=== PATIENT | male | born 1955 | race Caucasian/White ===

== ENCOUNTER → 2020-07-29 09:27 | Outpatient (REF) | payer MEDICARE, MEDICAID, SELFPAY ==
--- NOTE | 2020-07-29 09:30 | CA_ITS ---
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 The visually estimated ejection fraction is between 60-65%. - There is mild to moderate aortic valve stenosis (more towards mild). Findings Procedure Information Contrast agent, definity, is being given per protocol without apparent complications. Left Ventricle Normal left ventricular cavity size. There is mildly increased left ventricular wall thickness. The left ventricular systolic function is normal. The visually estimated ejection fraction is between 60-65%. There is no evidence of regional wall motion abnormalities. Diastolic function is normal for age. Right Ventricle Normal right ventricular cavity size and systolic function. Atria The left atrium is normal in size. The right atrium is normal in size. Aortic Valve There is a normal trileaflet aortic valve. There is moderate calcification of the aortic valve. There is mild to moderate aortic valve stenosis. The peak aortic velocity is 2.74 m/s with a calculated peak gradient of 30 mmHg. The mean gradient is 17 mmHg. The aortic valve area is 1.30 cm2. There is no aortic valve regurgitation. Mitral Valve The mitral valve appears normal. There is trace mitral valve regurgitation. There is no mitral valve stenosis. Pulmonic Valve The pulmonic valve was not well visualized. Tricuspid Valve Normal tricuspid valve structure. There is trace tricuspid valve regurgitation. The pulmonary artery systolic pressure is normal. Great Vessels The aortic annulus, sinuses of valsalva, and asc aorta are normal in size. Venous The inferior vena cava is normal in size and collapses greater than 50% with inspiration. Pericardium/Pleural There is no evidence of pericardial effusion. Prior Study Comparison No significant change compared to prior study dated: 06/24/2019. Measurements 2D Linear Measurements RVADd: 0.31 RVIDd: 2.83 IVSd: 1.12 0.6-0.9/0.6-1.0 cm LVIDd: 5.18 3.9-5.3/4.2-5.9 cm LVIDs: 3.35 2.0-3.6 cm LVPWd: 1.13 0.7-1.1 cm Ao Root: 3.24 2.1-3.5 cm LA Diam: 3.80 2.7-3.8/3.0-4.0 cm LV Mass: 281.48 67-162/88-224 g LVOT Diam: 2.00 3.0+(-)1.3 cm Mitral Valve MV Pk E: 0.78 MV PK A: 0.75 MV Decel Time: 295.55 E/A: 1.03 E'Lateral: 0.08 E'Medial: 0.07 Decel [place]: 2.63 Aortic Valve AoV Pk Alvin: 2.74 AoV Mn Alvin: 1.99 AoV VTI: 0.54 AoV Pk Grad: 30.07 Aov Mn Grad: 16.86 JIMBO Cont.VTI: 1.30 LVOT LVOT Pk Alvin: 1.11 LVOT Mn Alvin: 0.66 LVOT VTI: 0.19 LVOT Pk Grad: 4.96 LVOT Mn Grad: 2.25 LVOT Diam: 2.00 LVOT Area: 3.15 Diastolic Function MV Pk E: 0.78 MV Pk A: 0.75 E/A: 1.03 E'Medial: 0.07 E' Laterial: 0.08 Tricuspid Valve RA Press: 8.00 Great Vessels Aorta Ao Root-2D: 3.24 2.0-3.7 cm Ao Asc: 3.60 2.1-3.4 cm Ao Arch: 2.76 Updated in Other Vendor System with Status of Final Chente Deras MD electronically signed on 07/31/2020 10:34:27 AM with status of Final
== END ==
LOC: HO.CARD 09:27
PROVIDERS: PCP Internal Medicine; Visit Provider Internal Medicine Cardiovascular Disease
DX: I25.10 Atherosclerotic heart disease of native coronary artery without angina pectoris (principal); I10 Essential (primary) hypertension; I35.0 Nonrheumatic aortic (valve) stenosis
CPT/HCPCS: 93306; Q9957

== ENCOUNTER → 2020-08-30 13:44 | Outpatient (BNVA) | payer MEDICARE, MEDICAID, SELFPAY | PROVIDERS: PCP Internal Medicine; Visit Provider Internal Medicine Cardiovascular Disease | DX: R07.9 Chest pain, unspecified (principal); I35.0 Nonrheumatic aortic (valve) stenosis; I25.10 Atherosclerotic heart disease of native coronary artery without angina pectoris; Z79.899 Other long term (current) drug therapy | CPT/HCPCS: 93005; 99212 ==

== ENCOUNTER → 2020-09-27 08:45 | Outpatient (REF) | payer MEDICARE, MEDICAID, SELFPAY ==
--- NOTE | 2020-09-27 08:30 | CA_ITS ---
Acquisition Time: 2020-09-27 08:59:52 Total Exercise Time: 00:04:56 Test Indications: Chest Pain Medications: ALBUTEROL AMLODIPINE ATORVASTATIN DEXAMETHASONE FINESTERIDE GABAPENTIN VALSARTAN Protocol: EVA Max HR: 157 BPM 101% of Pred: 155 BPM Max BP: 204/088 mmHG Max Work Load: 6.1 METS Exercise nuclear stress test using Eva protocol total of 4 min 56 sec. METS 6.1MHR of 157 which was 101% of MAPHR. Pt SOB and second stage modified, as he was becoming more SOB. Pt had CP, pressure like pain since he had COVID in July, pain did not change during exercise. EKG with occ PVC's, asymptomatic. Mild ST depressions in leads 2, and V4 and V5. Hypertensive response to exercise that normalizes in recovery. Nuclear images to follow. Test reviewed with Dr. Deras Referred By: Yaya Blanchard Overread By: Sis Lau
--- NOTE | 2020-09-27 09:17 | NM_ITS ---
Exercise Myocardial perfusion study Indication: Atherosclerotic heart disease to evaluate for myocardial ischemia Technique: The patient was brought in for an exercise perfusion study on 09/27/2020. Patient performed exercise as per Alexandro protocol and was injected 28 mCi of sestamibi was given intravenously one target HR was achieved. Images were obtained using the SPECT gamma camera interlaced with the gating device. Images were obtained in supine position. Resting perfusion study was performed on 09/29/2020. Patient was administered 28 mCi of sestamibi intravenously at rest. Images were then obtained in supine position. Images obtained with and without CT attenuation. Total DLP 78 mGy-cm. Images were processed with the software and compared side to side in short axis, horizontal long axis and vertical long axis views. Findings: The stress perfusion study showed non attenuated images show thinning of the basal and mid anterior wall of the LV myocardium reduction uptake. There is also mildly reduced uptake in the basal inferior wall of the LV myocardium. Attenuation corrected images show mildly reduced uptake in the distal anterior and apex of the LV myocardium.. The gated study shows normal LV systolic function with calculated LVEF of 72%. LV cavity is mildly dilated in size. The gated study shows systolic wall thickening and contraction of all segments. There is no transient ischemic dilation. Resting study shows attenuated corrected images show improved uptake in the distal septum and apex in the inferior wall of the LV myocardium.. Gating at rest reveals normal systolic wall motion with ejection fraction at 4%. The findings are consistent with small area of mild intensity distal septal, distal anterior and apical reversible defect suggestive of ischemia in LAD territory. NM/NM cardiolite stress test Impression: 1. Mild intensity small area of distal LAD territory 2. Gated LVEF is 72% 3. Transient ischemic dilatation not present but LV cavity is dilated Stress EKG is equivocal for ischemia
== END ==
LOC: HO.CARD 08:45
PROVIDERS: PCP Internal Medicine; Visit Provider Internal Medicine Cardiovascular Disease
DX: I25.10 Atherosclerotic heart disease of native coronary artery without angina pectoris (principal); I35.0 Nonrheumatic aortic (valve) stenosis; I10 Essential (primary) hypertension; E78.5 Hyperlipidemia, unspecified
CPT/HCPCS: 78452; 93017; 93306; A9500

== ENCOUNTER → 2020-10-27 11:10 | Outpatient (BNVA) | payer MEDICARE, MEDICAID, SELFPAY | PROVIDERS: PCP Internal Medicine; Visit Provider Urology | DX: N41.9 Inflammatory disease of prostate, unspecified (principal) | CPT/HCPCS: 81002; 99212 ==

== ENCOUNTER 2020-11-06 17:39 | Emergency (ER) | payer MEDICARE, MEDICAID, SELFPAY ==
[2020-11-06 19:49] VITALS: BP 175/109; PULSE 84; RESP 18; TEMP 36.8; O2SAT 96
[2020-11-06 21:43] VITALS: BP 153/81; PULSE 78; RESP 18; O2SAT 96
[2020-11-06 21:53] LABS: MANUAL DIFF FLAG NO
[2020-11-06 21:59] LABS: Basophils Percent Auto 0.6 % (0-2); Eosinophils Absolute Auto 0.2 X10*3/uL (0.0-0.4); Eosinophils Percent Auto 3.1 % (0-4); Hematocrit 37.3 % (42-52); Hemoglobin 12.4 g/dl (14.0-18.0); Imm Gran Abs Auto 0.01 X10*3/uL (0.00-0.03); Imm Gran Pct Auto 0.1 % (0.0-0.4); Lymphocytes Absolute Auto 2.4 X10*3/uL (1.2-4.9); Lymphocytes Percent Auto 34.1 % (20-40); Mean Corpuscular HGB Conc 33.2 g/dl (31.0-36.0); Mean Corpuscular Hemoglobin 26.7 pg (27.0-33.0); Mean Corpuscular Volume 80.2 fL (80-98); Mean Platelet Volume 9.5 fL (9.4-12.4); Monocytes Absolute Auto 0.7 X10*3/uL (0.1-1.2); Monocytes Percent Auto 9.5 % (2-11); Neutrophils Absolute Auto 3.8 X10*3/uL (2.0-8.3); Neutrophils Percent Auto 52.6 % (45-73); Platelet Count 244 X10*3/uL (160-400); Red Blood Count 4.65 X10*6/uL (4.60-5.80); Red Cell Distribution Width 14.2 % (11.0-16.0); White Blood Count 7.2 X10*3/uL (4.8-10.8)
[2020-11-06 22:16] VITALS: BP 159/82; PULSE 71; RESP 18; O2SAT 96
[2020-11-06 22:20] LABS: Anion Gap 14 (12-20); Blood Urea Nitrogen 14 mg/dL (9-16); Calcium 9.1 mg/dL (8.4-10.2); Carbon Dioxide 25 mmol/L (22-29); Chloride 107 mmol/L (96-108); Estimated Glomerular Filt Rate > 60; Glucose Random 115 mg/dL (60-115); Potassium 3.6 mmol/l (3.3-5.1); Sodium 142 mmol/L (135-145)
[2020-11-06 22:26] LABS: Glucose Urine UA NEG (NEG); Leukocyte Esterase Urine NEG (NEG); Nitrite Urine NEG (NEG); Urine Blood NEG (NEG); Urine Ketones NEG (NEG); Urine Protein NEG (NEG-TRACE)
[2020-11-06 22:29] LABS: Appearance Urine CLEAR; Color Urine YELLOW
--- NOTE | 2020-11-06 22:40 | ECG_ITS ---
Test Reason : CHEST PAIN Blood Pressure : / mmHG Vent. Rate : 070 BPM Atrial Rate : 070 BPM P-R Int : 164 ms QRS Dur : 096 ms QT Int : 422 ms P-R-T Axes : 031 003 024 degrees QTc Int : 455 ms Normal sinus rhythm Normal ECG When compared with ECG of 25-AUG-2019 21:07, No significant change was found Referred By: Elizabeth Nelson Electronically Signed By:ALBERTINA FULLER
--- NOTE | 2020-11-06 22:55 | ED_ITS ---
HPI - General Adult General Chief complaint: General Medical Stated complaint: hot sweats Time Seen by Provider: 11/06/20 22:25 Source: patient Mode of arrival: ambulatory Limitations: no limitations History of Present Illness HPI narrative: Patient comes emergency room complaining of 3 episodes of sweating. Patient states that today he had 3 episodes of sweating, unrelated to exertion. Patient states this has never happened before. Patient states that he did not have any chest pain or shortness of breath or dizziness. The sweating episode lasted for a few seconds, felt like a cold sweat, and self-resolved. Patient decided to come to emergency room to get checked. At this time, patient is asymptomatic, no sweating, no chest pain or shortness of breath and no dizziness. No fever. Related Data Home Medications Medication Instructions Recorded Confirmed albuterol sulfate 90 mcg/actuation INHALATION 08/30/20 aerosol inhaler amlodipine 5 mg tablet 5 mg PO DAILY 08/30/20 atorvastatin 20 mg tablet 20 mg PO DAILY 08/30/20 dexamethasone 2 mg tablet 6 mg PO QAM 08/30/20 dexlansoprazole 60 mg 60 mg PO DAILY 08/30/20 capsule,biphase delayed release diclofenac sodium 75 mg 75 mg PO BID 08/30/20 tablet,delayed release finasteride 5 mg tablet 5 mg PO DAILY 08/30/20 fluticasone furoate 100 INHALATION 08/30/20 mcg-vilanterol 25 mcg/dose inhalation powder fluticasone propionate 50 2 spray INTRANASAL DAILY 08/30/20 mcg/actuation nasal spray,suspension gabapentin 300 mg capsule 300 mg PO DAILY cap 08/30/20 lorazepam 0.5 mg tablet 0.5 mg PO DAILY PRN 08/30/20 valsartan 160 mg tablet 160 mg PO DAILY 08/30/20 Previous Rx's Medication Instructions Recorded ciprofloxacin HCl 500 mg tablet 500 mg PO Q12H 14 Days #28 tab 10/27/20 meloxicam 15 mg tablet 15 mg PO DAILY 30 Days #30 tab 10/27/20 prednisone 20 mg tablet 20 mg PO DAILY 5 Days #5 tab 10/27/20 Allergies Allergy/AdvReac Type Severity Reaction Status Date / Time No Known Allergies Allergy Unverified 07/07/20 15:19 [No Known Allergies*] Review of Systems Review of Systems: Constitutional : No Weight loss, No Fever, No Chills, No Night Sweats, No Fatigue, No Malaise , complaining of cold sweats ENT/Mouth : No Hearing loss, No Ear Pain, No Nasal Congestion, No Sinus Pain, No Hoarseness, No sore throat, No Rhinorrhea, No Swallowing Difficulty Eyes: No Eye Pain, No Swelling, No Redness, No Foreign Body, No Discharge, No Vision Changes Cardiovascular : No Chest Pain, No SOB, No Dyspnea on Exertion, No Orthopnea, No Edema, No Palpitations Respiratory : No Cough, No Sputum, No Wheezing, No Smoke Exposure, No Dyspnea Gastrointestinal : No Nausea, No Vomiting, No Diarrhea, No Constipation, No abdominal Pain, No Hematochezia, No Melena Genitourinary : no irregular bleeding, No Dysuria, No Urinary Frequency, No Hematuria, No Urinary Incontinence, No Urgency, No Flank Pain, No Urinary Flow Changes, No Hesitancy Musculoskeletal : No joint pain, No Myalgias, No Joint Swelling Skin : No Skin Lesions, No rash Neuro : No Weakness, No Numbness, No Paresthesias, No Loss of Consciousness, No Dizziness, No Headache Psych : No Anxiety/Panic, No Depression, No SI/HI/AH/VH, No Social Issues, Heme/Lymph: No Bruising, No Bleeding,No Lymphadenopathy Endocrine : No Polyuria, No Polydipsia, No Temperature Intolerance PMFSH Past Medical History Medical History Aortic stenosis CAD (coronary artery disease) HTN (hypertension) Hyperlipidemia Surgical History Hx of cystoscopy Hx of sigmoidoscopy Family History Family History Father Cardiac arrest Hyperlipemia Mother No problems noted. Brother Cardiac arrest Social History Social History Smoking Status: Never smoker Advance Directives: No Advance Directives Information Provided: Yes Physical Exam Vital Signs: Vital Signs: Last Vital Signs Temp 97.7 F 11/06/20 23:45 Pulse 70 11/06/20 23:45 Resp 18 11/06/20 23:45 BP 154/90 H 11/06/20 23:45 Pulse Ox 97 11/06/20 23:45 Body Mass Index 34.3 Appearance: Alert. Oriented X3. No acute distress. Eyes: Pupils equal, round and reactive to light. ENT: Pharynx normal. Neck: Normal inspection. Neck supple. No lymph nodes noted. No crepitus CVS: Normal heart rate and rhythm. Pulses normal. Normal S1 and S2 Respiratory: No respiratory distress. Breath sounds normal. No Wheezing. No rales Abdomen: Soft and nontender. No rigidity. No distention. good BS x4 Skin: Skin warm and dry. Normal skin color. Normal skin turgor. Extremities: No lower extremity edema. No lower extremity edema. No Laceration s. No Rash Neuro: Oriented X 3. No motor deficit. No sensory deficit. Moving all extermities. No slurred speech. Course Course Course Narrative: Patient has been completely asymptomatic in the emergency room, no sweating episodes, no chest pain or shortness of breath. Patient's troponin 1. Was slightly elevated at 8.0, EKG showed no ST segment depressions or elevations. Patient was supposed to get a troponin 2. At 12:50, patient states that he does not want to wait for the 2nd troponin, states he feels well, wants to be discharged home. I discussed with the patient that in order to make sure that the swelling episodes are not from cardiac origin, we should get a troponin, however patient declined states he will follow-up with his primary care doctor tomorrow. Medical Decision Making Lab Data Result diagrams: 11/06/20 21:49 11/06/20 21:49 Labs: Lab Results 11/06/20 11/06/20 11/06/20 Range/Units 21:49 21:49 21:49 WBC 7.2 (4.8-10.8) X10*3/uL RBC 4.65 (4.60-5.80) X10*6/uL Hgb 12.4 L (14.0-18.0) g/dl Hct 37.3 L (42-52) % MCV 80.2 (80-98) fL MCH 26.7 L (27.0-33.0) pg MCHC 33.2 (31.0-36.0) g/dl RDW 14.2 (11.0-16.0) % Plt Count 244 (160-400) X10*3/uL MPV 9.5 (9.4-12.4) fL Immature Gran % (Auto) 0.1 (0.0-0.4) % Neut % (Auto) 52.6 (45-73) % Lymph % (Auto) 34.1 (20-40) % [place] % (Auto) 9.5 (2-11) % Eos % (Auto) 3.1 (0-4) % Baso % (Auto) 0.6 (0-2) % Lymph # (Auto) 2.4 (1.2-4.9) X10*3/uL [place] # (Auto) 0.7 (0.1-1.2) X10*3/uL Eos # (Auto) 0.2 (0.0-0.4) X10*3/uL Baso # (Auto) 0.0 (0.0-0.2) X10*3/uL Abs Immat Gran (auto) 0.01 (0.00-0.03) X10*3/uL Absolute Neuts (auto) 3.8 (2.0-8.3) X10*3/uL Absolute Nucleated RBC 0.000 (0.0-0.012) X10*3/uL Nucleated RBC % (auto) 0.0 (0.0-0.2) /100WBC Hold Purple Top SEE NOTE Hold Blue Top Sodium 142 (135-145) mmol/L Potassium 3.6 (3.3-5.1) mmol/l Chloride 107 (96-108) mmol/L Carbon Dioxide 25 (22-29) mmol/L Anion Gap 14 (12-20) BUN 14 (9-16) mg/dL Creatinine 0.96 (0.5-1.4) mg/dL Estim Creat Clear Calc TNP Estimated GFR > 60 Random Glucose 115 (60-115) mg/dL Calcium 9.1 (8.4-10.2) mg/dL Troponin I High Sens (<3.5-35.0) ng/L Urine Color Urine Appearance Urine pH (5.0-8.0) Ur Specific [place] (1.005-1.025) Urine Protein (NEG-TRACE) MG/DL Urine Glucose (UA) (NEG) MG/DL Urine Ketones (NEG) MG/DL Urine Blood (NEG) Urine Nitrite (NEG) Ur Leukocyte Esterase (NEG) 01/17/21 01/17/21 01/17/21 Range/Units 21:49 21:49 22:18 WBC (4.8-10.8) X10*3/uL RBC (4.60-5.80) X10*6/uL Hgb (14.0-18.0) g/dl Hct (42-52) % MCV (80-98) fL MCH (27.0-33.0) pg MCHC (31.0-36.0) g/dl RDW (11.0-16.0) % Plt Count (160-400) X10*3/uL MPV (9.4-12.4) fL Immature Gran % (Auto) (0.0-0.4) % Neut % (Auto) (45-73) % Lymph % (Auto) (20-40) % [place] % (Auto) (2-11) % Eos % (Auto) (0-4) % Baso % (Auto) (0-2) % Lymph # (Auto) (1.2-4.9) X10*3/uL [place] # (Auto) (0.1-1.2) X10*3/uL Eos # (Auto) (0.0-0.4) X10*3/uL Baso # (Auto) (0.0-0.2) X10*3/uL Abs Immat Gran (auto) (0.00-0.03) X10*3/uL Absolute Neuts (auto) (2.0-8.3) X10*3/uL Absolute Nucleated RBC (0.0-0.012) X10*3/uL Nucleated RBC % (auto) (0.0-0.2) /100WBC Hold Purple Top Hold Blue Top SEE NOTE Sodium (135-145) mmol/L Potassium (3.3-5.1) mmol/l Chloride (96-108) mmol/L Carbon Dioxide (22-29) mmol/L Anion Gap (12-20) BUN (9-16) mg/dL Creatinine (0.5-1.4) mg/dL Estim Creat Clear Calc Estimated GFR Random Glucose (60-115) mg/dL Calcium (8.4-10.2) mg/dL Troponin I High Sens 8.1 (<3.5-35.0) ng/L Urine Color YELLOW Urine Appearance CLEAR Urine pH 7.0 (5.0-8.0) Ur Specific [place] 1.020 (1.005-1.025) Urine Protein NEG (NEG-TRACE) MG/DL Urine Glucose (UA) NEG (NEG) MG/DL Urine Ketones NEG (NEG) MG/DL Urine Blood NEG (NEG) Urine Nitrite NEG (NEG) Ur Leukocyte Esterase NEG (NEG) ECG Data Attestation: I personally reviewed and interpreted this ECG as follows: (Heart rate 70, sinus rhythm, QTC 455, nonspecific T-wave inversions in lead III, nonspecific ST elevation in lead aVL and V6 less than 1 mm) Discharge Plan Discharge Clinical Impression: Sweating, HTN (hypertension) Patient Disposition: Home, Self-Care Additional Instructions: Please follow-up with her primary care physician tomorrow, you may need readjustment with your blood pressure medications. At this time we will not change your current dose. Please follow-up with your primary care physician tomorrow. If you have any worsening or new symptoms, please return to the emergency room or call 911 Prescriptions: No Action finasteride 5 mg tablet 5 mg PO DAILY RF: 0 Breo Ellipta 100-25 mcg/dose blister with device inhalation RF: 0 dexamethasone 2 mg tablet 6 mg PO QAM RF: 0 fluticasone propionate 50 mcg/actuation spray,suspension 2 spray intranasal DAILY RF: 0 albuterol sulfate 90 mcg/actuation HFA aerosol inhaler inhalation RF: 0 lorazepam 0.5 mg tablet 0.5 mg PO DAILY PRN (Reason: anxiety) RF: 0 amlodipine 5 mg tablet 5 mg PO DAILY RF: 0 valsartan 160 mg tablet 160 mg PO DAILY RF: 0 atorvastatin 20 mg tablet 20 mg PO DAILY RF: 0 Dexilant 60 mg capsule,biphase delayed releas 60 mg PO DAILY RF: 0 diclofenac sodium 75 mg tablet,delayed release (DR/EC) 75 mg PO BID RF: 0 gabapentin 300 mg capsule 300 mg PO DAILY RF: 0 ciprofloxacin HCl 500 mg tablet 500 mg PO Q12H 14 Days Qty: 28 RF: 0 prednisone 20 mg tablet 20 mg PO DAILY 5 Days Qty: 5 RF: 0 meloxicam [Mobic] 15 mg tablet 15 mg PO DAILY 30 Days Qty: 30 RF: 0
[2020-11-06 23:02] VITALS: BP 150/76; PULSE 79; RESP 18; TEMP 36.6; O2SAT 96; BMI 34.3
[2020-11-06 23:24] LABS: Troponin-I High Sensitivity 8.1 ng/L (<3.5-35.0)
[2020-11-06 23:45] VITALS: BP 154/90; PULSE 70; RESP 18; TEMP 36.5; O2SAT 97
== END 2020-11-07 01:17 | disposition home or self-care (01) ==
PROVIDERS: Emergency Provider Emergency Medicine; PCP Internal Medicine
DX: R61 Generalized hyperhidrosis (principal); I10 Essential (primary) hypertension; Z20.822 Contact with and (suspected) exposure to COVID-19; Z79.899 Other long term (current) drug therapy
CPT/HCPCS: 36415; 80048; 81003; 84484; 85025; 93005; 99283; 99284

== ENCOUNTER → 2020-12-16 09:34 | Outpatient (BNVA) | payer MEDICARE, MEDICAID, SELFPAY | PROVIDERS: PCP Internal Medicine; Visit Provider Surgery | DX: R07.9 Chest pain, unspecified (principal); Z79.899 Other long term (current) drug therapy; M79.2 Neuralgia and neuritis, unspecified | CPT/HCPCS: 99212 ==

== ENCOUNTER → 2021-01-24 14:02 | Outpatient (BNVA) | payer MEDICARE, MEDICAID, SELFPAY | PROVIDERS: PCP Internal Medicine; Visit Provider Physician Assistant | DX: K21.9 Gastro-esophageal reflux disease without esophagitis (principal) | CPT/HCPCS: 99212 ==

== ENCOUNTER → 2021-01-25 10:37 | Outpatient (BNVA) | payer MEDICARE, MEDICAID, SELFPAY | PROVIDERS: Visit Provider Orthopaedic Surgery | DX: M19.011 Primary osteoarthritis, right shoulder (principal); M19.012 Primary osteoarthritis, left shoulder | CPT/HCPCS: 99212 ==

== ENCOUNTER → 2021-02-03 08:46 | Outpatient (BNVA) | payer MEDICARE, MEDICAID, SELFPAY | PROVIDERS: PCP Internal Medicine; Visit Provider Surgery | DX: M79.2 Neuralgia and neuritis, unspecified (principal); Z79.899 Other long term (current) drug therapy; Z90.2 Acquired absence of lung [part of] | CPT/HCPCS: 99212 ==

== ENCOUNTER 2021-02-22 09:13 | Outpatient (REF) | payer MEDICARE, MEDICAID, SELFPAY ==
[2021-02-22 11:02] LABS: Anion Gap 13 (12-20); Blood Urea Nitrogen 14 mg/dL (9-16); Calcium 9.5 mg/dL (8.4-10.2); Carbon Dioxide 27 mmol/L (22-29); Chloride 106 mmol/L (96-108); Estimated Glomerular Filt Rate > 60; Potassium 3.9 mmol/L (3.3-5.1); Sodium 142 mmol/L (135-145)
== END 2021-02-22 09:14 | disposition home or self-care (01) ==
LOC: HO.LAB 09:13
PROVIDERS: Visit Provider Internal Medicine Nephrology
DX: I10 Essential (primary) hypertension (principal); R80.9 Proteinuria, unspecified; N20.0 Calculus of kidney
CPT/HCPCS: 36415; 80051; 82310; 82565; 84520

== ENCOUNTER → 2021-03-02 10:55 | Outpatient (BNVA) | payer MEDICARE, MEDICAID, SELFPAY | PROVIDERS: PCP Internal Medicine; Visit Provider Nurse Practitioner Family | DX: Z01.810 Encounter for preprocedural cardiovascular examination (principal); I25.10 Atherosclerotic heart disease of native coronary artery without angina pectoris; E78.5 Hyperlipidemia, unspecified; I10 Essential (primary) hypertension; I35.0 Nonrheumatic aortic (valve) stenosis | CPT/HCPCS: 93005; 99212 ==

== ENCOUNTER 2021-04-07 11:34 | Outpatient (REF) | payer MEDICARE, MEDICAID, SELFPAY ==
[2021-04-07 14:12] LABS: Cholesterol 242 mg/dL; HDL Cholesterol 42 mg/dL; LDL Cholesterol Calculated 144 mg/dl; Triglycerides 282 mg/dL
[2021-04-07 14:26] LABS: PSA,Total (Free>4and<10) 2.77 ng/mL (0.00-4.00)
== END 2021-04-07 11:35 | disposition home or self-care (01) ==
LOC: HO.LAB 11:34
PROVIDERS: PCP Internal Medicine; Referring Provider Nurse Practitioner Family; Visit Provider Urology
DX: Z12.5 Encounter for screening for malignant neoplasm of prostate (principal); N40.0 Benign prostatic hyperplasia without lower urinary tract symptoms; E78.5 Hyperlipidemia, unspecified
CPT/HCPCS: 36415; 80061; 84153

== ENCOUNTER → 2021-04-14 10:24 | Outpatient (BNVA) | payer MEDICARE, MEDICAID, SELFPAY | PROVIDERS: PCP Internal Medicine; Visit Provider Urology | DX: N40.0 Benign prostatic hyperplasia without lower urinary tract symptoms (principal) | CPT/HCPCS: 99212 ==

== ENCOUNTER → 2021-05-16 12:40 | Outpatient (BNVA) | payer MEDICARE, MEDICAID, SELFPAY | PROVIDERS: PCP Internal Medicine; Referring Provider Internal Medicine; Visit Provider Nurse Practitioner Family | DX: Z13.89 Encounter for screening for other disorder (principal) | CPT/HCPCS: 93005; 99212 ==

== ENCOUNTER 2021-05-16 13:51 | Emergency (ER) | payer MEDICARE, MEDICAID, SELFPAY ==
--- NOTE | ~2021-05-16 | XR_ITS ---
EXAMINATION: XR CHEST CLINICAL INFORMATION: Chest pain COMPARISON: Previous chest x-rays most recent August [address] June 2019 TECHNIQUE: Frontal view of the chest was obtained. FINDINGS: The cardiac and mediastinal contours are stable. The cardiac silhouette is slightly enlarged. The thoracic aorta is tortuous. The lungs are clear. There is no pleural effusion or pneumothorax. There are degenerative changes of the spine and at the shoulder joints. XR/XR chest 1V IMPRESSION: Stable enlargement of the cardiac silhouette and tortuosity of the thoracic aorta. No evidence for acute disease in the chest.
--- NOTE | 2021-05-16 13:56 | ECG_ITS ---
Test Reason : CHEST PAIN Blood Pressure : / mmHG Vent. Rate : 061 BPM Atrial Rate : 061 BPM P-R Int : 166 ms QRS Dur : 094 ms QT Int : 434 ms P-R-T Axes : 044 -13 002 degrees QTc Int : 436 ms Normal sinus rhythm Normal ECG When compared with ECG of 06-NOV-2020 22:56, No significant change was found Referred By: Jerrod Bullard Electronically Signed By:ALBERTINA FULLER
[2021-05-16 14:14] LABS: MANUAL DIFF FLAG NO
[2021-05-16 14:15] LABS: Basophils Percent Auto 0.6 % (0-2); Eosinophils Absolute Auto 0.2 X10*3/uL (0.0-0.4); Eosinophils Percent Auto 2.9 % (0-4); Hematocrit 37.2 % (42-52); Hemoglobin 12.6 g/dl (14.0-18.0); Imm Gran Abs Auto 0.02 X10*3/uL (0.00-0.03); Imm Gran Pct Auto 0.3 % (0.0-0.4); Lymphocytes Absolute Auto 1.9 X10*3/uL (1.2-4.9); Lymphocytes Percent Auto 27.6 % (20-40); Mean Corpuscular HGB Conc 33.9 g/dl (31.0-36.0); Mean Corpuscular Hemoglobin 26.8 pg (27.0-33.0); Mean Corpuscular Volume 79.1 fL (80-98); Mean Platelet Volume 9.7 fL (9.4-12.4); Monocytes Absolute Auto 0.7 X10*3/uL (0.1-1.2); Monocytes Percent Auto 9.5 % (2-11); Neutrophils Absolute Auto 4.1 X10*3/uL (2.0-8.3); Neutrophils Percent Auto 59.1 % (45-73); Platelet Count 243 X10*3/uL (160-400); Red Cell Distribution Width 13.2 % (11.0-16.0)
[2021-05-16 14:17] VITALS: BP 144/74; PULSE 60; RESP 14; TEMP 36.5; O2SAT 98; BMI 34.8
[2021-05-16] MEDS: 0.9 % Sodium Chloride 1,000 ML 999 ML IV (14:26)
--- NOTE | 2021-05-16 14:31 | ED.CHESTPAIN ---
HPI - Chest Pain General Chief Complaint: Chest Pain Stated Complaint: Chest Pain Time Seen by Provider: 05/16/21 14:18 Source: patient Mode of arrival: wheelchair Limitations: no limitations History of Present Illness HPI narrative: 65-year-old male who was brought to the emergency department for evaluation of chest pain. The patient was at the batt machine operator's office for preop clearance for an endoscopy. While he was in the batt machine operator's waiting room he developed chest pain. The following information was obtained from today's note by the nurse practitioner, Rica Pineda. Zac is a 65-year-old male with past medical history of hypertension, hyperlipidemia, [id number] , CAD with mildly abnormal stress test who presents for preop cardiovascular clearance for upper endoscopy. Today he reports that he has been getting some left sided chest discomfort at times without pattern. He has had it with sitting and with activity. It lasts above 10 min and usual goes away. He did get his discomfort when he sat down in the waiting room after arriving for this visit. It is still present and feels like a pressure. He has some left shoulder discomfort when raising up his left arm but states that is a different pains. He denies having any shortness of breath, palpitations, dizziness, presyncope, syncope, PND, orthopnea or edema today or recently. Planning endoscopy on 05/24/21. 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 Takes all meds as directed. The patient give me a very similar story regarding his chest pain. He states that the pain in the batt machine operator's office was a heaviness located in his left chest radiating to his left shoulder, the pain was 10/10. He was given 1 nitroglycerin sublingually and he states that he got very ?sweaty and he felt like he was going to pass out. The patient was then transported to the emergency department for evaluation. Here in the emergency department he states that his chest pain is 5/10. Related Data Home Medications Medication Instructions Recorded Confirmed albuterol sulfate 90 mcg/actuation 2 puff INHALATION Q4-6H PRN 08/30/20 05/16/21 aerosol inhaler dexamethasone 2 mg tablet 6 mg PO QAM 08/30/20 05/16/21 dexlansoprazole 60 mg 60 mg PO DAILY 08/30/20 05/16/21 capsule,biphase delayed release fluticasone furoate 100 INHALATION 08/30/20 05/16/21 mcg-vilanterol 25 mcg/dose inhalation powder fluticasone propionate 50 2 spray INTRANASAL DAILY 08/30/20 05/16/21 mcg/actuation nasal spray,suspension lorazepam 0.5 mg tablet 0.5 mg PO DAILY PRN 08/30/20 05/16/21 valsartan 160 mg tablet 160 mg PO DAILY 08/30/20 05/16/21 cyclobenzaprine 10 mg tablet 10 mg PO BID PRN 01/24/21 05/16/21 latanoprost 0.005 % eye drops 1 drp OPHTHALMIC (EYE) DAILY ml 01/24/21 05/16/21 diclofenac sodium 75 mg 75 mg PO BID 04/14/21 05/16/21 tablet,delayed release chlorthalidone 25 mg tablet 25 mg PO DAILY 05/16/21 05/16/21 Previous Rx's Medication Instructions Recorded meloxicam 15 mg tablet 15 mg PO DAILY 30 Days #30 tab 11/21/20 atorvastatin 40 mg tablet 40 mg PO BEDTIME 90 Days #90 tab 04/10/21 Allergies Allergy/AdvReac Type Severity Reaction Status Date / Time No Known Allergies Allergy Verified 05/16/21 12:59 [No Known Allergies*] Review of Systems Review of Systems: Yes all other systems are reviewed and are negative [facility] Past Medical History Medical History Acid reflux Aortic stenosis CAD (coronary artery disease) HTN (hypertension) Hyperlipidemia Surgical History H/O colonoscopy History of esophagogastroduodenoscopy (EGD) History of lung surgery Hx of cystoscopy Hx of sigmoidoscopy Family History Family History Father Cardiac arrest Hyperlipemia Mother No problems noted. Brother Cardiac arrest Social History Social History Household Members: Spouse Alcohol intake: current Alcohol intake frequency: does not drink Smoked in Last 30 Days: No Use of substances other than those prescribed or required for medical reasons: No Advance Directives: No Advance Directives Information Provided: Yes Physical Exam Vital Signs: Vital Signs: Last Vital Signs Temp 97.7 F 05/16/21 14:17 Pulse 60 05/16/21 14:17 Resp 14 05/16/21 14:17 BP 144/74 H 05/16/21 14:17 Pulse Ox 98 05/16/21 14:17 Body Mass Index 34.8 Const: General: cooperative and healthy appearing Orientation/consciousness: oriented to person and oriented to place Limitations: no limitations HENMT: Head: Yes normal to inspection, Yes normocephalic and Yes atraumatic Ears: external ears normal General nose exam: Normal external nose present Face and sinus: Yes normal facial exam Mouth: Normal oral and palatal mucosa present Throat: Yes posterior oropharynx normal Eyes: Periorbital: periorbital findings normal Eyelids: Yes eyelids normal Conjunctivae: conjunctivae normal Sclerae: sclerae normal Corneas: corneas normal Pupils: Equal, round and reactive pupils present Direct Ophthalmoscopy: normal light reflex Neck: Neck: Yes full ROM, Yes no lymphadenopathy, Yes no meningeal signs, Yes trachea midline and Yes supple Chest: Chest palpation & inspection: normal inspection of the chest and normal palpation of entire chest wall Resp: Effort & Inspection: normal respiratory effort and able to speak in complete sentences Auscultation: clear to auscultation bilaterally Cardio: Rate: regular rate Rhythm: regular rhythm Heart sounds: S1 normal heart sound present, S2 normal heart sound present and Murmur heart sound present systolic II/ and at the right sternal border GI: Inspection: Yes normal to inspection Palpation (GI): Soft to palpation, nontender, no guarding, not rigid and No hepatosplenomegaly present : General: Yes no CVA tenderness Back/Spine/Pelvis: Back: no CVA tenderness Cervical Spine: normal cervical lordosis Thoracic/Lumbar Spine: thoracic and lumbar spine normal to inspection Skin: Lesions: no lesions Rashes: no rashes Wounds: no wounds Neuro: General: oriented to person, oriented to place and no meningeal signs Cranial nerves: Yes CN's II-XII intact bilaterally and Yes Equal, round and reactive pupils present Cognition (Neuro): normal cognition Motor exam (neuro): 5/5 motor strength present throughout Extrem: General: Yes normal to inspection and Yes full ROM Psych: Appearance: well kempt Mental Status: mental status grossly normal Speech and movement: Normal speech and movement present Affect: normal affect Attitude: cooperative Thought process: Normal thought process present Thought content: Normal thought content present Course Course Course Narrative: 65-year-old male who presents emergency department for evaluation of chest pain that began while he was in the batt machine operator's waiting room. The patient describes the pain as a heaviness in his left chest that radiated left shoulder. The patient was treated with nitroglycerin which made him hypotensive and diaphoretic. Here in the emergency department he states that his pain is 5/10. The patient has been experiencing similar episodes of chest pain over the past 2-3 weeks, these episodes of chest pain do not appear to be related to his activity level. Patient's vital signs in the emergency department revealed a blood pressure of 144/74 otherwise were unremarkable. Examination did reveal a to of 6 systolic murmur otherwise exam was unremarkable. I did order a cardiac workup. Dr. Blanchard has requested an echocardiogram and this will be obtained to evaluate the patient's aortic valve and to evaluate for any wall motion abnormalities. The patient's initial 12 lead EKG revealed an inverted T-wave in 3 and a Q-wave in V1 otherwise was unremarkable. This was unchanged compared to an EKG obtained on 03/02/2021. 1645: Patient's laboratory evaluation revealed a detectable but not elevated troponin at 15.2. This will be repeated at 5:15 p.m. The rest of patient's laboratory evaluation is unremarkable. Chest x-ray radiology reading was as follows:Stable enlargement of the cardiac silhouette and tortuosity of the thoracic aorta. No evidence for acute disease in the chest. At the end of my shift, the patient's care was turned over to my colleague, Dr. Weinstein. MDM - Chest Pain Lab Data Result diagrams: 05/16/21 14:06 05/16/21 14:00 Labs: Lab Results 05/16/21 05/16/21 05/16/21 Range/Units 14:00 14:06 14:06 WBC 7.0 (4.8-10.8) X10*3/uL RBC 4.70 (4.60-5.80) X10*6/uL Hgb 12.6 L (14.0-18.0) g/dl Hct 37.2 L (42-52) % MCV 79.1 L (80-98) fL MCH 26.8 L (27.0-33.0) pg MCHC 33.9 (31.0-36.0) g/dl RDW 13.2 (11.0-16.0) % Plt Count 243 (160-400) X10*3/uL MPV 9.7 (9.4-12.4) fL Immature Gran % (Auto) 0.3 (0.0-0.4) % Neut % (Auto) 59.1 (45-73) % Lymph % (Auto) 27.6 (20-40) % [place] % (Auto) 9.5 (2-11) % Eos % (Auto) 2.9 (0-4) % Baso % (Auto) 0.6 (0-2) % Lymph # (Auto) 1.9 (1.2-4.9) X10*3/uL [place] # (Auto) 0.7 (0.1-1.2) X10*3/uL Eos # (Auto) 0.2 (0.0-0.4) X10*3/uL Baso # (Auto) 0.0 (0.0-0.2) X10*3/uL Abs Immat Gran (auto) 0.02 (0.00-0.03) X10*3/uL Absolute Neuts (auto) 4.1 (2.0-8.3) X10*3/uL Absolute Nucleated RBC 0.000 (0.0-0.012) X10*3/uL Nucleated RBC % (auto) 0.0 (0.0-0.2) /100WBC Sodium 142 Cancelled (135-145) mmol/L Potassium 3.4 Cancelled (3.3-5.1) mmol/L Chloride 102 Cancelled (96-108) mmol/L Carbon Dioxide 32 H Cancelled (22-29) mmol/L Anion Gap 11 L Cancelled (12-20) BUN 17 H Cancelled (9-16) mg/dL Creatinine 1.22 Cancelled (0.5-1.4) mg/dL Estim Creat Clear Calc 61.7 Cancelled Estimated GFR 60 Cancelled Random Glucose 105 Cancelled (60-115) mg/dL Calcium 9.3 Cancelled (8.4-10.2) mg/dL Total Bilirubin 0.5 (0.0-1.0) mg/dL AST 21 (5-37) U/L ALT 18 (0-40) U/L Alkaline Phosphatase 84 (39-117) U/L Troponin I High Sens (<3.5-35.0) ng/L Total Protein 7.3 (6.5-8.0) g/dL Albumin 4.2 (3.5-5.0) g/dL 05/16/21 Range/Units 14:06 WBC (4.8-10.8) X10*3/uL RBC (4.60-5.80) X10*6/uL Hgb (14.0-18.0) g/dl Hct (42-52) % MCV (80-98) fL MCH (27.0-33.0) pg MCHC (31.0-36.0) g/dl RDW (11.0-16.0) % Plt Count (160-400) X10*3/uL MPV (9.4-12.4) fL Immature Gran % (Auto) (0.0-0.4) % Neut % (Auto) (45-73) % Lymph % (Auto) (20-40) % [place] % (Auto) (2-11) % Eos % (Auto) (0-4) % Baso % (Auto) (0-2) % Lymph # (Auto) (1.2-4.9) X10*3/uL [place] # (Auto) (0.1-1.2) X10*3/uL Eos # (Auto) (0.0-0.4) X10*3/uL Baso # (Auto) (0.0-0.2) X10*3/uL Abs Immat Gran (auto) (0.00-0.03) X10*3/uL Absolute Neuts (auto) (2.0-8.3) X10*3/uL Absolute Nucleated RBC (0.0-0.012) X10*3/uL Nucleated RBC % (auto) (0.0-0.2) /100WBC Sodium (135-145) mmol/L Potassium (3.3-5.1) mmol/L Chloride (96-108) mmol/L Carbon Dioxide (22-29) mmol/L Anion Gap (12-20) BUN (9-16) mg/dL Creatinine (0.5-1.4) mg/dL Estim Creat Clear Calc Estimated GFR Random Glucose (60-115) mg/dL Calcium (8.4-10.2) mg/dL Total Bilirubin (0.0-1.0) mg/dL AST (5-37) U/L ALT (0-40) U/L Alkaline Phosphatase (39-117) U/L Troponin I High Sens 15.1 (<3.5-35.0) ng/L Total Protein (6.5-8.0) g/dL Albumin (3.5-5.0) g/dL Discharge Plan Discharge Prescriptions: No Action meloxicam [Mobic] 15 mg tablet 15 mg PO DAILY 30 Days Qty: 30 RF: 6 atorvastatin 40 mg tablet 40 mg PO BEDTIME 90 Days Qty: 90 RF: 1 diclofenac sodium 75 mg tablet,delayed release (DR/EC) 75 mg PO BID RF: 0 chlorthalidone 25 mg tablet 25 mg PO DAILY RF: 0 Breo Ellipta 100-25 mcg/dose blister with device inhalation RF: 0 dexamethasone 2 mg tablet 6 mg PO QAM RF: 0 fluticasone propionate 50 mcg/actuation spray,suspension 2 spray intranasal DAILY RF: 0 albuterol sulfate 90 mcg/actuation HFA aerosol inhaler 2 puff inhalation Q4-6H PRN (Reason: Wheezing) RF: 0 lorazepam 0.5 mg tablet 0.5 mg PO DAILY PRN (Reason: anxiety) RF: 0 valsartan 160 mg tablet 160 mg PO DAILY RF: 0 Dexilant 60 mg capsule,biphase delayed releas 60 mg PO DAILY RF: 0 latanoprost 0.005 % drops 1 drp ophthalmic (eye) DAILY RF: 0 cyclobenzaprine 10 mg tablet 10 mg PO BID PRN (Reason: Pain) RF: 0
[2021-05-16 14:40] LABS: Alanine Aminotransferase 18 U/L (0-40); Albumin Level 4.2 g/dL (3.5-5.0); Alkaline Phosphatase 84 U/L (39-117); Anion Gap 11 (12-20); Aspartate Amino Transferase 21 U/L (5-37); Bilirubin Total 0.5 mg/dL (0.0-1.0); Blood Urea Nitrogen 17 mg/dL (9-16); Calcium 9.3 mg/dL (8.4-10.2); Carbon Dioxide 32 mmol/L (22-29); Chloride 102 mmol/L (96-108); Creatinine Clr Calc Pharmacy 61.7; Estimated Glomerular Filt Rate 60; Glucose Random 105 mg/dL (60-115); Potassium 3.4 mmol/L (3.3-5.1); Sodium 142 mmol/L (135-145); Total Protein 7.3 g/dL (6.5-8.0)
[2021-05-16 14:41] LABS: Troponin-I High Sensitivity 15.1 ng/L (<3.5-35.0)
[2021-05-16 18:40] LABS: Troponin-I High Sensitivity 11.7 ng/L (<3.5-35.0)
== END 2021-05-16 21:05 | disposition home or self-care (01) ==
PROVIDERS: Emergency Provider Emergency Medicine Emergency Medical Services; PCP Internal Medicine
DX: R07.9 Chest pain, unspecified (principal); I10 Essential (primary) hypertension; E78.5 Hyperlipidemia, unspecified; Z79.02 Long term (current) use of antithrombotics/antiplatelets; Z79.899 Other long term (current) drug therapy
CPT/HCPCS: 36415; 71045; 80053; 84484; 85025; 93005; 96361; 96374; 96375; 99212; 99284

== ENCOUNTER 2021-05-18 15:10 | Outpatient (REF) | payer MEDICARE, MEDICAID, SELFPAY ==
[2021-05-18 16:27] LABS: Prothrombin Time 11.8 SEC (9.9-13.0)
== END 2021-05-18 15:11 | disposition home or self-care (01) ==
LOC: HO.LAB 15:10
PROVIDERS: PCP Internal Medicine; Visit Provider Nurse Practitioner Family
DX: Z01.810 Encounter for preprocedural cardiovascular examination (principal); R07.9 Chest pain, unspecified
CPT/HCPCS: 36415; 85610

== ENCOUNTER → 2021-05-23 10:14 | Outpatient (REF) | payer MEDICARE, MEDICAID, SELFPAY ==
--- NOTE | 2021-05-23 10:18 | CA_ITS ---
Transthoracic Echocardiogram Patient (Last, First, Middle): Zac Lainez, Gender: Male Date of : 1955 Age: 65 Procedure Date: 05/23/2021 Procedure Type: Transthoracic Echocardiogram Location: OP Height: 162.56 cm Weight: 90.72 kg BSA: 1.96 m2 Heart Rate: bpm BP: 147 / 84 mmHg [employer] Operator: ISABELA Referring MD: Rica Pineda PARAPROFESSIONAL INTERPRETERKody Symptoms: I35.0 - Nonrheumatic aortic (valve) stenosis Study Quality: Fair ECG Rhythm: Sinus Conclusions: - The left ventricular systolic function is normal. The calculated ejection fraction is 58% by biplane method. - There is mild to moderate aortic valve stenosis. Findings Left Ventricle Normal left ventricular cavity size. There is mildly increased left ventricular wall thickness. The left ventricular systolic function is normal. The calculated ejection fraction is 58% by biplane method. There is no evidence of regional wall motion abnormalities. Diastolic function is normal for age. Right Ventricle Normal right ventricular cavity size and systolic function. Atria Both atria are normal in size. Aortic Valve There is moderate calcification of the aortic valve. There is mild to moderate aortic valve stenosis. The peak aortic velocity is 2.77 m/s with a calculated peak gradient of 31 mmHg. The mean gradient is 17 mmHg. The aortic valve area is 1.11 cm2. There is trace (trivial) aortic valve regurgitation. Mitral Valve There is mild anterior mitral leaflet thickening. There is mild mitral annular calcification. There is no mitral valve regurgitation. There is no mitral valve stenosis. Pulmonic Valve The pulmonic valve was not well visualized. Tricuspid Valve Normal tricuspid valve structure. There is trace tricuspid valve regurgitation. The pulmonary artery systolic pressure is normal. Great Vessels The asc aorta and aortic arch are normal in size. Venous The inferior vena cava is normal in size and collapses greater than 50% with inspiration. Pericardium/Pleural There is no evidence of pericardial effusion. Prior Study Comparison No significant change compared to prior study dated: 07/29/2020. Measurements 2D Linear Measurements IVSd: 1.29 0.6-0.9/0.6-1.0 cm LVIDd: 5.03 3.9-5.3/4.2-5.9 cm LVIDd Index: 2.57 2.4-3.2/2.2-3.1 cm/m2 LVIDs: 3.66 2.0-3.6 cm LVPWd: 1.27 0.7-1.1 cm Ao Root: 3.50 2.1-3.5 cm LA Diam: 3.40 2.7-3.8/3.0-4.0 cm LAIDs Index: 1.73 1.5-2.3 cm/m2 LV Mass: 322.38 67-162/88-224 g LV Mass Index: 164.48 43-95/49-115 g/m2 LVOT Diam: 2.00 3.0+(-)1.3 cm 2D Systolic Function EF 4C: 56.40 >55% EF 2C: 56.50 >55% EF BiP: 57.60 >55% Mitral Valve MV Pk E: 0.72 MV PK A: 0.94 MV Decel Time: 275.00 E/A: 0.80 E'Lateral: 8.59 E'Medial: 7.29 E/E' Med: 9.90 E/E' Lat: 8.40 PHT: 80.00 MVA PHT: 2.75 Decel [place]: 2.63 Aortic Valve AoV Pk Alvin: 2.77 AoV Mn Alvin: 1.93 AoV VTI: 0.55 AoV Pk Grad: 31.00 Aov Mn Grad: 17.00 JIMBO Cont.VTI: 1.11 LVOT LVOT Pk Alvin: 1.06 LVOT Mn Alvin: 0.67 LVOT VTI: 0.19 LVOT Pk Grad: 4.00 LVOT Mn Grad: 2.00 LVOT Diam: 2.00 LVOT Area: 3.14 Diastolic Function MV Pk E: 0.72 MV Pk A: 0.94 E/A: 0.80 E'Medial: 7.29 E/E' Med: 9.90 E' Laterial: 8.59 E/E' Lat: 8.40 Tricuspid Valve TR Pk Alvin: 2.05 TR Pk Grad: 17.00 RA Press: 3.00 RVSP: 20.00 Great Vessels Aorta Ao Root-2D: 3.50 2.0-3.7 cm Ao Asc: 3.60 2.1-3.4 cm Ao Arch: 3.00 Updated in Other Vendor System with Status of Final Chente Deras MD electronically signed on 05/23/2021 1:26:48 PM with status of Final
== END ==
LOC: HO.CARD 10:14
PROVIDERS: PCP Internal Medicine; Visit Provider Nurse Practitioner Family
DX: I35.0 Nonrheumatic aortic (valve) stenosis (principal); I25.10 Atherosclerotic heart disease of native coronary artery without angina pectoris
CPT/HCPCS: 93306

== ENCOUNTER → 2021-06-12 09:44 | Outpatient (BNVA) | payer MEDICARE, MEDICAID, SELFPAY | PROVIDERS: PCP Internal Medicine; Referring Provider Internal Medicine; Visit Provider Internal Medicine Cardiovascular Disease | DX: I25.118 Atherosclerotic heart disease of native coronary artery with other forms of angina pectoris (principal); I35.0 Nonrheumatic aortic (valve) stenosis; Z79.899 Other long term (current) drug therapy | CPT/HCPCS: 99212 ==

== ENCOUNTER 2021-06-29 10:51 | Outpatient (REF) | payer MEDICARE, MEDICAID, SELFPAY | END 2021-06-29 10:52 | disposition home or self-care (01) | LOC: HO.LAB 10:51 | PROVIDERS: PCP Internal Medicine; Visit Provider Internal Medicine | DX: Z20.822 Contact with and (suspected) exposure to COVID-19 (principal) | CPT/HCPCS: C9803; U0003; U0005 ==

== ENCOUNTER 2021-06-30 08:53 | Outpatient (REF) | payer MEDICARE, MEDICAID, SELFPAY ==
[2021-06-30 11:19] LABS: Alanine Aminotransferase 19 U/L (0-40); Aspartate Amino Transferase 22 U/L (5-37); Cholesterol 180 mg/dL; HDL Cholesterol 37 mg/dL; LDL Cholesterol Calculated 73 mg/dl; Triglycerides 351 mg/dL
== END 2021-06-30 08:54 | disposition home or self-care (01) ==
LOC: HO.LAB 08:53
PROVIDERS: PCP Internal Medicine; Visit Provider Nurse Practitioner Family
DX: E78.5 Hyperlipidemia, unspecified (principal)
CPT/HCPCS: 36415; 80061; 84450; 84460

== ENCOUNTER 2021-07-18 14:52 | Outpatient (REF) | payer MEDICARE, MEDICAID, SELFPAY | END 2021-07-18 14:53 | disposition home or self-care (01) | LOC: HO.LAB 14:52 | PROVIDERS: PCP Internal Medicine; Visit Provider Internal Medicine | DX: Z20.822 Contact with and (suspected) exposure to COVID-19 (principal) | CPT/HCPCS: C9803; U0003; U0005 ==

== ENCOUNTER → 2021-08-10 10:22 | Outpatient (BNVA) | payer MEDICARE, MEDICAID, SELFPAY | PROVIDERS: PCP Internal Medicine; Referring Provider Internal Medicine; Visit Provider Internal Medicine Cardiovascular Disease | DX: I25.10 Atherosclerotic heart disease of native coronary artery without angina pectoris (principal); I35.0 Nonrheumatic aortic (valve) stenosis | CPT/HCPCS: 99212 ==

== ENCOUNTER 2021-08-25 10:30 | Outpatient (REF) | payer MEDICARE, MEDICAID, SELFPAY ==
[2021-08-25 11:33] LABS: Anion Gap 14 (12-20); Blood Urea Nitrogen 19 mg/dL (9-16); Calcium 9.6 mg/dL (8.4-10.2); Carbon Dioxide 29 mmol/L (22-29); Chloride 105 mmol/L (96-108); Estimated Glomerular Filt Rate 54; Potassium 3.3 mmol/L (3.3-5.1); Sodium 145 mmol/L (135-145)
[2021-08-25 12:48] LABS: Creatinine Urine 210.42 mg/dL; Protein/Creatinine Ratio, Ur 0.11 (<0.2); Total Protein Urine Random 23 mg/dL (<12)
== END 2021-08-25 10:31 | disposition home or self-care (01) ==
LOC: HO.LAB 10:30
PROVIDERS: PCP Internal Medicine; Visit Provider Internal Medicine Nephrology
DX: R80.9 Proteinuria, unspecified (principal); E83.59 Other disorders of calcium metabolism; N29 Other disorders of kidney and ureter in diseases classified elsewhere; N20.0 Calculus of kidney; I10 Essential (primary) hypertension
CPT/HCPCS: 36415; 80051; 82310; 82565; 84156; 84520

== ENCOUNTER → 2021-09-07 09:11 | Outpatient (BNVA) | payer MEDICARE, MEDICAID, SELFPAY | PROVIDERS: PCP Internal Medicine; Referring Provider Internal Medicine; Visit Provider Internal Medicine Cardiovascular Disease | DX: I25.10 Atherosclerotic heart disease of native coronary artery without angina pectoris (principal); I35.0 Nonrheumatic aortic (valve) stenosis | CPT/HCPCS: 99212 ==

== ENCOUNTER → 2021-10-23 14:54 | Outpatient (BNVA) | payer MEDICARE, MEDICAID, SELFPAY | PROVIDERS: PCP Internal Medicine; Referring Provider Internal Medicine; Visit Provider Nurse Practitioner Family | DX: I25.10 Atherosclerotic heart disease of native coronary artery without angina pectoris (principal); I10 Essential (primary) hypertension; M19.011 Primary osteoarthritis, right shoulder; M19.012 Primary osteoarthritis, left shoulder; R07.9 Chest pain, unspecified | CPT/HCPCS: 99212 ==

== ENCOUNTER 2021-12-06 08:41 | Outpatient (REF) | payer MEDICARE, MEDICAID, SELFPAY ==
[2021-12-06 09:54] LABS: Cholesterol 165 mg/dL; HDL Cholesterol 37 mg/dL; LDL Cholesterol Calculated 80 mg/dl; Triglycerides 241 mg/dL
[2021-12-08 13:47] LABS: CRP High Sensitivity 4.4 mg/L
== END 2021-12-06 08:42 | disposition home or self-care (01) ==
LOC: HO.LAB 08:41
PROVIDERS: PCP Internal Medicine; Visit Provider Internal Medicine Cardiovascular Disease
DX: I25.10 Atherosclerotic heart disease of native coronary artery without angina pectoris (principal); E78.5 Hyperlipidemia, unspecified
CPT/HCPCS: 36415; 80061; 86141

== ENCOUNTER → 2021-12-14 14:36 | Outpatient (BNVA) | payer MEDICARE, MEDICAID, SELFPAY | PROVIDERS: PCP Internal Medicine; Referring Provider Internal Medicine; Visit Provider Nurse Practitioner Family | DX: R07.9 Chest pain, unspecified (principal); I25.10 Atherosclerotic heart disease of native coronary artery without angina pectoris; I10 Essential (primary) hypertension; M19.011 Primary osteoarthritis, right shoulder; M19.012 Primary osteoarthritis, left shoulder; Z79.82 Long term (current) use of aspirin; Z79.899 Other long term (current) drug therapy | CPT/HCPCS: Q3014 ==

== ENCOUNTER 2022-02-20 09:40 | Outpatient (REF) | payer MEDICARE, MEDICAID, SELFPAY ==
[2022-02-20 10:47] LABS: Anion Gap 13 (12-20); Blood Urea Nitrogen 15 mg/dL (9-16); Calcium 9.6 mg/dL (8.4-10.2); Carbon Dioxide 25 mmol/L (22-29); Chloride 108 mmol/L (96-108); Estimated Glomerular Filt Rate > 60; Potassium 3.9 mmol/L (3.3-5.1); Sodium 142 mmol/L (135-145)
== END 2022-02-20 09:41 | disposition home or self-care (01) ==
LOC: HO.LAB 09:40
PROVIDERS: PCP Internal Medicine; Visit Provider Internal Medicine Nephrology
DX: I10 Essential (primary) hypertension (principal); N20.0 Calculus of kidney
CPT/HCPCS: 36415; 80051; 82310; 82565; 84520

== ENCOUNTER 2022-02-28 08:58 | Outpatient (REF) | payer MEDICARE, MEDICAID, SELFPAY ==
[2022-02-28 10:01] LABS: Anion Gap 12 (12-20); Blood Urea Nitrogen 17 mg/dL (9-16); Calcium 9.5 mg/dL (8.4-10.2); Carbon Dioxide 26 mmol/L (22-29); Chloride 110 mmol/L (96-108); Estimated Glomerular Filt Rate > 60; Glucose Random 124 mg/dL (60-115); Potassium 3.5 mmol/L (3.3-5.1); Sodium 144 mmol/L (135-145)
[2022-02-28 10:06] LABS: Cholesterol 127 mg/dL; HDL Cholesterol 39 mg/dL; LDL Cholesterol Calculated 60 mg/dl; Triglycerides 144 mg/dL
[2022-02-28 10:34] LABS: Prostate Specific Antigen 4.31 ng/mL (<0.05-4.0)
[2022-03-02 14:31] LABS: CRP High Sensitivity 2.4 mg/L
== END 2022-02-28 08:59 | disposition home or self-care (01) ==
LOC: HO.LAB 08:58
PROVIDERS: Nurse Practitioner Family; Urology; PCP Internal Medicine; Visit Provider Internal Medicine Cardiovascular Disease
DX: Z12.5 Encounter for screening for malignant neoplasm of prostate (principal); I25.10 Atherosclerotic heart disease of native coronary artery without angina pectoris; N13.8 Other obstructive and reflux uropathy; N40.1 Benign prostatic hyperplasia with lower urinary tract symptoms; E78.5 Hyperlipidemia, unspecified
CPT/HCPCS: 36415; 80048; 80061; 84153; 86141

== ENCOUNTER → 2022-03-15 10:32 | Outpatient (BNVA) | payer MEDICARE, MEDICAID, SELFPAY | PROVIDERS: PCP Internal Medicine; Referring Provider Internal Medicine; Visit Provider Internal Medicine Cardiovascular Disease | DX: I25.10 Atherosclerotic heart disease of native coronary artery without angina pectoris (principal); I35.0 Nonrheumatic aortic (valve) stenosis | CPT/HCPCS: 99212 ==

== ENCOUNTER → 2022-09-11 09:51 | Outpatient (BNVA) | payer MEDICARE, MEDICAID, SELFPAY | PROVIDERS: PCP Internal Medicine; Referring Provider Internal Medicine; Visit Provider Internal Medicine Cardiovascular Disease | DX: I35.0 Nonrheumatic aortic (valve) stenosis (principal); I25.10 Atherosclerotic heart disease of native coronary artery without angina pectoris | CPT/HCPCS: 93005; 99212 ==

== ENCOUNTER → 2022-09-19 10:20 | Outpatient (REF) | payer MEDICARE, MEDICAID, SELFPAY ==
--- NOTE | 2022-09-19 10:25 | CA_ITS ---
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 Normal LV systolic function with impaired relaxation filling pattern 2. Moderate aortic stenosis 3. Mildly dilated ascending aorta at 3.8 cm 4. No gross pericardial effusion Findings Left Ventricle Normal left ventricular size, thickness, and systolic function. The visually estimated ejection fraction is between 55-60%. Spectral Doppler is indicative of an impaired relaxation filling pattern. Wall Motion Rest Echo Findings The basal inferior segment is akinetic. All other scored wall segments showed normal motion. Right Ventricle Normal right ventricular cavity size and systolic function. Atria The left atrium is normal in size. Interatrial shunt cannot be excluded. The right atrium is normal in size. Aortic Valve There is moderate calcification of the aortic valve. There is moderate aortic valve stenosis. The peak aortic gradient is 36 mmHg.The mean gradient is 18 mmHg. The aortic valve area is 1.13 cm2. There is no aortic valve regurgitation. Mitral Valve There is mild anterior and posterior mitral leaflet thickening. There is mild mitral annular calcification. There is trace mitral valve regurgitation. There is no mitral valve stenosis. Pulmonic Valve The pulmonic valve was not well visualized. Tricuspid Valve Likely normal tricuspid valve structure and function. Tricuspid regurgitation envelope is inadequate for calculation of right ventricular systolic pressure. Normal right atrial pressure. Great Vessels The pulmonary artery was not well visualized. There is mild dilatation of the ascending aorta measuring 3.80 cm. Venous The inferior vena cava is normal in size and collapses greater than 50% with inspiration. Pericardium/Pleural There is no evidence of pericardial effusion. Prior Study Comparison Changes noted compared to prior study dated: 05/23/2021. aortic stenosis is moderate in severity. Measurements 2D Linear Measurements IVSd: 1.29 0.6-0.9/0.6-1.0 cm LVIDd: 5.63 3.9-5.3/4.2-5.9 cm LVIDd Index: 2.87 2.4-3.2/2.2-3.1 cm/m2 LVIDs: 3.43 2.0-3.6 cm LVPWd: 0.96 0.7-1.1 cm LA Diam: 3.40 2.7-3.8/3.0-4.0 cm LAIDs Index: 1.73 1.5-2.3 cm/m2 LV Mass: 322.51 67-162/88-224 g LV Mass Index: 164.55 43-95/49-115 g/m2 LVOT Diam: 2.10 3.0+(-)1.3 cm 2D Systolic Function EF 4C: 58.60 >55% EF 2C: 63.00 >55% EF BiP: 59.60 >55% Mitral Valve MV VTI: 0.33 MV Pk Alvin: 1.02 MV Mn Alvin: 0.64 MV Pk Grad: 4.00 MV Mn Grad: 2.00 MV Pk E: 0.84 MV PK A: 0.63 MV Decel Time: 198.00 E/A: 1.30 E'Lateral: 9.57 E'Medial: 9.25 E/E' Med: 9.10 E/E' Lat: 8.80 PHT: 64.00 MVA PHT: 3.44 MVA Continuity: 2.05 Decel [place]: 3.71 Aortic Valve AoV Pk Alvin: 3.01 AoV Mn Alvin: 1.94 AoV VTI: 0.60 AoV Pk Grad: 36.00 Aov Mn Grad: 18.00 JIMBO Cont.VTI: 1.13 LVOT LVOT Pk Alvin: 0.93 LVOT Mn Alvin: 0.66 LVOT VTI: 0.20 LVOT Pk Grad: 3.00 LVOT Mn Grad: 2.00 LVOT Diam: 2.10 LVOT Area: 3.46 Diastolic Function MV Pk E: 0.84 MV Pk A: 0.63 E/A: 1.30 E'Medial: 9.25 E/E' Med: 9.10 E' Laterial: 9.57 E/E' Lat: 8.80 Right Ventricle TAPSE (mm): 22.30 TVS' Alvin: 13.90 Tricuspid Valve RA Press: 3.00 Great Vessels Aorta Sinus of Valsalva: 3.94 2.0-3.[address] [place]: 2.61 1.7-3.4 cm Ao Asc: 3.80 2.1-3.4 cm Ao Arch: 3.00 Updated in Other Vendor System with Status of Final Yaya Blanchard MD electronically signed on 09/19/2022 4:18:35 PM with status of Final
== END ==
LOC: HO.CARD 10:20
PROVIDERS: PCP Internal Medicine; Visit Provider Internal Medicine Cardiovascular Disease
DX: I35.0 Nonrheumatic aortic (valve) stenosis (principal)
CPT/HCPCS: 93306

== ENCOUNTER → 2022-09-20 10:53 | Outpatient (BNVA) | payer MEDICARE, MEDICAID, SELFPAY | PROVIDERS: PCP Internal Medicine; Referring Provider Internal Medicine; Visit Provider Internal Medicine Cardiovascular Disease | DX: I35.0 Nonrheumatic aortic (valve) stenosis (principal) | CPT/HCPCS: 99212 ==

== ENCOUNTER 2022-10-18 16:10 | Emergency (ER) | payer MEDICARE, MEDICAID, SELFPAY ==
--- NOTE | ~2022-10-18 | CT_ITS ---
EXAMINATION: CT ABDOMEN AND PELVIS WITH CONTRAST CLINICAL INFORMATION: Diffuse abdominal pain, diarrhea. COMPARISON: CT abdomen and pelvis 10/19/2015 TECHNIQUE: Multidetector volumetric images were obtained from the superior aspect of the liver through the pubic symphysis following administration 85 mL of Omnipaque 350 intravenous contrast. Sagittal and coronal reformatted images were obtained on the technologist's workstation. Oral contrast: No This CT examination was performed using dose optimization techniques as appropriate, variously including the following: *Automated exposure control *Adjustment of mA and/or kV according to patient size (this includes techniques or standardized protocols for targeted exams where dose is matched to indication/reason for exam; i.e. extremities or head) *Use of iterative reconstruction technique DLP: 632 mGy-cm FINDINGS: LUNG BASES: There is surgical staple line left lower lobe. No nodule seen in the left costophrenic sulcus. No pulmonary nodules seen. Heart size is normal. There is diaphragmatic herniation of fat along the aortic hiatus. LIVER, GALLBLADDER, AND BILIARY TREE: The liver is normal in size, shape, and attenuation. No focal hepatic lesion or biliary ductal dilatation is present. The gallbladder is unremarkable with no evidence of radiopaque gallstones, gallbladder wall thickening, or obvious pericholecystic inflammatory changes. PANCREAS: Unremarkable. SPLEEN: Unremarkable. ADRENAL GLANDS: Unremarkable. KIDNEYS AND URETERS: The kidneys are normal in size, shape, and attenuation. No hydronephrosis, hydroureter, or calculi seen. No perinephric stranding. There is a nonenhancing 4.2 cm cyst upper pole and 2 cm cyst lower pole left kidney. A 1.2 cm upper and 9 mm lower pole right renal cysts are noted. BLADDER: Unremarkable. GASTROINTESTINAL TRACT: There is scattered stool and gas seen throughout the colon without distention. The small bowel loops are normal caliber. Appendix is normal caliber. The stomach is nondistended No inflammatory process, free air or free fluid seen. Appendix ABDOMINAL WALL: There is small lacunar hernia containing fat. LYMPH NODES: Normal. VASCULAR: The abdominal aorta is normal caliber. There is numerous collateral vessels along the lesser curvature suspicious for portal venous hypertension. Best visualized on axial image 19/3 The portal vein appears patent. PELVIC VISCERA: The prostate gland is mildly enlarged with central gland calcification. Periprostatic fat planes are preserved. No abnormal size pelvic or inguinal lymph nodes seen. OSSEOUS STRUCTURES: No aggressive lytic or sclerotic process seen. There is vacuum disc phenomena L4-L5 disc level. There is superior endplate deformity L2 vertebra. There is likely meningioma T11 vertebra. CT/CT abdomen pelvis w IV con IMPRESSION: 1. No acute intra-abdominal process seen. 2. No acute intra-abdominal process seen. 3. Bilateral renal cysts. No radiopaque urolith or hydroureteronephrosis. 4. Suspect portal venous hypertension with venous collaterals along the lesser curvature. Mild constipation. Normal appendix. Fleischner guidelines were followed.
--- NOTE | 2022-10-18 16:28 | ED_ITS ---
HPI - Abdominal Pain General Chief Complaint: Abdominal Pain Stated Complaint: ABD PAIN WITH N/V/D SINCE 4AM PER EMS Time Seen by Provider: 10/18/22 16:26 Source: patient Mode of arrival: ambulatory Limitations: no limitations History of Present Illness HPI narrative: 67-year-old male history of hyperlipidemia coronary artery disease aortic stenosis hypertension and BPH presenting to the emergency department with nausea, vomiting, diarrhea, 6/10 diffuse abdominal pain, fatigue, malaise, inability to keep down p.o. that started at 4 in the morning suddenly. Patient tells me he feels awful. Tells me has not been able to eat or drink anything. Also reporting vague complaints of weakness. Denies any recent sick contacts. Denies chest pain, shortness of breath, headache, vision changes, dizziness, hematuria, urinary changes, constipation, diarrhea. Related Data Home Medications Medication Instructions Recorded Confirmed albuterol sulfate 90 mcg/actuation 2 puff inhalation Q4-6H PRN 08/30/20 09/20/22 aerosol inhaler Wheezing dexamethasone 2 mg tablet 6 mg PO QAM 08/30/20 09/20/22 dexlansoprazole 60 mg 60 mg PO DAILY 08/30/20 09/20/22 capsule,biphase delayed release fluticasone furoate 100 inhalation 08/30/20 09/20/22 mcg-vilanterol 25 mcg/dose inhalation powder fluticasone propionate 50 2 spray intranasal DAILY 08/30/20 09/20/22 mcg/actuation nasal spray,suspension lorazepam 0.5 mg tablet 0.5 mg PO DAILY PRN anxiety 08/30/20 09/20/22 valsartan 160 mg tablet 160 mg PO DAILY 08/30/20 09/20/22 cyclobenzaprine 10 mg tablet 10 mg PO BID PRN Pain 01/24/21 09/20/22 latanoprost 0.005 % eye drops 1 drp ophthalmic (eye) DAILY 01/24/21 09/20/22 diclofenac sodium 75 mg 75 mg PO BID 04/14/21 09/20/22 tablet,delayed release chlorthalidone 25 mg tablet 25 mg PO DAILY 05/16/21 09/20/22 magnesium oxide 400 mg (241.3 mg 0 mg PO 08/10/21 09/20/22 magnesium) tablet potassium chloride 10 mEq meq PO BID 08/10/21 09/20/22 capsule,extended release Previous Rx's Medication Instructions Recorded meloxicam 15 mg tablet (Mobic) 15 mg PO DAILY 30 days #30 tabs 11/21/20 fenofibrate 160 mg tablet 160 mg PO DAILY #90 tabs 11/27/21 atorvastatin 80 mg tablet 80 mg PO BEDTIME 90 days #90 tabs 04/25/22 ezetimibe 10 mg tablet (Zetia) 10 mg PO DAILY #90 tabs 04/25/22 amlodipine 5 mg tablet 5 mg PO DAILY #90 tabs 10/17/22 aspirin 81 mg tablet,delayed 81 mg PO DAILY #90 tabs 10/17/22 release loperamide 2 mg capsule 2 mg PO Q6H PRN loose stool #30 10/18/22 (Anti-Diarrheal (loperamide)) caps ondansetron 4 mg disintegrating 4 mg PO Q6H PRN nausea and 10/18/22 tablet vomiting #14 tabs Allergies Allergy/AdvReac Type Severity Reaction Status Date / Time No Known Allergies Allergy Verified 12/14/21 14:39 [No Known Allergies*] Review of Systems Review of Systems Constitutional : No Weight loss, No Fever, No Chills, No Fatigue, No Malaise ENT/Mouth : No sore throat, No Rhinorrhea Eyes: No Eye Pain, No Swelling, No Redness Cardiovascular : No Chest Pain, No SOB, No Dyspnea on Exertion, No Orthopnea, No Edema, No Palpitations Respiratory : No Cough, No Sputum, No Wheezing Gastrointestinal : + Nausea, + Vomiting, + Diarrhea, No Constipation, + abdominal Pain, No Hematochezia, No Melena Genitourinary : No Dysuria, No Urinary Frequency, No Hematuria, Musculoskeletal : No joint pain, No Myalgias, No Joint Swelling Skin : No Skin Lesions, No rash Neuro : No Weakness, No Numbness, No Dizziness, No Headache Psych : No Anxiety/Panic, No Depression All other systems reviewed and are negative Yes all other systems are reviewed and are negative [facility] Past Medical History Attestation statement: The following information was validated with the patient. Source: old records reviewed and nursing notes reviewed Medical History Acid reflux Aortic stenosis CAD (coronary artery disease) HTN (hypertension) Hyperlipidemia Surgical History H/O colonoscopy History of esophagogastroduodenoscopy (EGD) History of lung surgery Hx of cystoscopy Hx of sigmoidoscopy Family History Family History Father Cardiac arrest Hyperlipemia Mother No problems noted. Brother Cardiac arrest Social History Social History Household Members: Spouse Alcohol intake: unknown Patient Tobacco Use Status: Never used Tobacco Smoked in Last 30 Days: No Use of substances other than those prescribed or required for medical reasons: Unknown Advance Directives: No Advance Directives Information Provided: No Physical Exam ED Vital Signs: Vital Signs - 24 hr 10/18/22 16:39 Temperature 98.6 F Pulse Rate 100 Respiratory Rate 18 Blood Pressure 151/103 H Pulse Oximetry 96 Oxygen Delivery Method Room Air BMI result Body Mass Index 34.3 vss Appearance: Alert.? Oriented X3.? No acute distress.? Head: Normocephalic, atraumatic, no step-offs or deformities Eyes: Pupils equal, round and reactive to light.? ENT: Pharynx normal.? Neck: Normal inspection.? Neck supple.? CVS: Normal heart rate and rhythm.? Pulses normal.? Respiratory: No respiratory distress.? Breath sounds normal.? Abdomen: Soft and nontender.? Skin: Skin warm and dry.? Normal skin color.? Normal skin turgor.? Extremities: No lower extremity edema.? No calf ttp. 5/5 strength to bilateral upper and lower extremities Neuro: Oriented X 3.? No motor deficit.? No sensory deficit. CN 2-12 intact Course Reevaluation(s) Reevaluation #1: Patient's CBC appears to be around patient's baseline. Chemistry initially showing elevated BUN likely secondary to dehydration, magnesium was noted to be low, I gave IV magnesium and hydration, magnesium improved to 2.1. Lipase within normal limits. Patient's urine clean without infection. COVID and influenza negative. CT of the abdomen and pelvis with no acute intra-abdominal process. Bilateral renal cysts noted. Suspected portal vein hypertension with venous collaterals along the lesser curvature. Mild constipation noted. Normal appendix. Will attach CT scan results to patient's discharge that he can discuss with PCP. Time: 22:09 Reevaluation #2: Patient's blood pressure improved. Patient is not having headache, vision changes, dizziness, he is ambulating with a steady gait normal coordination. Patient tells me he is feeling so much better. Has not had any episodes of nausea, vomiting or diarrhea while in the department. He tells me he feels better, tolerating p.o.. Upon repeat exam patient is not tender on exam. At this time patient will be discharged home. Educated patient on diagnosis and treatment plan, answered all question, patient verbalizes understanding. At this time patient will be discharged home, advised to return with new or wo rsening symptoms. Educated on worrisome signs and symptoms and when to return. At this time I feel comfortable discharge home. Time: 22:10 Medical Decision Making Medical Decision Making [facility] Narrative: 1630 67-year-old male presents with nausea, vomiting, diarrhea, diffuse abdominal pain, weakness that started at 04:00. Physical exam benign Likely viral nature vs colitis . No signs of acute abdomen, appendicitis, cholecystitis, pancreatitis. Unlikley UTI or cystitis . I do not suspect Clostridium difficile. Plan at this time basic labs, urine, hydration, revaluation. Will give zofran. Lab Data Result Diagrams: 10/18/22 16:50 10/18/22 16:50 Labs: Lab Results 10/18/22 10/18/22 10/18/22 Range/Units 16:50 16:50 16:50 WBC 7.8 (4.8-10.8) X10*3/uL RBC 5.02 (4.60-5.80) X10*6/uL Hgb 13.2 L (14.0-18.0) g/dl Hct 39.5 L (42.0-52.0) % MCV 78.7 L (80.0-98.0) fL MCH 26.3 L (27.0-33.0) pg MCHC 33.4 (31.0-36.0) g/dl RDW 14.3 (11.0-16.0) % Plt Count 244 (160-400) X10*3/uL MPV 9.2 L (9.4-12.4) fL Immature Gran % (Auto) 0.1 (0.0-0.4) % Neut % (Auto) 82.9 H (45-73) % Lymph % (Auto) 9.0 L (20-40) % Hale % (Auto) 5.8 (2-11) % Eos % (Auto) 1.9 (0-4) % Baso % (Auto) 0.3 (0-2) % Lymph # (Auto) 0.7 L (1.2-4.9) X10*3/uL Hale # (Auto) 0.5 (0.1-1.2) X10*3/uL Eos # (Auto) 0.2 (0.0-0.4) X10*3/uL Baso # (Auto) 0.0 (0.0-0.2) X10*3/uL Abs Immat Gran (auto) 0.01 (0.00-0.03) X10*3/uL Absolute Neuts (auto) 6.4 (2.0-8.3) x10*3/uL Absolute Nucleated RBC 0.000 (0.0-0.012) X10*3/uL Nucleated RBC % (auto) 0.0 (0.0-0.2) /100WBC Sodium 145 (135-145) mmol/L Potassium 3.3 (3.3-5.1) mmol/L Chloride 108 (96-108) mmol/L Carbon Dioxide 28 (22-29) mmol/L Anion Gap 12 (12-20) BUN 25 H (9-16) mg/dL Creatinine 1.20 (0.5-1.4) mg/dL Estim Creat Clear Calc 60.6 Estimated GFR > 60 Random Glucose 126 H (60-115) mg/dL Calcium 9.4 (8.4-10.2) mg/dL Magnesium 1.4 L* (1.6-2.6) mg/dL Total Bilirubin 0.8 (0.0-1.0) mg/dL AST 22 (5-37) U/L ALT 23 (0-40) U/L Alkaline Phosphatase 65 D (39-117) U/L Total Protein 7.9 (6.5-8.0) g/dL Albumin 4.5 (3.5-5.0) g/dL Lipase 32 (8-78) U/L Urine Color Urine Appearance Urine pH (5.0-9.0) Ur Specific [place] (1.005-1.025) Urine Protein (Neg-Trace) mg/dL Urine Glucose (UA) (Negative) mg/dL Urine Ketones (Negative) mg/dL Urine Blood (Negative) Urine Nitrite (Negative) Ur Leukocyte Esterase (Negative) Urine RBC (0-2) /HPF Urine WBC (0-5) /HPF Ur Squamous Epith Cells (0-2) /HPF Urine Bacteria (None Seen) Hyaline Casts (0-2) /LPF COVID-19 ([place]) (Negative) COVID-19 Clin Com Influenza Type A ([place]) Negative (Negative) Influenza Type B ([place]) Negative (Negative) Influenza A & B Note See Note 10/18/22 10/18/22 10/18/22 Range/Units 16:50 19:10 19:45 WBC (4.8-10.8) X10*3/uL RBC (4.60-5.80) X10*6/uL Hgb (14.0-18.0) g/dl Hct (42.0-52.0) % MCV (80.0-98.0) fL MCH (27.0-33.0) pg MCHC (31.0-36.0) g/dl RDW (11.0-16.0) % Plt Count (160-400) X10*3/uL MPV (9.4-12.4) fL Immature Gran % (Auto) (0.0-0.4) % Neut % (Auto) (45-73) % Lymph % (Auto) (20-40) % Hale % (Auto) (2-11) % Eos % (Auto) (0-4) % Baso % (Auto) (0-2) % Lymph # (Auto) (1.2-4.9) X10*3/uL Hale # (Auto) (0.1-1.2) X10*3/uL Eos # (Auto) (0.0-0.4) X10*3/uL Baso # (Auto) (0.0-0.2) X10*3/uL Abs Immat Gran (auto) (0.00-0.03) X10*3/uL Absolute Neuts (auto) (2.0-8.3) x10*3/uL Absolute Nucleated RBC (0.0-0.012) X10*3/uL Nucleated RBC % (auto) (0.0-0.2) /100WBC Sodium (135-145) mmol/L Potassium (3.3-5.1) mmol/L Chloride (96-108) mmol/L Carbon Dioxide (22-29) mmol/L Anion Gap (12-20) BUN (9-16) mg/dL Creatinine (0.5-1.4) mg/dL Estim Creat Clear Calc Estimated GFR Random Glucose (60-115) mg/dL Calcium (8.4-10.2) mg/dL Magnesium 2.1 (1.6-2.6) mg/dL Total Bilirubin (0.0-1.0) mg/dL AST (5-37) U/L ALT (0-40) U/L Alkaline Phosphatase (39-117) U/L Total Protein (6.5-8.0) g/dL Albumin (3.5-5.0) g/dL Lipase (8-78) U/L Urine Color Yellow Urine Appearance Clear Urine pH 6.5 (5.0-9.0) Ur Specific [place] >= 1.030 H (1.005-1.025) Urine Protein 30 (1+) H (Neg-Trace) mg/dL Urine Glucose (UA) Negative (Negative) mg/dL Urine Ketones Negative (Negative) mg/dL Urine Blood Negative (Negative) Urine Nitrite Negative (Negative) Ur Leukocyte Esterase Negative (Negative) Urine RBC 0-2 (0-2) /HPF Urine WBC 0-5 (0-5) /HPF Ur Squamous Epith Cells 0-2 (0-2) /HPF Urine Bacteria None Seen (None Seen) Hyaline Casts 0-2 (0-2) /LPF COVID-19 ([place]) Negative (Negative) COVID-19 Clin Com See Note Influenza Type A ([place]) (Negative) Influenza Type B ([place]) (Negative) Influenza A & B Note Medications Administered Discontinued Medications Generic Name Dose Route Start Last Admin Trade Name Freq PRN Reason Stop Dose Admin Sodium Chloride 1,000 mls @ 999 mls/hr 10/18/22 16:30 10/18/22 17:50 Ns IV 12/29/22 17:30 Infused .Q1H1M KEELEY Infusion Magnesium Sulfate 2 gm in 50 mls @ 25 mls/hr 10/18/22 17:20 10/18/22 19:55 Magnesium Sulfate/H2o IV 10/18/22 19:19 Infused ONCE ONE Infusion Iohexol 100 ml 10/18/22 17:48 10/18/22 17:48 Iohexol 350 Mg/Ml 100 Ml Infus..Btl IV 10/18/22 17:49 85 ml ONCE ONE Administration Ondansetron HCl 4 mg 10/18/22 16:27 10/18/22 16:53 Ondansetron Hcl 4 Mg/2 Ml Vial IVPUSH 10/18/22 16:28 4 mg ONCE ONE Administration Critical Care Time Critical Care Time Critical Care Time: No Discharge Plan Discharge Clinical Impression: Nausea & vomiting, Abdominal pain, Acute diarrhea, Hypomagnesemia Patient Disposition: Home, Self-Care Additional Instructions: Take your medications as prescribed. If you were prescribed antibiotics today, it is important that you take your medication to their entirety, do not skip any doses, do not finish them early. Follow-up with your primary care provider this week. Return to the emergency department with new or worsening symptoms. Such as fevers, chills, chest pain, shortness of breath, nausea, vomiting, dizziness, headache, vision changes, lethargy In case of emergency call 911 You tested negative for flu and COVID. Your labs looked good and were reassuring. Your magnesium was low we gave you magnesium and improved. Please follow-up with your PCP for repeat labs. CT/CT abdomen pelvis w IV con IMPRESSION: 1.? No acute intra-abdominal process seen. ? 2.? No acute intra-abdominal process seen. 3.? Bilateral renal cysts. No radiopaque urolith or hydroureteronephrosis. 4.? Suspect portal venous hypertension with venous collaterals along the lesser curvature. Mild constipation. Normal appendix. Prescriptions: New loperamide [Anti-Diarrheal (loperamide)] 2 mg capsule 2 mg PO Q6H PRN (Reason: loose stool) Qty: 30 0RF ondansetron 4 mg tablet,disintegrating 4 mg PO Q6H PRN (Reason: nausea and vomiting) Qty: 14 0RF No Action meloxicam [Mobic] 15 mg tablet 15 mg PO DAILY 30 Days Qty: 30 6RF fenofibrate 160 mg tablet 160 mg PO DAILY Qty: 90 3RF ezetimibe [Zetia] 10 mg tablet 10 mg PO DAILY Qty: 90 1RF atorvastatin 80 mg tablet 80 mg PO BEDTIME 90 Days Qty: 90 1RF amlodipine 5 mg tablet 5 mg PO DAILY Qty: 90 3RF aspirin 81 mg tablet,delayed release (DR/EC) 81 mg PO DAILY Qty: 90 3RF diclofenac sodium 75 mg tablet,delayed release (DR/EC) 75 mg PO BID potassium chloride 10 mEq capsule, extended release PO BID magnesium oxide 400 mg (241.3 mg magnesium) tablet 0 mg PO chlorthalidone 25 mg tablet 25 mg PO DAILY Breo Ellipta 100-25 mcg/dose blister with device inhalation dexamethasone 2 mg tablet 6 mg PO QAM fluticasone propionate 50 mcg/actuation spray,suspension 2 spray intranasal DAILY albuterol sulfate 90 mcg/actuation HFA aerosol inhaler 2 puff inhalation Q4-6H PRN (Reason: Wheezing) lorazepam 0.5 mg tablet 0.5 mg PO DAILY PRN (Reason: anxiety) valsartan 160 mg tablet 160 mg PO DAILY Dexilant 60 mg capsule,biphase delayed releas 60 mg PO DAILY latanoprost 0.005 % drops 1 drp ophthalmic (eye) DAILY cyclobenzaprine 10 mg tablet 10 mg PO BID PRN (Reason: Pain) Referrals: Alvaro Guerra MD [Primary Care Provider] - 2 days Stand Alone Forms: Work/School Release
[2022-10-18 16:39] VITALS: BP 141/98; BP 151/103; PULSE 100; PULSE 105; RESP 18; TEMP 37; O2SAT 96; BMI 34.3
[2022-10-18] MEDS: ondansetron HCL 4 MG/2 ML VIAL IVPUSH (16:53)
[2022-10-18] MEDS: 0.9 % Sodium Chloride 1,000 ML 999 ML IV (16:53)
[2022-10-18 16:54] LABS: MANUAL DIFF FLAG NO
[2022-10-18 16:55] LABS: Basophils Percent Auto 0.3 % (0-2); Eosinophils Absolute Auto 0.2 X10*3/uL (0.0-0.4); Eosinophils Percent Auto 1.9 % (0-4); Hematocrit 39.5 % (42.0-52.0); Hemoglobin 13.2 g/dl (14.0-18.0); Imm Gran Abs Auto 0.01 X10*3/uL (0.00-0.03); Imm Gran Pct Auto 0.1 % (0.0-0.4); Lymphocytes Absolute Auto 0.7 X10*3/uL (1.2-4.9); Mean Corpuscular HGB Conc 33.4 g/dl (31.0-36.0); Mean Corpuscular Hemoglobin 26.3 pg (27.0-33.0); Mean Corpuscular Volume 78.7 fL (80.0-98.0); Mean Platelet Volume 9.2 fL (9.4-12.4); Monocytes Absolute Auto 0.5 X10*3/uL (0.1-1.2); Monocytes Percent Auto 5.8 % (2-11); Neutrophils Absolute Auto 6.4 x10*3/uL (2.0-8.3); Neutrophils Percent Auto 82.9 % (45-73); Platelet Count 244 X10*3/uL (160-400); Red Blood Count 5.02 X10*6/uL (4.60-5.80); Red Cell Distribution Width 14.3 % (11.0-16.0); White Blood Count 7.8 X10*3/uL (4.8-10.8)
[2022-10-18 17:19] LABS: Alanine Aminotransferase 23 U/L (0-40); Albumin Level 4.5 g/dL (3.5-5.0); Alkaline Phosphatase 65 U/L (39-117); Anion Gap 12 (12-20); Aspartate Amino Transferase 22 U/L (5-37); Bilirubin Total 0.8 mg/dL (0.0-1.0); Blood Urea Nitrogen 25 mg/dL (9-16); Calcium 9.4 mg/dL (8.4-10.2); Carbon Dioxide 28 mmol/L (22-29); Chloride 108 mmol/L (96-108); Creatinine Clr Calc Pharmacy 60.6; Estimated Glomerular Filt Rate > 60; Glucose Random 126 mg/dL (60-115); Lipase 32 U/L (8-78); Magnesium 1.4 mg/dL (1.6-2.6); Potassium 3.3 mmol/L (3.3-5.1); Sodium 145 mmol/L (135-145); Total Protein 7.9 g/dL (6.5-8.0)
[2022-10-18 17:21] LABS: COVID-19 Test Negative (Negative); IDNOW Serial# 16C4AD1C; IDNOW Serial# BCCEAD1C; Influenza A Negative (Negative); Influenza B2 Negative (Negative)
[2022-10-18] MEDS: iohexoL 350 MG/ML 100 ML INFUS..BTL IV (17:48)
[2022-10-18] MEDS: Magnesium Sulfate/H2O 2 GM/50 ML PIGGYBACK IV (18:10)
--- NOTE | 2022-10-18 18:33 | PC.NURSE ---
iv placed, labs drawn and sent. medicated per emar. ambulated to bathroom w steady gait, awaiting ct scan results.
[2022-10-18 19:29] LABS: Magnesium 2.1 mg/dL (1.6-2.6)
[2022-10-18 20:00] LABS: Appearance Urine Clear; Color Urine Yellow; Glucose Urine UA Negative (Negative); Leukocyte Esterase Urine Negative (Negative); Nitrite Urine Negative (Negative); PH 6.5 (5.0-9.0); Specific Gravity - Urine >= 1.030 (1.005-1.025); UMIC TRIGGER UACC YES; Urine Blood Negative (Negative); Urine Ketones Negative (Negative); Urine Protein 30 (1+) mg/dL (Neg-Trace)
[2022-10-18 20:03] LABS: Bacteria Urine None Seen (None Seen); Hyaline Casts Urine 0-2 /LPF (0-2); RBC Urine 0-2 /HPF (0-2); Squamous Epithelial Cell Urine 0-2 /HPF (0-2); WBC Urine 0-5 /HPF (0-5)
== END 2022-10-18 22:21 | disposition home or self-care (01) ==
PROVIDERS: Physician Assistant; Emergency Provider Emergency Medicine; PCP Internal Medicine
DX: R11.2 Nausea with vomiting, unspecified (principal); R10.9 Unspecified abdominal pain; R19.7 Diarrhea, unspecified; E83.42 Hypomagnesemia; Z20.822 Contact with and (suspected) exposure to COVID-19
CPT/HCPCS: 36415; 74177; 80053; 81001; 81003; 83690; 83735; 85025; 87502; 87635; 96361; 96365; 96375; 99284; J2405; J3475; Q9967

== ENCOUNTER → 2023-01-28 13:50 | Outpatient (BNVA) | payer MEDICARE, MEDICAID, SELFPAY | PROVIDERS: PCP Internal Medicine; Visit Provider Physician Assistant | DX: Z01.818 Encounter for other preprocedural examination (principal); D64.9 Anemia, unspecified; K21.9 Gastro-esophageal reflux disease without esophagitis | CPT/HCPCS: 99202 ==

== ENCOUNTER → 2023-08-27 07:46 | Outpatient (REF) | payer MEDICARE, MEDICAID, SELFPAY ==
--- NOTE | 2023-08-27 07:48 | CA_ITS ---
Transthoracic Echocardiogram Patient (Last, First, Middle): Zac Lainez, Gender: Male Date of : 1955 Age: 68 Procedure Date: 08/27/2023 Procedure Type: Transthoracic Echocardiogram Location: OP Height: 162.56 cm Weight: 90.72 kg BSA: 1.96 m2 Heart Rate: bpm BP: 128 / 86 mmHg Track Patrol: TO Referring MD: Yaya Blanchard MD Symptoms: I35.0 - Nonrheumatic aortic (valve) stenosis Study Quality: Technically Difficult/no IV access Conclusions: - 1. Normal LV ejection fraction of 55-60% with mild LVH with pseudonormal filling pattern 2. Mildly dilated left atrium 3. Moderate aortic stenosis 4. Normal RV systolic pressure 5. Mildly dilated ascending aorta 3.8 cm 6. No pericardial effusion Findings Left Ventricle Normal left ventricular size and systolic function. There is mildly increased left ventricular wall thickness. The visually estimated ejection fraction is between 55-60%. Spectral Doppler is indicative of a pseudonormal filling pattern. E/E prime ratio is between 8 and 15 consistent with indeterminate filling pressures. Right Ventricle Normal right ventricular cavity size and systolic function. Atria The left atrium is mildly dilated. Interatrial shunt cannot be excluded. The right atrium is likely dilated. Aortic Valve There is moderate calcification of the aortic valve. There is mild thickening of the aortic valve. There is moderate aortic valve stenosis. The peak aortic gradient is 37 mmHg.The mean gradient is 19 mmHg. There is trace (trivial) aortic valve regurgitation. Mitral Valve There is mild anterior and posterior mitral leaflet thickening. There is mild mitral annular calcification. There is mild mitral valve regurgitation. There is no mitral valve stenosis. Pulmonic Valve The pulmonic valve is likely normal. Tricuspid Valve There is mild tricuspid valve regurgitation. The right ventricular systolic pressure is 15 mmHg. Normal right atrial pressure. There is no evidence of pulmonary hypertension. Great Vessels The pulmonary artery was not well visualized. There is mild dilatation of the ascending aorta measuring 3.80 cm. Venous The inferior vena cava is normal in size and collapses greater than 50% with inspiration. Pericardium/Pleural There is no evidence of pericardial effusion. Prior Study Comparison No significant change compared to prior study dated: 09/19/2022. Measurements 2D Linear Measurements IVSd: 1.16 0.6-0.9/0.6-1.0 cm LVIDd: 5.32 3.9-5.3/4.2-5.9 cm LVIDd Index: 2.71 2.4-3.2/2.2-3.1 cm/m2 LVIDs: 3.43 2.0-3.6 cm LVPWd: 1.17 0.7-1.1 cm LV Mass: 309.01 67-162/88-224 g LV Mass Index: 157.66 43-95/49-115 g/m2 LVOT Diam: 2.10 3.0+(-)1.3 cm 2D Systolic Function EF 4C: 51.00 >55% EF 2C: 64.80 >55% EF BiP: 55.20 >55% Mitral Valve MV Pk E: 0.69 MV PK A: 0.56 MV Decel Time: 187.00 E/A: 1.20 E'Lateral: 8.27 E'Medial: 4.79 E/E' Med: 14.50 E/E' Lat: 8.40 PHT: 55.00 MVA PHT: 4.00 Decel [place]: 3.72 Aortic Valve AoV Pk Alvin: 3.05 AoV Mn Alvin: 2.06 AoV VTI: 0.69 AoV Pk Grad: 37.00 Aov Mn Grad: 19.00 JIMBO Cont.VTI: 1.04 LVOT LVOT Pk Alvin: 1.01 LVOT Mn Alvin: 0.65 LVOT VTI: 0.21 LVOT Pk Grad: 4.00 LVOT Mn Grad: 2.00 LVOT Diam: 2.10 LVOT Area: 3.46 Diastolic Function MV Pk E: 0.69 MV Pk A: 0.56 E/A: 1.20 E'Medial: 4.79 E/E' Med: 14.50 E' Laterial: 8.27 E/E' Lat: 8.40 Right Ventricle TAPSE (mm): 29.00 TVS' Alvin: 13.70 Tricuspid Valve TR Pk Alvin: 1.71 TR Pk Grad: 12.00 RA Press: 3.00 RVSP: 15.00 Great Vessels Aorta Sinus of Valsalva: 3.84 2.0-3.[address] [place]: 2.69 1.7-3.4 cm Ao Asc: 3.80 2.1-3.4 cm Updated in Other Vendor System with Status of Final Yaya Blanchard MD electronically signed on 08/27/2023 2:21:13 PM with status of Final
== END ==
LOC: HO.CARD 07:46
PROVIDERS: PCP Internal Medicine; Visit Provider Internal Medicine Cardiovascular Disease
DX: I35.0 Nonrheumatic aortic (valve) stenosis (principal)
CPT/HCPCS: 93306

== ENCOUNTER → 2023-08-27 07:48 | Outpatient (BNV) | payer MEDICARE, MEDICAID, SELFPAY | PROVIDERS: PCP Internal Medicine; Visit Provider Internal Medicine Cardiovascular Disease | DX: I35.0 Nonrheumatic aortic (valve) stenosis (principal) | CPT/HCPCS: 93306 ==

== ENCOUNTER 2023-09-03 10:42 | Outpatient (AMB) | payer MEDICARE, MEDICAID, SELFPAY ==
[2023-09-03 10:46] VITALS: BP 130/80; PULSE 64; BMI 35.6
--- NOTE | 2023-09-03 10:46 | MHC.OFFVIS ---
Intake Vital Signs 09/03/23 10:46 Height 5 ft 4 in Weight 207 lb 3.752 oz BMI 35.6 BP 130/80 Blood Pressure Location Lt brachial Position Sitting Pulse 64 Intake Visit Reasons: 1 yr f/up-pre op colonoscopy Intake Note: 1 year follow-up and pre-op colonscopy with ekg feeling good [facility] Att[facility] Required: No Allergies No Known Allergies [No Known Allergies*] Allergy (Verified 01/28/23 13:57) Medication List - Last Reconciled 09/03/23 by Yaya Blanchard MD albuterol sulfate 90 mcg/actuation 2 puffs inhalation Q4-6H PRN amlodipine 5 mg PO DAILY aspirin 81 mg PO DAILY atorvastatin 80 mg PO BEDTIME 90 days bisacodyl (Dulcolax (bisacodyl)) 10 mg (2 x 5 mg) PO ONCE 1 day chlorthalidone 25 mg PO DAILY cyclobenzaprine 10 mg PO BID PRN dexamethasone 6 mg PO QAM dexlansoprazole 60 mg PO DAILY diclofenac sodium 75 mg PO BID ezetimibe (Zetia) 10 mg PO DAILY fenofibrate 160 mg PO DAILY fluticasone furoate-vilanterol 100-25 mcg/dose 1 inh inhalation DAILY fluticasone propionate 50 mcg/actuation 2 sprays intranasal DAILY latanoprost 0.005% 1 drp ophthalmic (eye) DAILY magnesium oxide 400 mg PO DAILY meloxicam (Mobic) 15 mg PO DAILY 30 days polyethylene glycol 3350 (Miralax) 238 grams PO ONCE 1 day valsartan 160 mg PO DAILY HPI HPI Comments History of Present Illness Details Zac comes for follow-up. Patient denies any new cardiac symptoms. Plan to undergo colonoscopy in near future. Takes all his medications. Denies exertional chest pain or shortness of breath. Denies orthopnea, PND. Recent echocardiogram shows stable and moderate aortic stenosis. Denies any lightheadedness, syncope. No heart failure symptoms. Takes all his medications. No recent lipid panel. [facility] Medical History Anemia Acid reflux Aortic stenosis CAD (coronary artery disease) Hyperlipidemia HTN (hypertension) Surgical History History of lung surgery History of esophagogastroduodenoscopy (EGD) H/O colonoscopy Hx of sigmoidoscopy Hx of cystoscopy Family History Father Cardiac arrest Hyperlipemia Mother No problems noted. Brother Cardiac arrest Social History Household Members: Spouse Alcohol intake: unknown Patient Tobacco Use Status: Never used Tobacco Review of Systems Const Denies chills, Denies fatigue, Denies fever(s), Denies frequent falls, Denies weakness, Denies weight gain and Denies weight loss ENT Denies dizziness Card Denies chest pain, Denies leg edema, Denies lightheadedness, Denies palpitations, Denies dyspnea, Denies dyspnea on exertion, Denies orthopnea and Denies other (loss of consciousness) Resp Denies cough, Denies dyspnea and Denies dyspnea on exertion GI Denies hematochezia and Denies change in stool character Musc Denies abnormal gait, Denies muscle weakness, Denies numbness, Denies radiating pain into limb and Denies tingling Neuro Denies abnormal gait, Denies dizziness, Denies frequent falls, Denies numbness, Denies tingling and Denies weakness Endo Denies fatigue and Denies palpitations Physical Exam Vital Signs: Last Vital Signs Pulse 64 09/03/23 10:46 BP 130/80 09/03/23 10:46 BMI result Body Mass Index 35.6 Const General: cooperative, comfortable and no acute distress Orientation/consciousness: patient oriented x3 Neck Neck: Yes normal visual inspection and Yes no JVD Carotids: normal carotid upstroke Resp Effort & Inspection: normal respiratory effort Auscultation: clear to auscultation bilaterally, no crackles, no rales, no rhonchi and no wheezes Cardio Jugular venous distension: no JVD Rate: regular rate Rhythm: regular rhythm Heart sounds: S1 normal heart sound present, S2 normal heart sound present, no gallops, Murmur heart sound present systolic mid, decrescendo and crescendo and no rubs Peripheral pulses: Peripheral pulses 2+ throughout GI Inspection: Yes normal to inspection Neuro General: patient oriented x3 Extrem General: Yes normal to inspection, No no pedal edema and No calf tenderness Office Procedures EKG Details: EKG shows normal sinus rhythm with will minimal voltage criteria for LVH [id number]-[id number], Complete Assessment & Plan Assessment & Plan (1) Aortic stenosis: Code(s): I35.0 - Nonrheumatic aortic (valve) stenosis Plan: Aortic stenosis which is moderate and stable. We discussed about pathophysiology aortic stenosis and gradual progression. Follow-up echocardiogram in a year's time. Cardinal symptoms associated with aortic stenosis were discussed continue aggressive vascular risk factor modification, see below. (2) CAD (coronary artery disease): Comment: Sees Dr. Blanchard Code(s): I25.10 - Atherosclerotic heart disease of [place] coronary artery without angina pectoris Plan: Nonobstructive CAD with no current symptoms. Continue aggressive medical therapy. Blood pressure is currently well optimized advised to monitor blood pressure at home maintain a log. Goal blood pressure less than 130/84. Continue high-intensity statin therapy with target goal LDL less than 70 mg/dL. Advise lipid panel near future. Continue low-dose aspirin therapy. Advised to call me with any new symptoms. (3) Preop cardiovascular exam: Code(s): Z01.810 - Encounter for preprocedural cardiovascular examination Plan: Preoperative cardiovascular risk stratification for colonoscopy which is considered low risk procedure in a patient with no cardiovascular symptoms at good workload but with hemodynamically not significant aortic stenosis. Currently optimized to undergo the procedure with low to intermediate risk. Avoid agents which cause significant vaso dilatation. Follow-up blood pressure closely through the procedure. Continue all medications except for aspirin which is at the surgeon's discretion. Will follow up in the clinic in 1 year's time, sooner p.r.n.. Thank you for allowing me to partake in his care Orders: Orders CA echo transthoracic complete 50 Weeks I35.0 - Nonrheumatic aortic (valve) stenosis Lipid Panel Today I25.10 - Atherosclerotic heart disease of [place] coronary artery without angina pectoris, I35.0 - Nonrheumatic aortic (valve) stenosis Coding Level of Care Code Est Pt Level 4 (65383) Diagnoses Aortic stenosis I35.0 CAD (coronary artery disease) I25.10 Preop cardiovascular exam Z01.810 CPT Codes EKG - CPT: 58152-[id number], Complete ([id number])
== END 2023-09-03 11:03 | disposition home or self-care (01) ==
PROVIDERS: Visit Provider Internal Medicine Cardiovascular Disease
DX: I35.0 Nonrheumatic aortic (valve) stenosis (principal); I25.10 Atherosclerotic heart disease of native coronary artery without angina pectoris; Z01.810 Encounter for preprocedural cardiovascular examination
CPT/HCPCS: 93010; 99214

== ENCOUNTER → 2023-09-03 10:42 | Outpatient (BNVA) | payer MEDICARE, MEDICAID, SELFPAY | PROVIDERS: Visit Provider Internal Medicine Cardiovascular Disease | DX: Z01.810 Encounter for preprocedural cardiovascular examination (principal); I25.10 Atherosclerotic heart disease of native coronary artery without angina pectoris; I35.0 Nonrheumatic aortic (valve) stenosis | CPT/HCPCS: 93005; 99212 ==

== ENCOUNTER 2023-09-04 10:36 | Outpatient (REF) | payer MEDICARE, MEDICAID, SELFPAY ==
[2023-09-04 12:18] LABS: Cholesterol 209 mg/dL (<200); HDL Cholesterol 47 mg/dL (>40); LDL Cholesterol Calculated 120 mg/dL (<100); Triglycerides 210 mg/dL (<150)
== END 2023-09-04 10:37 | disposition home or self-care (01) ==
LOC: HO.LAB 10:36
PROVIDERS: PCP Internal Medicine; Visit Provider Internal Medicine Cardiovascular Disease
DX: I25.10 Atherosclerotic heart disease of native coronary artery without angina pectoris (principal); I35.0 Nonrheumatic aortic (valve) stenosis
CPT/HCPCS: 36415; 80061

== ENCOUNTER 2023-09-07 18:47 | Emergency (ER) | payer MEDICARE, MEDICAID, SELFPAY ==
--- NOTE | ~2023-09-07 | XR_ITS ---
EXAMINATION: XR CHEST CLINICAL INFORMATION: Reason for Exam LUQ pain, cough, r/o pna LLL COMPARISON: Chest radiograph 05/16/2021 TECHNIQUE: One view of the chest FINDINGS: Lines and tubes: None. Clear lungs. No pleural effusion. No pneumothorax. Unchanged cardiomediastinal silhouette with ectatic thoracic aorta and mildly enlarged cardiac silhouette. XR/XR chest 1V IMPRESSION: 1. Clear lungs. 2. Unchanged cardiomediastinal silhouette with ectatic thoracic aorta and mildly enlarged cardiac silhouette.
[2023-09-07 19:11] VITALS: BP 126/73; PULSE 63; RESP 18; TEMP 36.4; O2SAT 96; BMI 34.3
--- NOTE | 2023-09-07 19:18 | ECG_ITS ---
Test Reason : CHEST PAIN Blood Pressure : / mmHG Vent. Rate : 065 BPM Atrial Rate : 065 BPM P-R Int : 182 ms QRS Dur : 092 ms QT Int : 396 ms P-R-T Axes : 058 -13 018 degrees QTc Int : 411 ms Normal sinus rhythm Normal ECG When compared with ECG of 16-MAY-2021 13:55, No significant change was found Referred By: Generic ED Physician Electronically Signed By:SALOMÓN ALMARAZ MD
[2023-09-07 19:36] LABS: MANUAL DIFF FLAG NO
[2023-09-07 19:45] LABS: Basophils Absolute Auto 0.1 X10*3/uL (0.0-0.2); Basophils Percent Auto 0.9 % (0-2); Eosinophils Absolute Auto 0.2 X10*3/uL (0.0-0.4); Eosinophils Percent Auto 2.7 % (0-4); Hemoglobin 12.4 g/dl (14.0-18.0); Imm Gran Abs Auto 0.02 X10*3/uL (0.00-0.03); Imm Gran Pct Auto 0.3 % (0.0-0.4); Lymphocytes Absolute Auto 1.9 X10*3/uL (1.2-4.9); Lymphocytes Percent Auto 28.5 % (20-40); Mean Corpuscular HGB Conc 33.5 g/dl (31.0-36.0); Mean Corpuscular Hemoglobin 26.6 pg (27.0-33.0); Mean Corpuscular Volume 79.4 fL (80.0-98.0); Mean Platelet Volume 9.8 fL (9.4-12.4); Monocytes Absolute Auto 0.9 X10*3/uL (0.1-1.2); Monocytes Percent Auto 13.3 % (2-11); Neutrophils Absolute Auto 3.6 x10*3/uL (2.0-8.3); Neutrophils Percent Auto 54.3 % (45-73); Platelet Count 222 X10*3/uL (160-400); Red Blood Count 4.66 X10*6/uL (4.60-5.80); Red Cell Distribution Width 14.8 % (11.0-16.0); White Blood Count 6.6 X10*3/uL (4.8-10.8)
[2023-09-07 19:55] LABS: Alanine Aminotransferase 14 U/L (0-40); Alkaline Phosphatase 66 U/L (39-117); Anion Gap 9 (12-20); Aspartate Amino Transferase 19 U/L (5-37); Bilirubin Total 0.5 mg/dL (0.0-1.0); Blood Urea Nitrogen 17 mg/dL (9-16); Calcium 9.4 mg/dL (8.4-10.2); Carbon Dioxide 28 mmol/L (22-29); Chloride 108 mmol/L (96-108); Creatinine Clr Calc Pharmacy 48.1; Estimated Glomerular Filt Rate 47; Glucose Random 128 mg/dL (60-115); Lipase 33 U/L (8-78); Potassium 3.4 mmol/L (3.3-5.1); Sodium 142 mmol/L (135-145); Total Protein 7.5 g/dL (6.5-8.0)
[2023-09-07 20:00] LABS: Troponin-I High Sensitivity 11.6 ng/L (<3.5-35.0)
--- NOTE | 2023-09-07 23:28 | ED.ABDPAIN ---
HPI - Abdominal Pain General Chief Complaint: Abdominal Pain Stated Complaint: Upper abdominal pain, Cough Time Seen by Provider: 09/07/23 23:06 Source: patient Mode of arrival: ambulatory Limitations: no limitations History of Present Illness HPI narrative: patient comes to the emergency room complaining of left upper quadrant pain for couple of weeks. Patient states that he is known to have history of GERD. patient states the pain is constant, but when he eats or drinks it hurts more. Also, patient states that he has been coughing more than usual, and when he coughs, it hurts more. Patient denies any nausea vomiting or diarrhea. Denies any previous abdominal surgeries. Related Data Home Medications Medication Instructions Recorded Confirmed albuterol sulfate 90 mcg/actuation 2 puff inhalation Q4-6H PRN 08/30/20 09/03/23 aerosol inhaler Wheezing dexamethasone 2 mg tablet 6 mg PO QAM 08/30/20 09/03/23 dexlansoprazole 60 mg 60 mg PO DAILY 08/30/20 09/03/23 capsule,biphase delayed release fluticasone furoate 100 1 inh inhalation DAILY 08/30/20 09/03/23 mcg-vilanterol 25 mcg/dose inhalation powder fluticasone propionate 50 2 spray intranasal DAILY 08/30/20 09/03/23 mcg/actuation nasal spray,suspension valsartan 160 mg tablet 160 mg PO DAILY 08/30/20 09/03/23 cyclobenzaprine 10 mg tablet 10 mg PO BID PRN Pain 01/24/21 09/03/23 latanoprost 0.005 % eye drops 1 drp ophthalmic (eye) DAILY 01/24/21 09/03/23 diclofenac sodium 75 mg 75 mg PO BID 04/14/21 09/03/23 tablet,delayed release chlorthalidone 25 mg tablet 25 mg PO DAILY 05/16/21 09/03/23 magnesium oxide 400 mg (241.3 mg 400 mg PO DAILY 08/10/21 09/03/23 magnesium) tablet Previous Rx's Medication Instructions Recorded meloxicam 15 mg tablet (Mobic) 15 mg PO DAILY 30 days #30 tabs 11/21/20 amlodipine 5 mg tablet 5 mg PO DAILY #90 tabs 10/17/22 aspirin 81 mg tablet,delayed 81 mg PO DAILY #90 tabs 10/17/22 release fenofibrate 160 mg tablet 160 mg PO DAILY #90 tabs 11/08/22 atorvastatin 80 mg tablet 80 mg PO BEDTIME 90 days #90 tabs 11/23/22 ezetimibe 10 mg tablet (Zetia) 10 mg PO DAILY #90 tabs 11/23/22 bisacodyl 5 mg tablet,delayed 10 mg (2 x 5 mg) PO ONCE 01/28/23 release (Dulcolax (bisacodyl)) colonoscopy prep 1 day #2 tabs polyethylene glycol 3350 17 238 g PO ONCE 1 day #238 grams 01/28/23 gram/dose oral powder (Miralax) evolocumab 140 mg/mL subcutaneous 140 mg subcut Q2W #2 mL 09/06/23 pen injector (Repatha SureClick) sucralfate 1 gram tablet (Carafate) 1 g PO BID #60 tabs 09/08/23 Allergies Allergy/AdvReac Type Severity Reaction Status Date / Time No Known Allergies Allergy Verified 01/28/23 13:57 [No Known Allergies*] Review of Systems Review of Systems Constitutional : No Weight loss, No Fever, No Chills, No Night Sweats, No Fatigue, No Malaise , well-appearing ENT/Mouth : No Hearing loss, No Ear Pain, No Nasal Congestion, No Sinus Pain, No Hoarseness, No sore throat, No Rhinorrhea, No Swallowing Difficulty Eyes: No Eye Pain, No Swelling, No Redness, No Foreign Body, No Discharge, No Vision Changes Cardiovascular : No Chest Pain, No SOB, No Dyspnea on Exertion, No Orthopnea, No Edema, No Palpitations Respiratory : No Cough, No Sputum, No Wheezing, No Smoke Exposure, No Dyspnea Gastrointestinal : No Nausea, No Vomiting, No Diarrhea, No Constipation, complaining of left upper quadrant pain for 2 weeks, no melena Genitourinary : no irregular bleeding, No Dysuria, No Urinary Frequency, No Hematuria, No Urinary Incontinence, No Urgency, No Flank Pain, No Urinary Flow Changes, No Hesitancy Musculoskeletal : No joint pain, No Myalgias, No Joint Swelling Skin : No Skin Lesions, No rash Neuro : No Weakness, No Numbness, No Paresthesias, No Loss of Consciousness, No Dizziness, No Headache Psych : No Anxiety/Panic, No Depression, No SI/HI/AH/VH, No Social Issues, Heme/Lymph: No Bruising, No Bleeding,No Lymphadenopathy Endocrine : No Polyuria, No Polydipsia, No Temperature Intolerance [facility] Past Medical History Medical History Anemia Acid reflux Aortic stenosis CAD (coronary artery disease) Hyperlipidemia HTN (hypertension) Surgical History History of lung surgery History of esophagogastroduodenoscopy (EGD) H/O colonoscopy Hx of sigmoidoscopy Hx of cystoscopy Family History Family History Father Cardiac arrest Hyperlipemia Mother No problems noted. Brother Cardiac arrest Social History Social History Household Members: Spouse Alcohol intake: unknown Patient Tobacco Use Status: Never used Tobacco Advance Directives: No Advance Directives Information Provided: No Physical Exam ED Vital Signs: Vital Signs - 24 hr 09/07/23 19:11 09/07/23 23:36 Temperature 97.6 F 97.8 F Pulse Rate 63 63 Respiratory Rate 18 18 Blood Pressure 126/73 158/93 H Pulse Oximetry 96 98 Oxygen Delivery Method Room Air Room Air BMI result Body Mass Index 34.3 Const Other: Appearance: Alert. Oriented X3. No acute distress. Eyes: Pupils equal, round and reactive to light. ENT: Pharynx normal. Neck: Normal inspection. Neck supple. No lymph nodes noted. No crepitus CVS: Normal heart rate and rhythm. Pulses normal. Normal S1 and S2 Respiratory: No respiratory distress. Breath sounds normal. No Wheezing. No rales Abdomen: Soft and nontender. No rigidity. No distention. no rebound, no guarding, negative Engel sign Skin: Skin warm and dry. Normal skin color. Normal skin turgor. Extremities: No lower extremity edema. No Lacerations. No Rash Neuro: Oriented X 3. No motor deficit. No sensory deficit. Moving all extremities. No slurred speech. CN 2 through 12 grossly intact Psych: calm, cooperative, normal affect Medical Decision Making Medical Decision Making MDM Narrative: - my interpretation of labs: Normal white blood cell count, Hematology at baseline, chemistry at baseline - physical exam of the abdomen is unremarkable, patient did not have any significant pain on palpation, ulcer perforation not suspected - chest x-ray pending to rule out pneumonia/free air, low suspicion - patient given p.o. Maalox and viscous lidocaine - discussed with the patient he needs to follow up with Gastroenterology, patient has never had an endoscopy, patient likely has peptic ulcer disease - patient had abdominal relief after GI cocktail. - at home, patient takes pantoprazole - my interpretation chest x-ray: No pneumonia, no free air under diaphragm Differential Diagnosis Differential Diagnoses: The differential diagnosis associated with the presentation includes ( as above) Admission/Observation Consideration of admission/observation: Escalation of care including admission/observation considered ( ) Lab Data MDM Lab Attestation statement: I reviewed the patient's lab results. 09/07/23 19:27 09/07/23 19:27 Labs: Lab Results 09/07/23 Range/Units 19:27 WBC 6.6 (4.8-10.8) X10*3/uL RBC 4.66 (4.60-5.80) X10*6/uL Hgb 12.4 L (14.0-18.0) g/dl Hct 37.0 L (42.0-52.0) % MCV 79.4 L (80.0-98.0) fL MCH 26.6 L (27.0-33.0) pg MCHC 33.5 (31.0-36.0) g/dl RDW 14.8 (11.0-16.0) % Plt Count 222 (160-400) X10*3/uL MPV 9.8 (9.4-12.4) fL Immature Gran % (Auto) 0.3 (0.0-0.4) % Neut % (Auto) 54.3 (45-73) % Lymph % (Auto) 28.5 (20-40) % [place] % (Auto) 13.3 H (2-11) % Eos % (Auto) 2.7 (0-4) % Baso % (Auto) 0.9 (0-2) % Lymph # (Auto) 1.9 (1.2-4.9) X10*3/uL [place] # (Auto) 0.9 (0.1-1.2) X10*3/uL Eos # (Auto) 0.2 (0.0-0.4) X10*3/uL Baso # (Auto) 0.1 (0.0-0.2) X10*3/uL Abs Immat Gran (auto) 0.02 (0.00-0.03) X10*3/uL Absolute Neuts (auto) 3.6 (2.0-8.3) x10*3/uL Absolute Nucleated RBC 0.000 (0.0-0.012) X10*3/uL Nucleated RBC % (auto) 0.0 (0.0-0.2) /100WBC Sodium 142 (135-145) mmol/L Potassium 3.4 (3.3-5.1) mmol/L Chloride 108 (96-108) mmol/L Carbon Dioxide 28 (22-29) mmol/L Anion Gap 9 L (12-20) BUN 17 H (9-16) mg/dL Creatinine 1.49 H (0.5-1.4) mg/dL Estim Creat Clear Calc 48.1 Estimated GFR 47 Random Glucose 128 H (60-115) mg/dL Calcium 9.4 (8.4-10.2) mg/dL Total Bilirubin 0.5 (0.0-1.0) mg/dL AST 19 (5-37) U/L ALT 14 (0-40) U/L Alkaline Phosphatase 66 (39-117) U/L Troponin I High Sens 11.6 (<3.5-35.0) ng/L Total Protein 7.5 (6.5-8.0) g/dL Albumin 4.0 (3.5-5.0) g/dL Lipase 33 (8-78) U/L Independent Interpretation I performed an independent interpretation of an: Plain X-Ray Radiology Impression Discussion of test interpretation with radiology: I have reviewed the radiologist's reading. Radiologist Impression: FINDINGS: Lines and tubes: None. Clear lungs. No pleural effusion. No pneumothorax. Unchanged cardiomediastinal silhouette with ectatic thoracic aorta and mildly enlarged cardiac silhouette. XR/XR chest 1V IMPRESSION: 1. Clear lungs. 2. Unchanged cardiomediastinal silhouette with ectatic thoracic aorta and mildly enlarged cardiac silhouette. Medications Administered Discontinued Medications Generic Name Dose Route Start Last Admin Trade Name Freq PRN Reason Stop Dose Admin Al Hydroxide/Mg Hydroxide 30 ml 09/07/23 23:24 11/18/23 23:33 Magnesium Hydrox/Alum Hydrox 30 Ml Oral.Susp PO 09/07/23 23:25 30 ml ONCE ONE Administration Lidocaine HCl 15 ml 09/07/23 23:24 09/07/23 23:33 Lidocaine Hcl Viscous 2 % 15 Ml Solution MUCOUS MEM 09/07/23 23:25 15 ml ONCE ONE Administration Critical Care Time Critical Care Time Critical Care Time: Yes Total Critical Care Time: 30 Attestation: I have personally provided critical care time. Time includes review of lab data, radiology results, discussion with consultants, and monitoring for potential decompensation. Intervention performed as documented. Discharge Plan Discharge Clinical Impression: Peptic ulcer disease Patient Disposition: Home, Self-Care Instructions: Peptic Ulcer (ED), Diet for Stomach Ulcers and Gastritis (ED) Additional Instructions: Please follow-up with your primary care physician tomorrow. If you have any worsening or new symptoms, please return to the emergency room or call 911 Prescriptions: New sucralfate [Carafate] 1 gram tablet 1 g PO BID Qty: 60 0RF No Action meloxicam [Mobic] 15 mg tablet 15 mg PO DAILY 30 Days Qty: 30 6RF amlodipine 5 mg tablet 5 mg PO DAILY Qty: 90 3RF aspirin 81 mg tablet,delayed release (DR/EC) 81 mg PO DAILY Qty: 90 3RF fenofibrate 160 mg tablet 160 mg PO DAILY Qty: 90 3RF ezetimibe [Zetia] 10 mg tablet 10 mg PO DAILY Qty: 90 3RF atorvastatin 80 mg tablet 80 mg PO BEDTIME 90 Days Qty: 90 3RF Repatha SureClick 140 mg/mL pen injector 140 mg subcut Q2W Qty: 2 5RF Hold Instructions: Doctor's Order diclofenac sodium 75 mg tablet,delayed release (DR/EC) 75 mg PO BID magnesium oxide 400 mg (241.3 mg magnesium) tablet 400 mg PO DAILY chlorthalidone 25 mg tablet 25 mg PO DAILY Breo Ellipta 100-25 mcg/dose blister with device 1 inh inhalation DAILY dexamethasone 2 mg tablet 6 mg PO QAM fluticasone propionate 50 mcg/actuation spray,suspension 2 spray intranasal DAILY albuterol sulfate 90 mcg/actuation HFA aerosol inhaler 2 puff inhalation Q4-6H PRN (Reason: Wheezing) valsartan 160 mg tablet 160 mg PO DAILY Dexilant 60 mg capsule,biphase delayed releas 60 mg PO DAILY latanoprost 0.005 % drops 1 drp ophthalmic (eye) DAILY cyclobenzaprine 10 mg tablet 10 mg PO BID PRN (Reason: Pain) bisacodyl [Dulcolax (bisacodyl)] 5 mg tablet,delayed release (DR/EC) 10 mg PO ONCE 1 Days Qty: 2 0RF Rx Instructions: Take 2 tablets by mouth at 12:00pm the day before your procedure. polyethylene glycol 3350 [Miralax] 17 gram/dose powder 238 g PO ONCE 1 Days Qty: 238 0RF Rx Instructions: Take as directed by mouth the day before your procedure. Referrals: Gavin Guidry MD [Physician] - 09/09/23
[2023-09-07] MEDS: Magnesium Hydrox/Alum Hydrox 30 ML ORAL.SUSP PO (23:33)
[2023-09-07] MEDS: Lidocaine HCl Viscous 2 % 15 ML SOLUTION MUCOUS MEM (23:33)
[2023-09-07 23:36] VITALS: BP 158/93; PULSE 63; RESP 18; TEMP 36.6; O2SAT 98
== END 2023-09-08 00:51 | disposition home or self-care (01) ==
PROVIDERS: Emergency Provider Emergency Medicine; PCP Internal Medicine
DX: K27.9 Peptic ulcer, site unspecified, unspecified as acute or chronic, without hemorrhage or perforation (principal); I10 Essential (primary) hypertension; E78.5 Hyperlipidemia, unspecified; K21.9 Gastro-esophageal reflux disease without esophagitis; Z79.82 Long term (current) use of aspirin; Z79.899 Other long term (current) drug therapy
CPT/HCPCS: 36415; 71045; 80053; 83690; 84484; 85025; 93005; 99284

== ENCOUNTER 2023-11-12 08:03 | Outpatient (REF) | payer MEDICARE, MEDICAID, SELFPAY ==
--- NOTE | ~2023-11-12 | CT_ITS ---
EXAMINATION: CT ABDOMEN AND PELVIS WITH CONTRAST CLINICAL INFORMATION: Upper abdominal pain. COMPARISON: CT abdomen and pelvis 10/18/2022. TECHNIQUE: Multidetector volumetric images were obtained from the superior aspect of the liver through the pubic symphysis following administration 85 mL of Omnipaque 350 intravenous contrast. Sagittal and coronal reformatted images were obtained on the technologist's workstation. Oral contrast: No This CT examination was performed using dose optimization techniques as appropriate, variously including the following: *Automated exposure control *Adjustment of mA and/or kV according to patient size (this includes techniques or standardized protocols for targeted exams where dose is matched to indication/reason for exam; i.e. extremities or head) *Use of iterative reconstruction technique DLP: 432 mGy-cm FINDINGS: LUNG BASES: A small staple line in the left lower lobe is again noted. No suspicious lung masses or effusions are seen. LIVER, GALLBLADDER, AND BILIARY TREE: The liver is normal in size, shape, and attenuation. 3 mm hypodensity seen just above the falciform ligament and is unchanged consistent with a tiny cyst. No worrisome solid focal hepatic lesion or biliary ductal dilatation is present. The gallbladder is unremarkable with no evidence of radiopaque gallstones, gallbladder wall thickening, or obvious pericholecystic inflammatory changes. PANCREAS: Unremarkable. SPLEEN: Unremarkable. ADRENAL GLANDS: Unremarkable. KIDNEYS AND URETERS: The kidneys are normal in size, shape, and attenuation. No hydronephrosis, hydroureter, or calculi seen. A benign left lower pole 2.7 cm and left upper pole 1.7 cm Bosniak class I renal cysts are noted which require no additional imaging or followup. No solid renal masses are seen. BLADDER: Empty but unremarkable. GASTROINTESTINAL TRACT: A tiny hiatal hernia is present. The small and large bowel are unremarkable. The appendix is unremarkable. ABDOMINAL WALL: No significant hernia is appreciated. Tiny periumbilical hernia seen containing only fat. LYMPH NODES: No retroperitoneal lymphadenopathy. VASCULAR: Minimal calcific aortic plaque seen without aneurysm. PELVIC VISCERA: There is [id number] BPH. Seminal vesicles appear normal. OSSEOUS STRUCTURES: Degenerative changes are present in the spine with grade 1 anterolisthesis L4 upon L5 and inferior endplate L4 Schmorl's node. Mild compression deformity superior endplate of L2. There is a hemangioma in the T11 vertebral body. These findings are unchanged when compared to 10/18/2022. CT/CT abdomen pelvis w IV con IMPRESSION: 1. A cause for the patient's upper abdominal pain has not been found. 2. Incidental note made of a tiny hiatal hernia, benign hepatic and renal cysts which need no further imaging or followup, BPH and degenerative changes in the spine. Fleischner guidelines were followed.
[2023-11-12] MEDS: iohexoL 350 MG/ML 100 ML INFUS..BTL IV (08:42)
== END 2023-11-12 08:04 | disposition home or self-care (01) ==
LOC: HO.CT 08:03
PROVIDERS: PCP Internal Medicine; Visit Provider Internal Medicine
DX: R10.10 Upper abdominal pain, unspecified (principal)
CPT/HCPCS: 74177; Q9967

== ENCOUNTER 2024-01-07 09:22 | Outpatient (AMB) | payer OTHER, SELFPAY ==
[2024-01-07 09:28] VITALS: BP 132/70; PULSE 69; BMI 34.0
--- NOTE | 2024-01-07 09:28 | A.OFFVIS_ITS ---
Intake Vital Signs 01/07/24 09:28 Height 5 ft 4 in Weight 198 lb BMI 34.0 BP 132/70 Blood Pressure Location Lt brachial Position Sitting Pulse 69 Intake Visit Reasons: ED Follow Up, Gastritis Intake Note: Patient follow up from ED due Gastritis and pre Colonoscopy screening. Patient cc: gastritis pain, denies any other GI issues. 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 He was then sent to Dr. Guidry- he chose to cx-wanted to stay with us- He presents today- extremly anxious- elevated PSA- and had a recent MRI-2 lesions, he is awaiting today for phone call to schedule biopsy . He does not want to go forward with anything until the prostate issue has been taking care He has no GI complaints. He has a normal bowel pattern his appetite is He is following up with Nephrology today He has no nausea, vomiting, hematemesis, hematochezia, abdominal pain, fever or chills PFSH Medical History Anemia Acid reflux Aortic stenosis CAD (coronary artery disease) Hyperlipidemia HTN (hypertension) Surgical History History of lung surgery History of esophagogastroduodenoscopy (EGD) H/O colonoscopy Hx of sigmoidoscopy Hx of cystoscopy Family History Father Cardiac arrest Hyperlipemia Mother No problems noted. Brother Cardiac arrest Social History Household Members: Spouse Alcohol intake: unknown Patient Tobacco Use Status: Never used Tobacco Review of Systems Const All systems reviewed & are unremarkable except as noted in HPI and below Psych Reports anxiety Physical Exam Vital Signs: Last Vital Signs Pulse 69 01/07/24 09:28 BP 132/70 01/07/24 09:28 BMI result Body Mass Index 34.0 Const General: cooperative, healthy appearing and anxious Orientation/consciousness: patient oriented x3 Limitations: no limitations Resp Effort & Inspection: normal respiratory effort and able to speak in complete sentences Skin General skin exam: no rashes or lesions noted Neuro General: patient oriented x3 Extrem General: Yes full ROM Psych Appearance: grossly normal and well kempt Mental Status: mental status grossly normal Speech and movement: Clear speech present Affect: normal affect and Anxious affect present Thought process: Normal thought process present Thought content: Normal thought content present Insight: Good insight present (Psych) Judgement: Good judgement present (Psych) Results Reviewed Results Reviewed: 12/25/23 MRI -prostate-abnormality Two, 1 cm suspicious lesion-no lymphadenopathy Assessment & Plan Assessment & Plan (1) Prostatitis: Code(s): N41.9 - Inflammatory disease of prostate, unspecified Plan: Follow-up with urology as planned (2) Elevated PSA: Onset Date: ~01/07/24 Code(s): R97.20 - Elevated prostate specific antigen [PSA] Plan: Await biopsy appointment Offered support (3) Anxiety: Comment: Recently reviewed MRI after elevated PSA-there are suspicious lesions he is awaiting biopsy-extremely anxious certainly understandable Code(s): F41.9 - Anxiety disorder, unspecified Plan: Emotional support- Plan He will call to reschedule procedures when time appropriate Patient Instructions: Pleasant, extremely anxious 68-year-old Gent overdue for EGD colonoscopy however currently undergoing treatment with urology awaiting prostate biopsy with plan We reviewed MRI, emotional support offered very receptive. He will call us after he has further plan with by EGD-this is reasonable Encouraged to call for any questions or concerns Coding Level of Care Code Est Pt Level 3 (64718) Diagnoses Prostatitis N41.9 Elevated PSA R97.20 Anxiety F41.9 Time Spent (min) 30
== END 2024-01-07 11:10 | disposition home or self-care (01) ==
PROVIDERS: PCP Internal Medicine; Visit Provider Physician Assistant
DX: N41.9 Inflammatory disease of prostate, unspecified (principal); R97.20 Elevated prostate specific antigen [PSA]; F41.9 Anxiety disorder, unspecified
CPT/HCPCS: 99213

== ENCOUNTER → 2024-01-07 09:22 | Outpatient (BNVA) | payer OTHER, SELFPAY | PROVIDERS: PCP Internal Medicine; Visit Provider Physician Assistant | DX: R97.20 Elevated prostate specific antigen [PSA] (principal); N41.9 Inflammatory disease of prostate, unspecified; F41.9 Anxiety disorder, unspecified | CPT/HCPCS: 99212 ==

== ENCOUNTER 2024-01-15 13:17 | Outpatient (AMB) | payer OTHER, SELFPAY ==
[2024-01-15 13:46] VITALS: BP 134/70; PULSE 63; O2SAT 97; BMI 35.0
--- NOTE | 2024-01-15 13:46 | HO.NEPHOV_ITS ---
HPI HPI Comments History of Present Illness Details I had the privilege of seeing Mr Fatou in follow-up of his chronic kidney disease and hypertension. He is known to have coronary artery disease. Recently his PSA has gone up and had undergone further imaging studies. He is awaiting a prostate biopsy. He is anxious about delay in the prostate surgery. His blood pressure has been at goal. He denies hematuria, dysuria, chest pain, shortness of breath, pedal edema, orthostatic symptoms. He avoids nonsteroidal anti-inflammatories and maintain good hydration. He has been having right flank pain. Otherwise he feels well. [facility] Medical History Anemia Acid reflux Aortic stenosis CAD (coronary artery disease) Hyperlipidemia HTN (hypertension) Surgical History History of lung surgery History of esophagogastroduodenoscopy (EGD) H/O colonoscopy Hx of sigmoidoscopy Hx of cystoscopy Family History Father Cardiac arrest Hyperlipemia Mother No problems noted. Brother Cardiac arrest Social History Household Members: Spouse Alcohol intake: unknown Patient Tobacco Use Status: Never used Tobacco Vital Signs 01/15/24 13:46 Height 5 ft 4 in Weight 204 lb 2 oz BMI 35.0 BP 134/70 Blood Pressure Location Lt brachial Position Sitting Pulse 63 Pulse Source Pulse Oximeter Pulse Oximetry (%) 97 Oxygen Delivery Method Room Air Physical Exam Vital Signs: Last Vital Signs Pulse 63 01/15/24 13:46 BP 134/70 01/15/24 13:46 Pulse Ox 97 01/15/24 13:46 Oxygen Delivery Method Room Air 01/15/24 13:46 BMI result Body Mass Index 35.0 Const General: comfortable and no acute distress Orientation/consciousness: patient oriented x3 HEENT Head: Yes normocephalic Mouth: Normal oral and palatal mucosa present Eyes EOM: EOMs intact bilaterally Neck Neck: Yes supple Resp Auscultation: clear to auscultation bilaterally Cardio Jugular venous distension: no JVD Rate: regular rate GI Palpation (GI): Soft to palpation Auscultation: normal bowel sounds General: Yes no CVA tenderness Back/Spine/Pelvis Back: no CVA tenderness Skin General skin exam: no rashes or lesions noted Neuro General: patient oriented x3 and moves all extremities Extrem General: Yes no pedal edema Assessment & Plan Assessment & Plan (1) Nephrolithiasis: Code(s): N20.0 - Calculus of kidney (2) HTN (hypertension): Code(s): I10 - Essential (primary) hypertension Qualifiers: Hypertension type: unspecified Qualified Code(s): I10 - Essential (primary) hypertension (3) CKD (chronic kidney disease) stage 3, GFR 30-59 ml/min: Code(s): N18.30 - Chronic kidney disease, stage 3 unspecified Qualifiers: Chronic kidney disease stage 3 subtype: stage 3a (GFR 45-59) Qualified Code(s): N18.31 - Chronic kidney disease, stage 3a Plan Mr Lainez 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 He is known to have hypertension as well as coronary artery disease. He denies any peripheral arterial disease, carotid stenosis, congestive heart failure or CVA. He has dyslipidemia and is on medications. His blood pressure has been at goal. He is on ARB. I have ordered renal ultrasound. He may need a Doppler of his renal arteries if his serum creatinine worsens. He is awaiting prostate surgery. He should avoid nonsteroidal anti-inflammatories. He should maintain good hydration. All these were discussed in detail. Follow-up lab work ordered follow-up appointment given. Orders: Orders Blood Urea Nitrogen 01/15/24 I10 - Essential (primary) hypertension, N18.30 - Chronic kidney disease, stage 3 unspecified, N20.0 - Calculus of kidney Electrolytes 01/15/24 I10 - Essential (primary) hypertension, N18.30 - Chronic kidney disease, stage 3 unspecified, N20.0 - Calculus of kidney US renal BI 01/15/24 N18.30 - Chronic kidney disease, stage 3 unspecified Creatinine 01/15/24 I10 - Essential (primary) hypertension, N18.30 - Chronic kidney disease, stage 3 unspecified, N20.0 - Calculus of kidney Calcium 01/15/24 I10 - Essential (primary) hypertension, N18.30 - Chronic kidney disease, stage 3 unspecified, N20.0 - Calculus of kidney Protein Creatinine Ratio, Ur 01/15/24 I10 - Essential (primary) hypertension, N18.30 - Chronic kidney disease, stage 3 unspecified, N20.0 - Calculus of kidney Medications: Discontinued meloxicam (Mobic) Discontinued Reason: Doctor's Order 15 mg PO DAILY 30 days 30 tabs 6RF R10.31 - Right lower quadrant pain, R10.32 - Left lower quadrant pain Coding Level of Care Code Est Pt Level 4 (72966) Diagnoses Nephrolithiasis N20.0 HTN (hypertension) I10 Hypertension type: unspecified Stage 3a chronic kidney disease N18.31 Chronic kidney disease stage 3 subtype: stage 3a (GFR 45-59) Results Reviewed Nephrology Results: Hgb 12.4 g/dl (14.0-18.0) L 09/07/23 WBC 6.6 X10*3/uL (4.8-10.8) 09/07/23 Plt Count 222 X10*3/uL (160-400) 09/07/23 Sodium 142 mmol/L (135-145) 09/07/23 Potassium 3.4 mmol/L (3.3-5.1) 09/07/23 Chloride 108 mmol/L (96-108) 09/07/23 Carbon Dioxide 28 mmol/L (22-29) 09/07/23 BUN 17 mg/dL (9-16) H 09/07/23 Creatinine 1.49 mg/dL (0.5-1.4) H 09/07/23 Calcium 9.4 mg/dL (8.4-10.2) 09/07/23
== END 2024-01-15 14:16 | disposition home or self-care (01) ==
PROVIDERS: PCP Internal Medicine; Visit Provider Internal Medicine Nephrology
DX: N20.0 Calculus of kidney (principal); I10 Essential (primary) hypertension; N18.31 Chronic kidney disease, stage 3a
CPT/HCPCS: 99214

== ENCOUNTER → 2024-01-15 13:17 | Outpatient (BNVA) | payer OTHER, SELFPAY | PROVIDERS: PCP Internal Medicine; Visit Provider Internal Medicine Nephrology | DX: I12.9 Hypertensive chronic kidney disease with stage 1 through stage 4 chronic kidney disease, or unspecified chronic kidney disease (principal); N18.31 Chronic kidney disease, stage 3a; N20.0 Calculus of kidney | CPT/HCPCS: 99212 ==

== ENCOUNTER 2024-01-17 09:41 | Outpatient (REF) | payer OTHER, SELFPAY ==
[2024-01-17 11:41] LABS: Anion Gap 10 (12-20); Blood Urea Nitrogen 13 mg/dL (9-16); Calcium 9.6 mg/dL (8.4-10.2); Carbon Dioxide 31 mmol/L (22-29); Chloride 107 mmol/L (96-108); Estimated Glomerular Filt Rate > 60; Potassium 3.5 mmol/L (3.3-5.1); Sodium 144 mmol/L (135-145)
[2024-01-17 13:13] LABS: Creatinine Urine 260.84 mg/dL; Protein/Creatinine Ratio, Ur 0.33 (<0.2); Total Protein Urine Random 85 mg/dL (<12)
== END 2024-01-17 09:42 | disposition home or self-care (01) ==
LOC: HO.LAB 09:41
PROVIDERS: PCP Internal Medicine; Visit Provider Internal Medicine Nephrology
DX: N20.0 Calculus of kidney (principal); I12.9 Hypertensive chronic kidney disease with stage 1 through stage 4 chronic kidney disease, or unspecified chronic kidney disease; N18.30 Chronic kidney disease, stage 3 unspecified
CPT/HCPCS: 36415; 80051; 82310; 82565; 82570; 84156; 84520

== ENCOUNTER 2024-01-26 05:12 | Emergency (ER) | payer OTHER, SELFPAY ==
--- NOTE | ~2024-01-26 | CT_ITS ---
EXAMINATION: CT ABDOMEN AND PELVIS WITHOUT CONTRAST CLINICAL INFORMATION: Left lower quadrant tenderness COMPARISON: Multiple prior examinations most recent CT abdomen and pelvis October 2023. TECHNIQUE: Multidetector volumetric imaging was performed from the superior aspect of the liver through the pubic symphysis. Sagittal and coronal reformatted images were obtained on the technologist's workstation. This CT examination was performed using dose optimization techniques as appropriate, variously including the following: *Automated exposure control *Adjustment of mA and/or kV according to patient size (this includes techniques or standardized protocols for targeted exams where dose is matched to indication/reason for exam; i.e. extremities or head) *Use of iterative reconstruction technique DLP: 614 mGy-cm FINDINGS: LUNG BASES: The visualized lung bases are unremarkable. LIVER, GALLBLADDER, AND BILIARY TREE: Liver normal. The gallbladder is unremarkable with no evidence of radiopaque gallstones, gallbladder wall thickening, or obvious pericholecystic inflammatory changes. PANCREAS: Unremarkable. SPLEEN: Unremarkable. ADRENAL GLANDS: Unremarkable. KIDNEYS AND URETERS: Multiple bilateral renal cysts largest on the left in the upper pole measuring 2.5 cm unchanged. No follow-up necessary for these benign masses. No urinary tract calculi. No hydronephrosis. BLADDER: Unremarkable. GASTROINTESTINAL TRACT: Stomach normal. Bowel normal. Appendix normal. ABDOMINAL WALL: Small fat-containing umbilical hernia unchanged measuring 1.5 cm. LYMPH NODES: Normal. VASCULAR: Aand-op-[id number] calcific atherosclerotic disease throughout unchanged. PELVIC VISCERA: Unremarkable. OSSEOUS STRUCTURES: Multilevel spondylosis lumbar sacral spine unchanged. Chronic stable superior endplate compression fracture L2. Meningioma T11 vertebral body unchanged. CT/CT abdomen pelvis wo IV con IMPRESSION: 1. No acute abnormality to explain patient's reported symptoms. 2. No urinary tract calculi. Bowel normal. 3. Small fat-containing umbilical hernia unchanged. 4. Stable spondylosis of the lumbar sacral spine and chronic compression fracture L2. 5. Calcific atherosclerotic disease. 6. Stable bilateral renal cysts. No follow-up necessary for these benign masses. Fleischner guidelines were followed.
--- NOTE | 2024-01-26 05:24 | ECG_ITS ---
Test Reason : ABDOMINAL PAIN Blood Pressure : / mmHG Vent. Rate : 066 BPM Atrial Rate : 066 BPM P-R Int : 174 ms QRS Dur : 090 ms QT Int : 402 ms P-R-T Axes : 101 -12 017 degrees QTc Int : 421 ms Normal sinus rhythm Normal ECG When compared with ECG of 07-SEP-2023 19:21, No significant change was found Referred By: Generic ED Physician Electronically Signed By:PRASANTH BAIRD MD
[2024-01-26 05:25] VITALS: BP 162/110; BP 175/104; PULSE 65; PULSE 665; RESP 16; TEMP 36.6; O2SAT 97; O2SAT 98; BMI 34.9
[2024-01-26 05:54] LABS: MANUAL DIFF FLAG NO
[2024-01-26 05:55] LABS: Basophils Percent Auto 0.3 % (0-2); Eosinophils Absolute Auto 0.2 X10*3/uL (0.0-0.4); Eosinophils Percent Auto 2.9 % (0-4); Hematocrit 36.7 % (42.0-52.0); Hemoglobin 12.5 g/dl (14.0-18.0); Imm Gran Abs Auto 0.02 X10*3/uL (0.00-0.03); Imm Gran Pct Auto 0.3 % (0.0-0.4); Lymphocytes Absolute Auto 1.9 X10*3/uL (1.2-4.9); Lymphocytes Percent Auto 27.7 % (20-40); Mean Corpuscular HGB Conc 34.1 g/dl (31.0-36.0); Mean Corpuscular Hemoglobin 27.1 pg (27.0-33.0); Mean Corpuscular Volume 79.6 fL (80.0-98.0); Mean Platelet Volume 9.1 fL (9.4-12.4); Monocytes Absolute Auto 0.8 X10*3/uL (0.1-1.2); Monocytes Percent Auto 10.9 % (2-11); Neutrophils Percent Auto 57.9 % (45-73); Platelet Count 196 X10*3/uL (160-400); Red Blood Count 4.61 X10*6/uL (4.60-5.80); Red Cell Distribution Width 14.8 % (11.0-16.0); White Blood Count 6.9 X10*3/uL (4.8-10.8)
[2024-01-26 06:14] LABS: Troponin-I High Sensitivity 10.6 ng/L (<3.5-35.0)
[2024-01-26 06:16] VITALS: BP 175/104; PULSE 65; RESP 16; TEMP 36.6; O2SAT 98
[2024-01-26 06:20] LABS: COVID-19 Test Negative (Negative); IDNOW Serial# 08D9AD1C; IDNOW Serial# 152EDE1D; Influenza A Negative (Negative); Influenza B2 Negative (Negative)
[2024-01-26] MEDS: 0.9 % Sodium Chloride 1,000 ML 999 ML IV ×2 (06:49→12:09)
--- NOTE | 2024-01-26 07:05 | ED.GENADULT ---
HPI - General Adult General Chief complaint: Nausea/Vomiting/Diarrhea Stated complaint: n v d Time Seen by Provider: 01/26/24 07:04 Source: patient Mode of arrival: ambulatory Limitations: no limitations History of Present Illness HPI narrative: Patient is a 60-year-old male with history of anemia, acid reflux, aortic stenosis, CAD, HLD, HTN, CKD stage 3 presenting to the emergency department with complaint of diarrhea since 01/18. He also complains of left lower quadrant abdominal pain, he reports low-grade fever on Saturday, was seen at [facility] on . States he had viral testing there and was given IV fluids, do not have any imaging and was discharged home. He reports 2 episodes of vomiting on Saturday and 1 episode of vomiting yesterday. Reports approximately 3-4 episodes of diarrhea daily. Denies any recent antibiotic use. Denies hematochezia or melena. Denies dysuria, frequency, hematuria or other urinary symptoms. Denies back or flank pain. Denies known sick contacts. Denies recent travel or eating food that has not been fully cooked. complaint: diarrhea Onset (ago): day(s) Location: abdomen Severity: moderate Quality: aching Pain Consistency: colicky Associated symptoms: nausea/vomiting Treatments prior to arrival: none Related Data Home Medications ?Medication ?Instructions ?Recorded ?Confirmed albuterol sulfate 90 mcg/actuation 2 puff inhalation Q4-6H PRN 08/30/20 09/03/23 aerosol inhaler Wheezing dexlansoprazole 60 mg 60 mg PO DAILY 08/30/20 09/03/23 capsule,biphase delayed release fluticasone furoate 100 1 inh inhalation DAILY 08/30/20 09/03/23 mcg-vilanterol 25 mcg/dose inhalation powder fluticasone propionate 50 2 spray intranasal DAILY 08/30/20 09/03/23 mcg/actuation nasal spray,suspension valsartan 160 mg tablet 160 mg PO DAILY 08/30/20 09/03/23 latanoprost 0.005 % eye drops 1 drp ophthalmic (eye) DAILY 01/24/21 09/03/23 magnesium oxide 400 mg (241.3 mg 400 mg PO DAILY 08/10/21 09/03/23 magnesium) tablet Previous Rx's ?Medication ?Instructions ?Recorded amlodipine 5 mg tablet 5 mg PO DAILY #90 tabs 10/17/22 polyethylene glycol 3350 17 238 g PO ONCE 1 day #238 grams 01/28/23 gram/dose oral powder (Miralax) evolocumab 140 mg/mL subcutaneous 140 mg subcut Q2W #2 mL 09/06/23 pen injector (Sunshine SanchezJoaoluigi) sucralfate 1 gram tablet (Carafate) 1 g PO BID #60 tabs 09/08/23 aspirin 81 mg tablet,delayed 81 mg PO DAILY #90 tabs 10/17/23 release fenofibrate 160 mg tablet 160 mg PO DAILY #90 tabs 11/08/23 atorvastatin 80 mg tablet 80 mg PO BEDTIME #90 tabs 11/13/23 ezetimibe 10 mg tablet 10 mg PO DAILY #90 tabs 11/13/23 ondansetron 4 mg disintegrating 4 mg PO Q8H PRN nausea and 01/26/24 tablet vomiting #10 tabs Allergies Allergy/AdvReac Type Severity Reaction Status Date / Time No Known Allergies Allergy Verified 01/26/24 05:26 [No Known Allergies*] Review of Systems Review of Systems: As per HPI. Yes all other systems are reviewed and are negative Constitutional: Constitutional: Reports as per HPI [facility] Past Medical History Medical History Anemia Acid reflux Aortic stenosis CAD (coronary artery disease) Hyperlipidemia HTN (hypertension) Surgical History History of lung surgery History of esophagogastroduodenoscopy (EGD) H/O colonoscopy Hx of sigmoidoscopy Hx of cystoscopy Family History Family History Father Cardiac arrest Hyperlipemia Mother No problems noted. Brother Cardiac arrest Social History Social History Household Members: Spouse Alcohol intake: current Alcohol intake frequency: holidays/special occasions only Alcohol type: beer Patient Tobacco Use Status: Never used Tobacco Smoked in Last 30 Days: No Use of substances other than those prescribed or required for medical reasons: No Advance Directives: No Advance Directives Information Provided: No Physical Exam ED Vital Signs: Vital Signs - 24 hr 01/26/24 05:25 01/26/24 06:16 01/26/24 07:58 Temperature 97.9 F 97.9 F 97.7 F Pulse Rate 65 65 67 Respiratory Rate 16 16 19 Blood Pressure 175/104 H 175/104 H 163/89 H Pulse Oximetry 98 98 98 Oxygen Delivery Method Room Air Room Air Room Air 01/26/24 10:44 Temperature 98.1 F Pulse Rate 67 Respiratory Rate 19 Blood Pressure 158/94 H Pulse Oximetry 97 Oxygen Delivery Method Room Air BMI result Body Mass Index 34.9 Vital signs have been reviewed and appear to be correct. Blood pressure elevated. Heart rate normal. Respiratory rate normal. Temperature normal. Oxygen saturation normal. Const General: cooperative, healthy appearing and no acute distress Orientation/consciousness: oriented to person, oriented to place, oriented to time and patient oriented x3 Limitations: no limitations HENMT Head: Yes normocephalic and Yes atraumatic Ears: external ears normal General nose exam: Normal external nose present Face and sinus: Yes face symmetric Mouth: oropharynx normal and moist mucous membranes Throat: Yes uvula midline Eyes Pupils: Equal, round and reactive pupils present Neck Neck: Yes normal visual inspection and Yes supple Resp Effort & Inspection: normal respiratory effort and able to speak in complete sentences Auscultation: clear to auscultation bilaterally Cardio Rate: regular rate Rhythm: regular rhythm Heart sounds: S1 normal heart sound present and S2 normal heart sound present GI Inspection: Yes normal to inspection Palpation (GI): Soft to palpation, Tenderness to palpation present (GI) in the LLQ, no guarding and No Rebound tenderness present Auscultation: normoactive bowel sounds General: Yes no CVA tenderness Back/Spine/Pelvis Back: no CVA tenderness Skin General skin exam: elasticity normal and turgor normal Neuro General: oriented to person, oriented to place, oriented to time, patient oriented x3, moves all extremities, no focal motor deficits and CN's II-XI intact bilaterally Cranial nerves: Yes Equal, round and reactive pupils present Cognition (Neuro): normal cognition Extrem General: Yes full ROM, Yes no pedal edema and Yes no calf tenderness Psych Mental Status: mental status grossly normal Affect: normal affect Thought process: Normal thought process present Medications Administered Discontinued Medications Generic Name Dose Route Start Last Admin Trade Name Freq PRN Reason Stop Dose Admin Sodium Chloride 1,000 mls @ 999 mls/hr 01/26/24 06:45 01/26/24 09:40 Ns IV 01/26/24 07:45 Infused .Q1H1M KEELEY Infusion Sodium Chloride 1,000 mls @ 999 mls/hr 01/26/24 11:30 01/26/24 13:07 Ns IV 01/26/24 12:30 Infused .Q1H1M KEELEY Infusion Medical Decision Making Medical Decision Making [facility] Narrative: Patient is a 60-year-old male with history of anemia, acid reflux, aortic stenosis, CAD, HLD, HTN, CKD stage 3 presenting to the emergency department with complaint of diarrhea since 01/18. On exam patient is awake, A+Ox3, hypertensive, VS otherwise WNL, afebrile, normal neurological exam without focal deficits, physical exam findings as above. Given reported symptoms and physical exam findings, initial differential includes gastroenteritis, diverticulitis, flu, covid, electrolyte abnormality, dehydration. Labs notable for no leukocytosis, chronic stable anemia, no electrolyte abnormalities. CT notable for no acute abnormalities. My interpretation is in agreement with the radiologist's interpretation. Viral swabs negative. No evidence of infection on urinalysis. Stool negative for C. diff. GI panel positive for astrovirus. Patient given 2L of IVF in the ED. Results discussed with patient and all questions answered. Advised patient he should continue to hydrate with fluids containing electrolytes, continue to use Imodium for diarrhea, will prescribe Zofran for nausea. Instructed patient to follow-up with primary care provider. Return precautions discussed at bedside. Patient verbalized understanding of and agreement with plan. Differential Diagnosis Differential Diagnoses: The differential diagnosis associated with the presentation includes As per [facility] Admission/Observation Consideration of admission/observation: Escalation of care including admission/observation considered Patient would have been admitted to the hospital had their work up had any findings where hospital admission was appropriate and their clinical presentation warranted hospital admission. Lab Data [facility] Lab Attestation statement: I reviewed the patient's lab results. As per [facility] 01/26/24 05:48 01/26/24 05:48 Labs: Lab Results 01/26/24 01/26/24 01/26/24 Range/Units 05:48 05:53 11:15 WBC 6.9 (4.8-10.8) X10*3/uL RBC 4.61 (4.60-5.80) X10*6/uL Hgb 12.5 L (14.0-18.0) g/dl Hct 36.7 L (42.0-52.0) % MCV 79.6 L (80.0-98.0) fL MCH 27.1 (27.0-33.0) pg MCHC 34.1 (31.0-36.0) g/dl RDW 14.8 (11.0-16.0) % Plt Count 196 (160-400) X10*3/uL MPV 9.1 L (9.4-12.4) fL Immature Gran % (Auto) 0.3 (0.0-0.4) % Neut % (Auto) 57.9 (45-73) % Lymph % (Auto) 27.7 (20-40) % [place] % (Auto) 10.9 (2-11) % Eos % (Auto) 2.9 (0-4) % Baso % (Auto) 0.3 (0-2) % Lymph # (Auto) 1.9 (1.2-4.9) X10*3/uL [place] # (Auto) 0.8 (0.1-1.2) X10*3/uL Eos # (Auto) 0.2 (0.0-0.4) X10*3/uL Baso # (Auto) 0.0 (0.0-0.2) X10*3/uL Abs Immat Gran (auto) 0.02 (0.00-0.03) X10*3/uL Absolute Neuts (auto) 4.0 (2.0-8.3) x10*3/uL Absolute Nucleated RBC 0.000 (0.0-0.012) X10*3/uL Nucleated RBC % (auto) 0.0 (0.0-0.2) /100WBC Sodium 142 (135-145) mmol/L Potassium 3.5 (3.3-5.1) mmol/L Chloride 107 (96-108) mmol/L Carbon Dioxide 20 L (22-29) mmol/L Anion Gap 15 (12-20) BUN 15 (9-16) mg/dL Creatinine 0.90 (0.5-1.4) mg/dL Estim Creat Clear Calc 80.4 Estimated GFR > 60 Random Glucose 94 (60-115) mg/dL Calcium 9.3 (8.4-10.2) mg/dL Total Bilirubin 0.3 (0.0-1.0) mg/dL AST 23 (5-37) U/L ALT 20 (0-40) U/L Alkaline Phosphatase 78 (39-117) U/L Troponin I High Sens 10.6 (<3.5-35.0) ng/L Total Protein 7.6 (6.5-8.0) g/dL Albumin 4.0 (3.5-5.0) g/dL Lipase 47 (8-78) U/L Urine Color Yellow Urine Appearance Clear Urine pH 5.5 (5.0-9.0) Ur Specific [place] 1.010 (1.005-1.025) Urine Protein Trace (Neg-Trace) mg/dL Urine Glucose (UA) Negative (Negative) mg/dL Urine Ketones Negative (Negative) mg/dL Urine Blood Negative (Negative) Urine Nitrite Negative (Negative) Ur Leukocyte Esterase Negative (Negative) Stl C. cayetanensis PCR Not Detected (Not Detect.) Stool Rotavirus A PCR Not Detected (Not Detect.) Stl Adenov F 40/41 PCR Not Detected (Not Detect.) Stool Astrovirus (PCR) Detected A (Not Detect.) Stool Campylobacter PCR Not Detected (Not Detect.) Stool Cryptosporidium PCR Not Detected (Not Detect.) Stl Sh Tox Pr E STEC PCR Not Detected (Not Detect.) Stool E coli O157 PCR Not applicable (Not Detect.) Stl Enterotoxigenic E PCR Not Detected (Not Detect.) Stool EPEC (PCR) Not Detected (Not Detect.) Stool EAEC (PCR) Not Detected (Not Detect.) Stl E. histolytica PCR Not Detected (Not Detect.) Stool Giardia Lamblia PCR Not Detected (Not Detect.) Stl P. shigelloides PCR Not Detected (Not Detect.) Stool Salmonella PCR Not Detected (Not Detect.) Stool Sapovirus (PCR) Not Detected (Not Detect.) Stl Shigella/EIEC PCR Not Detected (Not Detect.) St Y.enterocolitica PCR Not Detected (Not Detect.) Stool Vibrio (PCR) Not Detected (Not Detect.) Stl Vibrio cholerae PCR Not Detected (Not Detect.) Stl Norovirus GI/GII PCR Not Detected (Not Detect.) C. difficile Tox B Gene NEGATIVE (Negative) COVID-19 ([place]) Negative (Negative) COVID-19 Clin Com See Note Influenza Type A ([place]) Negative (Negative) Influenza Type B ([place]) Negative (Negative) Influenza A & B Note See Note Independent Interpretation I performed an independent interpretation of an: EKG (normal sinus rhythm rate 66bpm, normal PT interval and QTc, no significant change from prior) and CT Scan Interpretation: No acute abnormalities on CT A/P Radiology Impression Discussion of test interpretation with radiology: I have reviewed the radiologist's reading. Radiologist Impression: CT/CT abdomen pelvis wo IV con IMPRESSION: 1. No acute abnormality to explain patient's reported symptoms. 2. No urinary tract calculi. Bowel normal. 3. Small fat-containing umbilical hernia unchanged. 4. Stable spondylosis of the lumbar sacral spine and chronic compression fracture L2. 5. Calcific atherosclerotic disease. 6. Stable bilateral renal cysts. No follow-up necessary for these benign masses. Fleischner guidelines were followed. External Record Review External record reviewed: Inpatient record, Office record and Outpatient record Prescription Management I considered prescription management with: Other Discharge Plan Discharge Clinical Impression: Viral gastroenteritis, Diarrhea, Abdominal pain Patient Disposition: Home, Self-Care Instructions: Acute Diarrhea (ED), Abdominal Pain (ED) Additional Instructions: You have been evaluated in the emergency department today for nausea, vomiting, and diarrhea. Your evaluation suggests that your symptoms are due to a viral illness which will improve on it's own with rest and fluids. You were given 2 liters of IV fluids in the ED today. Remember to drink plenty of fluids with electrolytes at home which is Gatorade, Powerade, Pedialyte, etc.. You are being prescribed ondansetron which you can use as per the prescription instructions for nausea. You can continue to use [id number] Imodium for your diarrhea. You can also start taking a probiotic which can be purchased [id number]. Please follow up with your primary care provider this week. Return to the emergency department if you experience worsening or uncontrolled pain, inability to tolerate fluids by mouth, difficulty breathing, fevers 100.4? F or greater, recurrent vomiting, or any other concerning symptoms. Prescriptions: New ondansetron 4 mg tablet,disintegrating 4 mg PO Q8H PRN (Reason: nausea and vomiting) Qty: 10 0RF No Action amlodipine 5 mg tablet 5 mg PO DAILY Qty: 90 3RF Repatha SureClick 140 mg/mL pen injector 140 mg subcut Q2W Qty: 2 5RF Hold Instructions: Doctor's Order aspirin 81 mg tablet,delayed release (DR/EC) 81 mg PO DAILY Qty: 90 3RF fenofibrate 160 mg tablet 160 mg PO DAILY Qty: 90 3RF atorvastatin 80 mg tablet 80 mg PO BEDTIME Qty: 90 3RF ezetimibe 10 mg tablet 10 mg PO DAILY Qty: 90 3RF sucralfate [Carafate] 1 gram tablet 1 g PO BID Qty: 60 0RF magnesium oxide 400 mg (241.3 mg magnesium) tablet 400 mg PO DAILY Breo Ellipta 100-25 mcg/dose blister with device 1 inh inhalation DAILY fluticasone propionate 50 mcg/actuation spray,suspension 2 spray intranasal DAILY albuterol sulfate 90 mcg/actuation HFA aerosol inhaler 2 puff inhalation Q4-6H PRN (Reason: Wheezing) valsartan 160 mg tablet 160 mg PO DAILY Dexilant 60 mg capsule,biphase delayed releas 60 mg PO DAILY latanoprost 0.005 % drops 1 drp ophthalmic (eye) DAILY polyethylene glycol 3350 [Miralax] 17 gram/dose powder 238 g PO ONCE 1 Days Qty: 238 0RF Rx Instructions: Take as directed by mouth the day before your procedure. Print Language: Namibian
[2024-01-26 07:58] VITALS: BP 163/89; PULSE 67; RESP 19; TEMP 36.5; O2SAT 98
[2024-01-26 09:18] LABS: Anion Gap 15 (12-20); Aspartate Amino Transferase 23 U/L (5-37); Bilirubin Total 0.3 mg/dL (0.0-1.0); Blood Urea Nitrogen 15 mg/dL (9-16); Calcium 9.3 mg/dL (8.4-10.2); Carbon Dioxide 20 mmol/L (22-29); Chloride 107 mmol/L (96-108); Creatinine Clr Calc Pharmacy 80.4; Estimated Glomerular Filt Rate > 60; Glucose Random 94 mg/dL (60-115); Potassium 3.5 mmol/L (3.3-5.1); Sodium 142 mmol/L (135-145)
[2024-01-26 09:19] LABS: Alanine Aminotransferase 20 U/L (0-40); Alkaline Phosphatase 78 U/L (39-117); Lipase 47 U/L (8-78); Total Protein 7.6 g/dL (6.5-8.0)
[2024-01-26 10:44] VITALS: BP 158/94; PULSE 67; RESP 19; TEMP 36.7; O2SAT 97
[2024-01-26 11:26] LABS: Appearance Urine Clear; Color Urine Yellow; Glucose Urine UA Negative (Negative); Leukocyte Esterase Urine Negative (Negative); Nitrite Urine Negative (Negative); PH 5.5 (5.0-9.0); Urine Blood Negative (Negative); Urine Ketones Negative (Negative); Urine Protein Trace mg/dL (Neg-Trace)
[2024-01-26 12:42] LABS: CDiff Gene PCR NEGATIVE (Negative)
[2024-01-26 12:54] LABS: Adenovirus F 40/41 Not Detected (Not Detect.); Astrovirus Detected (Not Detect.); Campylobacter Not Detected (Not Detect.); Cryptosporidium Not Detected (Not Detect.); Cyclospora cayetanensis Not Detected (Not Detect.); E. coli EAEC Not Detected (Not Detect.); E. coli EPEC Not Detected (Not Detect.); E. coli ETEC Not Detected (Not Detect.); E. coli STEC Not Detected (Not Detect.); Entamoeba histolytica Not Detected (Not Detect.); Giardia lamblia Not Detected (Not Detect.); Norovirus GI/GII Not Detected (Not Detect.); Plesiomonas shigelloides Not Detected (Not Detect.); Rotavirus A Not Detected (Not Detect.); Salmonella Not Detected (Not Detect.); Sapovirus Not Detected (Not Detect.); Shigella sp./EIEC Not Detected (Not Detect.); Vibrio Not Detected (Not Detect.); Vibrio Cholerae Not Detected (Not Detect.); Yersinia enterocolitica Not Detected (Not Detect.)
[2024-01-26 14:25] VITALS: BP 147/92; PULSE 78; RESP 18; TEMP 36.6; O2SAT 97
--- NOTE | 2024-01-26 14:52 | PC.NURSE ---
LATE ENTRY: PT'S B/P 147/92 ON DISCHARGE. HE REPORTED THAT HE TOOK HIS VALSARTAN AND AMLODIPINE ABOUT 5 MINUTES BEFORE HIS B/P WAS TAKEN. PT ADVISED TO CHECK B'P WHEN HE GETS HOME.
== END 2024-01-26 14:28 | disposition home or self-care (01) ==
PROVIDERS: Registered Nurse Emergency; Emergency Provider Student in an Organized Health Care Education/Training Program; PCP Internal Medicine
DX: A08.4 Viral intestinal infection, unspecified (principal); R50.9 Fever, unspecified; R11.2 Nausea with vomiting, unspecified; R10.30 Lower abdominal pain, unspecified; R19.7 Diarrhea, unspecified; D89.89 Other specified disorders involving the immune mechanism, not elsewhere classified; Z79.899 Other long term (current) drug therapy; Z11.52 Encounter for screening for COVID-19
CPT/HCPCS: 36415; 74176; 80053; 81003; 83690; 84484; 85025; 87493; 87502; 87507; 87635; 93005; 96360; 96361; 99285

== ENCOUNTER → 2024-01-26 05:24 | Outpatient (BNV) | payer OTHER, SELFPAY | PROVIDERS: Emergency Provider Student in an Organized Health Care Education/Training Program; PCP Internal Medicine; Visit Provider Internal Medicine Cardiovascular Disease | DX: R10.9 Unspecified abdominal pain (principal) | CPT/HCPCS: 93010 ==

== ENCOUNTER 2024-02-13 13:18 | Outpatient (REF) | payer OTHER, SELFPAY ==
--- NOTE | ~2024-02-13 | US_ITS ---
EXAMINATION: US RETROPERITONEAL LIMITED (RENAL ONLY) CLINICAL INFORMATION: Chronic kidney disease, stage III. COMPARISON: CT abdomen and pelvis dated 01/26/2024; renal ultrasound dated 03/30/2020. TECHNIQUE: Real-time imaging of the kidneys. FINDINGS: RIGHT KIDNEY: 10.2 x 6.0 x 6.5 cm (SAG x AP x TRV). The kidney is normal in size, contour, and echogenicity. Renal cortical thickness is normal. No calculi or focal parenchymal lesions. No hydronephrosis. At the interpolar aspect, a 9 mm benign, simple cyst is seen, for which no imaging follow-up is recommended. LEFT KIDNEY: 11.9 x 6.1 x 5.0 cm (SAG x AP x TRV). The kidney is normal in size, contour, and echogenicity. Renal cortical thickness is normal. No calculi or focal parenchymal lesions. No hydronephrosis. At the upper pole, a 2.0 cm benign, simple cyst is seen, for which no imaging follow-up is recommended. At the lower pole, a 2.5 x 2.5 x 2.6 cm mildly complex cyst with fine septation is seen. Upon correlation with the CT abdomen and pelvis with intravenous contrast dated 10/18/2022 (4:346 and 7:49), this shows a stable, likely benign appearance, and no imaging follow-up is recommended. US/US renal BI IMPRESSION: Unremarkable examination.
== END 2024-02-13 13:19 | disposition home or self-care (01) ==
LOC: HO.US 13:18
PROVIDERS: PCP Internal Medicine; Visit Provider Internal Medicine Nephrology
DX: N18.30 Chronic kidney disease, stage 3 unspecified (principal)
CPT/HCPCS: 76775

== ENCOUNTER 2024-02-19 11:09 | Outpatient (AMB) | payer OTHER, SELFPAY ==
--- NOTE | 2024-02-19 11:26 | HO.NEPHOV_ITS ---
Vital Signs 02/19/24 11:27 Height 5 ft 4 in Weight 199 lb BMI 34.2 BP 122/80 Blood Pressure Location Lt brachial Position Sitting Pulse 64 Pulse Source Pulse Oximeter Pulse Oximetry (%) 97 Oxygen Delivery Method Room Air Intake Visit Reasons: 1 Month/ LVM Material Damage Adjuster Required: No Accompanied by: Self / Same As Patient Allergies No Known Allergies [No Known Allergies*] Allergy (Verified 02/19/24 11:29) HPI Comments Details: I had the privilege of seeing Mr Lainez in follow-up of his chronic kidney disease and hypertension. He is known to have coronary artery disease. Recently his PSA has gone up and is awaiting a prostate biopsy. He is anxious about delay in the prostate surgery. His blood pressure has been at goal. He denies hematuria, dysuria, chest pain, shortness of breath, pedal edema, orthostatic symptoms. He avoids nonsteroidal anti-inflammatories and maintain good hydration. Otherwise he feels well. [facility] Medical History Anemia Acid reflux Aortic stenosis CAD (coronary artery disease) Hyperlipidemia HTN (hypertension) Surgical History History of lung surgery History of esophagogastroduodenoscopy (EGD) H/O colonoscopy Hx of sigmoidoscopy Hx of cystoscopy Family History Father Cardiac arrest Hyperlipemia Mother No problems noted. Brother Cardiac arrest Social History Household Members: Spouse Alcohol intake: current Alcohol intake frequency: holidays/special occasions only Alcohol type: beer Patient Tobacco Use Status: Never used Tobacco Physical Exam Vital Signs: Last Vital Signs Pulse 64 02/19/24 11:27 BP 122/80 02/19/24 11:27 Pulse Ox 97 02/19/24 11:27 Oxygen Delivery Method Room Air 02/19/24 11:27 BMI result Body Mass Index 34.2 Const General: comfortable and no acute distress Orientation/consciousness: patient oriented x3 HEENT Head: Yes normocephalic Mouth: Normal oral and palatal mucosa present Eyes EOM: EOMs intact bilaterally Neck Neck: Yes supple Resp Auscultation: clear to auscultation bilaterally Cardio Jugular venous distension: no JVD Rate: regular rate GI Palpation (GI): Soft to palpation Auscultation: normal bowel sounds General: Yes no CVA tenderness Back/Spine/Pelvis Back: no CVA tenderness Skin General skin exam: no rashes or lesions noted Neuro General: patient oriented x3 and moves all extremities Extrem General: Yes no pedal edema Results Reviewed Nephrology Results: Hgb 12.5 g/dl (14.0-18.0) L 01/26/24 WBC 6.9 X10*3/uL (4.8-10.8) 01/26/24 Plt Count 196 X10*3/uL (160-400) 01/26/24 Sodium 142 mmol/L (135-145) 01/26/24 Potassium 3.5 mmol/L (3.3-5.1) 01/26/24 Chloride 107 mmol/L (96-108) 01/26/24 Carbon Dioxide 20 mmol/L (22-29) L 01/26/24 BUN 15 mg/dL (9-16) 01/26/24 Creatinine 0.90 mg/dL (0.5-1.4) 01/26/24 Calcium 9.3 mg/dL (8.4-10.2) 01/26/24 Urine Protein Trace mg/dL (Neg-Trace) 01/26/24 Urine Creatinine 260.84 mg/dL 01/17/24 Protein/Creatinin Ratio 0.33 (<0.2) H 01/17/24 Renal US 02/13/24 Assessment & Plan Assessment & Plan (1) CKD (chronic kidney disease) stage 3, GFR 30-59 ml/min: Code(s): N18.30 - Chronic kidney disease, stage 3 unspecified Category: Medical Qualifiers: Chronic kidney disease stage 3 subtype: stage 3a (GFR 45-59) Qualified Code(s): N18.31 - Chronic kidney disease, stage 3a (2) Nephrolithiasis: Code(s): N20.0 - Calculus of kidney Category: Medical (3) HTN (hypertension): Code(s): I10 - Essential (primary) hypertension Category: Medical Qualifiers: Hypertension type: unspecified Qualified Code(s): I10 - Essential (primary) hypertension (4) Proteinuria: Code(s): R80.9 - Proteinuria, unspecified Category: Medical Qualifiers: Proteinuria type: other Qualified Code(s): R80.8 - Other proteinuria Plan Mr Lainez 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 He is known to have hypertension as well as coronary artery disease. He denies any peripheral arterial disease, carotid stenosis, congestive heart failure or CVA. He has dyslipidemia and is on medications. His blood pressure has been at goal. He is on ARB which I plan to increase with time. His renal ultrasound was unremarkable. He may need a Doppler of his renal arteries if his serum creatinine worsens. He is awaiting prostate biopsy and surgery. He should avoid nonsteroidal anti-inflammatories. He should maintain good hydration. All these were discussed in detail. Follow- up lab work ordered follow-up appointment given. Orders: Orders Electrolytes Today I10 - Essential (primary) hypertension, N18.31 - Chronic kidney disease, stage 3a, R80.8 - Other proteinuria Calcium Today I10 - Essential (primary) hypertension, N18.31 - Chronic kidney disease, stage 3a, R80.8 - Other proteinuria Creatinine Today I10 - Essential (primary) hypertension, N18.31 - Chronic kidney disease, stage 3a, R80.8 - Other proteinuria Blood Urea Nitrogen Today I10 - Essential (primary) hypertension, N18.31 - Chronic kidney disease, stage 3a, R80.8 - Other proteinuria Protein Creatinine Ratio, Ur Today I10 - Essential (primary) hypertension, N18.31 - Chronic kidney disease, stage 3a, R80.8 - Other proteinuria Coding Level of Care Code Est Pt Level 4 (42849) Diagnoses Stage 3a chronic kidney disease N18.31 Chronic kidney disease stage 3 subtype: stage 3a (GFR 45-59) Nephrolithiasis N20.0 HTN (hypertension) I10 Hypertension type: unspecified Other proteinuria R80.8 Proteinuria type: other
[2024-02-19 11:27] VITALS: BP 122/80; PULSE 64; O2SAT 97; BMI 34.2
== END 2024-02-19 11:58 | disposition home or self-care (01) ==
PROVIDERS: PCP Internal Medicine; Visit Provider Internal Medicine Nephrology
DX: N18.31 Chronic kidney disease, stage 3a (principal); N20.0 Calculus of kidney; I10 Essential (primary) hypertension; R80.8 Other proteinuria
CPT/HCPCS: 99214

== ENCOUNTER → 2024-02-19 11:09 | Outpatient (BNVA) | payer OTHER, SELFPAY | PROVIDERS: PCP Internal Medicine; Visit Provider Internal Medicine Nephrology | DX: I12.9 Hypertensive chronic kidney disease with stage 1 through stage 4 chronic kidney disease, or unspecified chronic kidney disease (principal); N18.31 Chronic kidney disease, stage 3a; N20.0 Calculus of kidney; R80.8 Other proteinuria | CPT/HCPCS: 99212 ==

== ENCOUNTER 2024-08-02 22:37 | Emergency (ER) | payer OTHER, SELFPAY ==
[2024-08-02 22:44] VITALS: BP 154/91; BP 160/96; PULSE 73; PULSE 76; RESP 15; TEMP 37.1; O2SAT 97; O2SAT 99; BMI 37.3
--- NOTE | 2024-08-02 22:49 | PC.NURSE ---
this rn assumed care of pt. pt a&ox4, respirations even and unlabored, vss. pt reports a leaky garcia catheter. pt had prostate surgery at [facility] on saturday 07/28. pt garcia in place, no discharge note, but little urine around penile opening.
[2024-08-02 23:30] LABS: Appearance Urine Cloudy; Color Urine Yellow; Glucose Urine UA Negative (Negative); Leukocyte Esterase Urine Small (1+) (Negative); Nitrite Urine Negative (Negative); PH 5.5 (5.0-9.0); Specific Gravity - Urine 1.025 (1.005-1.025); UMIC TRIGGER UACC YES; Urine Blood Large (3+) (Negative); Urine Ketones Trace mg/dL (Negative); Urine Protein 100 (2+) mg/dL (Neg-Trace)
[2024-08-02 23:38] VITALS: BP 139/80; PULSE 84; RESP 16; TEMP 36.9; O2SAT 95
[2024-08-02 23:41] LABS: Bacteria Urine None Seen (None Seen); RBC Urine >20 /HPF (0-2); Squamous Epithelial Cell Urine 0-2 /HPF (0-2); UACC Culture Trigger YES
--- NOTE | 2024-08-03 03:12 | PC.NURSE ---
pt bladder scanned at this time, 6ml noted to be in bladder. dr. youssef aware and at bedside.
--- NOTE | 2024-08-03 04:09 | ED.MALEGU ---
HPI - Male Genitourinary General Chief complaint: Urogenital-Male Stated complaint: leaky garcia catheter Time Seen by Provider: 08/03/24 02:57 Source: patient Mode of arrival: ambulatory Limitations: no limitations History of Present Illness ED Provider: remberto ROMERO Narrative: Patient is status post TURP on 07/27 comes here as Garcia catheter was leaking around bladder scan showed empty bladder Related Data Home Medications ?Medication ?Instructions ?Recorded ?Confirmed albuterol sulfate 90 mcg/actuation 2 puff inhalation Q4-6H PRN 08/30/20 09/03/23 aerosol inhaler Wheezing dexlansoprazole 60 mg 60 mg PO DAILY 08/30/20 09/03/23 capsule,biphase delayed release fluticasone furoate 100 1 inh inhalation DAILY 08/30/20 09/03/23 mcg-vilanterol 25 mcg/dose inhalation powder fluticasone propionate 50 2 spray intranasal DAILY 08/30/20 09/03/23 mcg/actuation nasal spray,suspension valsartan 160 mg tablet 160 mg PO DAILY 08/30/20 09/03/23 latanoprost 0.005 % eye drops 1 drp ophthalmic (eye) DAILY 01/24/21 09/03/23 magnesium oxide 400 mg (241.3 mg 400 mg PO DAILY 08/10/21 09/03/23 magnesium) tablet Previous Rx's ?Medication ?Instructions ?Recorded amlodipine 5 mg tablet 5 mg PO DAILY #90 tabs 10/17/22 polyethylene glycol 3350 17 238 g PO ONCE 1 day #238 grams 01/28/23 gram/dose oral powder (Miralax) evolocumab 140 mg/mL subcutaneous 140 mg subcut Q2W #2 mL 09/06/23 pen injector (Sunshine Barrios) sucralfate 1 gram tablet (Carafate) 1 g PO BID #60 tabs 09/08/23 aspirin 81 mg tablet,delayed 81 mg PO DAILY #90 tabs 10/17/23 release fenofibrate 160 mg tablet 160 mg PO DAILY #90 tabs 11/08/23 atorvastatin 80 mg tablet 80 mg PO BEDTIME #90 tabs 11/13/23 ezetimibe 10 mg tablet 10 mg PO DAILY #90 tabs 11/13/23 ondansetron 4 mg disintegrating 4 mg PO Q8H PRN nausea and 01/26/24 tablet vomiting #10 tabs Allergies Allergy/AdvReac Type Severity Reaction Status Date / Time No Known Allergies Allergy Verified 08/02/24 22:46 [No Known Allergies*] Review of Systems Review of Systems: Yes all other systems are reviewed and are negative [facility] Past Medical History Medical History Anemia Acid reflux Aortic stenosis CAD (coronary artery disease) Hyperlipidemia HTN (hypertension) Surgical History History of lung surgery History of esophagogastroduodenoscopy (EGD) H/O colonoscopy Hx of sigmoidoscopy Hx of cystoscopy Family History Family History Father Cardiac arrest Hyperlipemia Mother No problems noted. Brother Cardiac arrest Social History Social History Household Members: Spouse Unable to assess alcohol history related to: Unknown Alcohol intake: current Alcohol intake frequency: holidays/special occasions only Alcohol type: beer Patient Tobacco Use Status: Never used Tobacco Smoked in Last 30 Days: No Use of substances other than those prescribed or required for medical reasons: No Advance Directives: No Advance Directives Information Provided: Yes Do you have a plan to hurt others: No Plan Physical Exam Vital Signs: Vital Signs: Last Vital Signs Temp 97.9 F 08/03/24 06:28 Pulse 83 08/03/24 06:28 Resp 17 08/03/24 06:28 BP 147/91 H 08/03/24 06:28 Pulse Ox 97 08/03/24 06:28 O2 Del Method Room Air 08/03/24 06:28 BMI result Body Mass Index 37.3 Appearance: Alert. Oriented X3. No acute distress. Eyes: No pallor or icterus ENT: Pharynx normal. Oral Mucosa moist Neck: Normal inspection. Neck supple. CVS: Normal heart rate and rhythm. Pulses normal. Respiratory: No respiratory distress. Equal air entry bilateral, no wheezing/rales/rhonchi Abdomen: Soft and nontender. Bowel sounds are present, no mass palpable, no CVA tenderness Skin: Skin warm and dry. Normal skin color. Normal skin turgor. Extremities: No lower extremity edema. No calf tenderness Neuro: Oriented X 3. Medications Administered Discontinued Medications Generic Name Dose Route Start Last Admin Trade Name Lasha PRN Reason Stop Dose Admin Lidocaine HCl 10 ml 08/03/24 05:57 08/03/24 06:04 Lidocaine Hcl 2 % Urojet 10 Ml Jel.Pf.Yasmany TOPICAL 08/03/24 05:58 10 ml ONCE ONE Administration Medical Decision Making Medical Decision Making MDM Narrative: Garcia catheter replaced Lab Data Labs: Lab Results 08/02/24 Range/Units 23:19 Urine Color Yellow Urine Appearance Cloudy Urine pH 5.5 (5.0-9.0) Ur Specific Cosby 1.025 (1.005-1.025) Urine Protein 100 (2+) H (Neg-Trace) mg/dL Urine Glucose (UA) Negative (Negative) mg/dL Urine Ketones Trace (Negative) mg/dL Urine Blood Large (3+) H (Negative) Urine Nitrite Negative (Negative) Ur Leukocyte Esterase Small (1+) H (Negative) Urine RBC >20 H (0-2) /HPF Urine WBC 6-10 H (0-5) /HPF Ur Squamous Epith Cells 0-2 (0-2) /HPF Urine Bacteria None Seen (None Seen) Hyaline Casts 6-10 (0-2) /LPF Discharge Plan Discharge Clinical Impression: Complication, blocked Garcia catheter Patient Disposition: Home, Self-Care Instructions: Garcia Catheter Placement and Care (ED) Additional Instructions: Care Garcia catheter as advised Follow with urologist Prescriptions: No Action amlodipine 5 mg tablet 5 mg PO DAILY Qty: 90 3RF Repatha SureClick 140 mg/mL pen injector 140 mg subcut Q2W Qty: 2 5RF aspirin 81 mg tablet,delayed release (DR/EC) 81 mg PO DAILY Qty: 90 3RF fenofibrate 160 mg tablet 160 mg PO DAILY Qty: 90 3RF atorvastatin 80 mg tablet 80 mg PO BEDTIME Qty: 90 3RF ezetimibe 10 mg tablet 10 mg PO DAILY Qty: 90 3RF sucralfate [Carafate] 1 gram tablet 1 g PO BID Qty: 60 0RF ondansetron 4 mg tablet,disintegrating 4 mg PO Q8H PRN (Reason: nausea and vomiting) Qty: 10 0RF magnesium oxide 400 mg (241.3 mg magnesium) tablet 400 mg PO DAILY Breo Ellipta 100-25 mcg/dose blister with device 1 inh inhalation DAILY fluticasone propionate 50 mcg/actuation spray,suspension 2 spray intranasal DAILY albuterol sulfate 90 mcg/actuation HFA aerosol inhaler 2 puff inhalation Q4-6H PRN (Reason: Wheezing) valsartan 160 mg tablet 160 mg PO DAILY Dexilant 60 mg capsule,biphase delayed releas 60 mg PO DAILY latanoprost 0.005 % drops 1 drp ophthalmic (eye) DAILY polyethylene glycol 3350 [Miralax] 17 gram/dose powder 238 g PO ONCE 1 Days Qty: 238 0RF Rx Instructions: Take as directed by mouth the day before your procedure. Interventions: ED Discharge Assessment Last Done: 08/03/24 06:28 Discharge Date/Time: 08/03/24 06:29 Print Language: Mongolian
[2024-08-03 04:20] VITALS: BP 147/91; PULSE 83; RESP 17; TEMP 36.6; O2SAT 97
--- NOTE | 2024-08-03 05:02 | PC.NURSE ---
as pt was leaving the ED upon discharge, pt reported garcia continued to leak. pt brought back to room at this time, aware, plan to remove garcia at this time.
--- NOTE | 2024-08-03 05:07 | PC.NURSE ---
garcia removed at this time, 10CC balloon deflated. pt tolerated removal well. full catheter intact on removal. pt reports he is going to attempt to urinate.
[2024-08-03] MEDS: Lidocaine HCl 2 % Urojet 10 ML JEL.PF.APP TOPICAL (06:04)
--- NOTE | 2024-08-03 06:27 | PC.NURSE ---
18F garcia placed, pt tolerated well. small amount of urine output noted. pt reports he feels relief. pt given hospital pants for d.c due to shorts being wet.
[2024-08-03 06:28] VITALS: BP 147/91; PULSE 83; RESP 17; TEMP 36.6; O2SAT 97
== END 2024-08-03 06:29 | disposition home or self-care (01) ==
PROVIDERS: Emergency Provider Internal Medicine; PCP Internal Medicine
DX: T83.9XXA Unspecified complication of genitourinary prosthetic device, implant and graft, initial encounter (principal); I25.10 Atherosclerotic heart disease of native coronary artery without angina pectoris; I10 Essential (primary) hypertension; Y73.8 Miscellaneous gastroenterology and urology devices associated with adverse incidents, not elsewhere classified; Y92.89 Other specified places as the place of occurrence of the external cause; Z79.899 Other long term (current) drug therapy
CPT/HCPCS: 51702; 81001; 87086; 99284; 99285

== ENCOUNTER → 2024-10-19 12:47 | Outpatient (REF) | payer OTHER, SELFPAY ==
--- NOTE | 2024-10-19 12:52 | CA_ITS ---
Transthoracic Echocardiogram Patient (Last, First, Middle): Zac Lainez, Gender: Male Date of : 1955 Age: 69 Procedure Date: 10/19/2024 Procedure Type: Transthoracic Echocardiogram Location: OP Height: 160. cm Weight: 86.18 kg BSA: 1.89 m2 Heart Rate: 75 bpm BP: 135 / 90 mmHg [employer] Teacher: ABIEL Referring MD: Yaya Blanchard MD Hr Administrative Assistant: Yaya Blanchard MD Symptoms: I35.0 - Nonrheumatic aortic (valve) stenosis Study Quality: Technically Difficult/Fair ECG Rhythm: Arrhythmia Conclusions: - 1. Normal LV ejection fraction of 60 65% with mild LVH with impaired relaxation filling pattern 2. Moderate aortic stenosis 3. Normal RV systolic pressure 4. Mildly dilated ascending aorta 4.2 cm 5. No gross pericardial effusion Findings Left Ventricle Normal left ventricular size and systolic function. There is mildly increased left ventricular wall thickness. The visually estimated ejection fraction is between 60-65%. Regional wall motion abnormalities can not be excluded due to suboptimal endocardial definition. Spectral Doppler is indicative of an impaired relaxation filling pattern. E/E prime ratio is between 8 and 15 consistent with indeterminate filling pressures. Right Ventricle Normal right ventricular cavity size and systolic function. Atria The left atrium is normal in size. There is lipomatous hypertrophy of the interatrial septum. Interatrial shunt cannot be excluded. The right atrium is normal in size. Aortic Valve There is moderate calcification of the aortic valve. There is moderate thickening of the aortic valve. There is moderate aortic valve stenosis. The peak aortic gradient is 41 mmHg.The mean gradient is 25 mmHg. The aortic valve area is 1.39 cm2. There is mild aortic valve regurgitation. Mitral Valve There is mild anterior and posterior mitral leaflet thickening. There is mild mitral annular calcification. There is trace mitral valve regurgitation. There is no mitral valve stenosis. Pulmonic Valve The pulmonic valve was not well visualized. Tricuspid Valve Likely normal tricuspid valve structure and function. There is trace tricuspid valve regurgitation. The right ventricular systolic pressure is normal. The right ventricular systolic pressure is 21 mmHg. Normal right atrial pressure. There is no evidence of pulmonary hypertension. Great Vessels The pulmonary artery was not well visualized. There is mild dilatation of the ascending aorta measuring 4.20 cm. Small plaque is seen in the sino tubular ridge. Venous The inferior vena cava is normal in size and collapses greater than 50% with inspiration. Pericardium/Pleural There is no evidence of pericardial effusion. Prior Study Comparison Changes noted compared to prior study dated: 08/27/2023. Ascending aorta as further enlarged at 4.2 cm Measurements 2D Linear Measurements IVSd: 1.54 0.6-0.9/0.6-1.0 cm LVIDd: 4.04 3.9-5.3/4.2-5.9 cm LVIDd Index: 2.14 2.4-3.2/2.2-3.1 cm/m2 LVIDs: 2.76 2.0-3.6 cm LVPWd: 1.24 0.7-1.1 cm LA Diam: 3.20 2.7-3.8/3.0-4.0 cm LAIDs Index: 1.69 1.5-2.3 cm/m2 LV Mass: 261.33 67-162/88-224 g LV Mass Index: 138.27 43-95/49-115 g/m2 LVOT Diam: 2.30 3.0+(-)1.3 cm 2D Systolic Function EF 4C: 63.80 >55% EF 2C: 61.20 >55% EF BiP: 64.30 >55% Mitral Valve MV Pk E: 0.72 MV PK A: 0.90 MV Decel Time: 282.00 E/A: 0.80 E'Lateral: 9.03 E'Medial: 5.55 E/E' Med: 13.00 E/E' Lat: 8.00 PHT: 83.00 MVA PHT: 2.65 Decel Avery: 2.57 Aortic Valve AoV Pk Alvin: 3.19 AoV Mn Alvin: 2.33 AoV VTI: 0.69 AoV Pk Grad: 41.00 Aov Mn Grad: 25.00 JIMBO Cont.VTI: 1.39 LVOT LVOT Pk Alvin: 1.01 LVOT Mn Alvin: 0.75 LVOT VTI: 0.23 LVOT Pk Grad: 4.00 LVOT Mn Grad: 3.00 LVOT Diam: 2.30 LVOT Area: 4.15 Diastolic Function MV Pk E: 0.72 MV Pk A: 0.90 E/A: 0.80 E'Medial: 5.55 E/E' Med: 13.00 E' Laterial: 9.03 E/E' Lat: 8.00 Right Ventricle TAPSE (mm): 23.60 TVS' Alvin: 11.80 Tricuspid Valve TR Pk Alvin: 2.11 TR Pk Grad: 18.00 RA Press: 3.00 RVSP: 21.00 Great Vessels Aorta Sinus of Valsalva: 4.00 2.0-3.5 cm Ao Asc: 4.20 2.1-3.4 cm Ao Arch: 3.10 Pulmonary Valve PV Pk Alvin: 1.18 Peak PV Grad: 6.00 Updated in Other Vendor System with Status of Final Yaya Blanchard MD electronically signed on 10/20/2024 11:00:06 AM with status of Final
--- OUTSIDE RECORDS SUMMARY | 2024-10-19 12:52 | XMS_ITS ---
Author Organization [facility] Address [address] [place] [phone] Care Team Providers Care Bird Trapper Name Role Phone Alvaro Guerra MD Primary Care Provider Wai Leo Jr REASON FOR VISIT ABD PAIN Encounters Encounter Location Date Provider Diagnosis [facility] [address] [place] [phone] 12/30/2023 Wai Flower Jr PLAN OF TREATMENT No Information
--- OUTSIDE RECORDS SUMMARY | 2024-10-19 12:52 | XMS_ITS ---
Author Organization [facility] Address [address] [place] [address] Care Team Providers Care Window Assembler Name Role Phone Alvaro Guerra MD Primary Care Provider Wai Leo Jr Unavailable [phone] REASON FOR VISIT RESCHEDULE PROCEDURE Encounters Encounter Location Date Provider Diagnosis [facility] [address] [place] [address] 11/06/2023 Wai Flower Jr PLAN OF TREATMENT No Information
--- OUTSIDE RECORDS SUMMARY | 2024-10-19 12:52 | XMS_ITS ---
Author Organization [facility] Address [address] [place] [address] Care Team Providers Care Window Treatment Installer Name Role Phone Alvaro Guerra MD Primary Care Provider Wai Leo Jr Unavailable REASON FOR VISIT epigastric pain,screening Encounters Encounter Location Date Provider Diagnosis [facility] Outpatient [address] [place], [place] [id number] 11/05/2023 Wai Flower Jr PLAN OF TREATMENT No Information
--- OUTSIDE RECORDS SUMMARY | 2024-10-19 12:52 | XMS_ITS | Patient Health Record ---
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 NO MORE THAN ONCE DAILY Oral for 20 Active Aspirin Low Dose 81 MG TAKE 1 TABLET BY MOUTH EVERY DAY Oral for 90 Active amLODIPine Besylate 5 MG TAKE 1 TABLET B Y MOUTH EVERY DAY Oral for 90 Active Fluticasone Propionate 50 MCG/ACT Nasal for 90 Active Pantoprazole Sodium 40 MG Oral for 90 Active Ventolin HFA 108 (90 Base) MCG/ACT Inhalation for 25 Active Valsartan 160 MG TAKE 1 TABLET BY MOSES TH EVERY DAY *REPLACES IRBESARTAN* Oral for 90 Active Combigan 0.2-0.5 % INSTILL 1 DROP BOTH EYES EVERY TWELVE HOURS Ophthalmic for 37 Active Atorvastatin Calcium 80 MG Oral for 90 Active Ezetimibe 10 MG TAKE 1 TABLET BY MOSES TH EVERY DAY Oral for 90 Active MiraLax (colon prep) 17 GM/SCOOP mixed with Gatorade or Crystal Light Orally begin at 5:00 p.m. the day before the procedure for 1 day 09/23/2023 Active Fenofibrate 160 MG TAKE 1 TABLET BY MOSES TH EVERY DAY Oral for 90 Active Prolensa 0.07 % Ophthalmic for 60 Active Magnesium Oxide -Mg Supplement 400 (240 Mg) MG TAKE 1 TABLET BY MOUTH EVERY DAY Oral for 90 Active Sucralfate 1 GM TAKE 1 TABLET BY MOSES TH TWICE A DAY Oral for 30 Active IMMUNIZATIONS Vaccine Route Administration Date Status Comme nts Influenza Unknown 08/06/2023 Administered SOCIAL HISTORY Tobacco Use: Social History Observation Description Date Details (start date - stop date) Never Smoker NA - NA Sex Assigned At : Social History Observation Description Sex Assigned At Unknown Tobacco Use/Smoking Question Answer Notes Patient is a nonsmoker Alcohol Screen Question Answer Notes Did you have a drink contain ing alcohol in the past year? Yes How often did you have a dri nk containing alcohol in the past year? 2 to 4 times a month (2 points) How many drinks did you have on a typical day when you were drinking in the past year? 3 or 4 drinks (1 point) How often did you have 6 or more drinks on one occasion in the past year? Never (0 point) Points 3 Interpretation Negative PROBLEMS Problem Type ICD Code Onset Dates Problem Status W/U Status Risk SNOMED Code Notes Problem Epigastric pain (R10.13) Active confirmed 91124162 Problem Colon cancer screening (Z12.11) Active confirmed [id number] Encounters Encounter Location Date Provider Diagnosis [facility] Outpatient [address] [place], [place] [id number] 11/05/2023 Wai Flower Jr [facility] [address] [place] [phone] 12/30/2023 Wai Flower Jr [facility] [address] [place] [phone] 11/06/2023 Wai Flower Jr PLAN OF TREATMENT Future Test Test Name Order Date UPPER GI ENDOSCOPY 09/23/2023 COLONOSCOPY 09/23/2023 Insurance Providers Payer Name Payer Address Payer Phone Subscriber Number Group Number Insured Name Patient Relationship to Insured Coverage Start Date Coverage End Date MEDICARE OF [place] [address] [place] [id number] RAY MARQUEZ Self - patient is the insured MEDICAID [facility] [address] [place] [phone] [id number] RAY MARQUEZ Self - patient is the insured MEDICAL (GENERAL) HISTORY Medical History History ICD Code Hypertension Asthma Arthritis Nephrolithiasis Gastroesophageal reflux disease Hyperlipidemia Surgical History Surgery Date(Month/Year) lung surgery on left side about 5 years ago Hospitalization History Reason Date(Month/Year) for stomach 09/12
== END ==
LOC: HO.CARD 12:47
PROVIDERS: PCP Internal Medicine; Visit Provider Internal Medicine Cardiovascular Disease
DX: I35.0 Nonrheumatic aortic (valve) stenosis (principal); I25.10 Atherosclerotic heart disease of native coronary artery without angina pectoris
CPT/HCPCS: 93306

== ENCOUNTER → 2024-10-19 12:52 | Outpatient (BNV) | payer OTHER, SELFPAY | PROVIDERS: PCP Internal Medicine; Visit Provider Internal Medicine Cardiovascular Disease | DX: I35.2 Nonrheumatic aortic (valve) stenosis with insufficiency (principal); I35.8 Other nonrheumatic aortic valve disorders; I34.81 Nonrheumatic mitral (valve) annulus calcification | CPT/HCPCS: 93306 ==

== ENCOUNTER 2025-05-11 11:00 | Outpatient (RCR) | payer OTHER, SELFPAY | END 2025-06-10 13:28 | disposition home or self-care (01) | LOC: HO.PT 11:00 | PROVIDERS: PCP Internal Medicine; Visit Provider Physician Assistant | DX: N39.3 Stress incontinence (female) (male) (principal) | CPT/HCPCS: 97112; 97140; 97161; 97530 ==

== ENCOUNTER 2025-09-23 14:44 | Outpatient (AMB) | payer OTHER, SELFPAY ==
[2025-09-23 14:48] VITALS: BP 128/78; PULSE 78; BMI 33.4
--- NOTE | 2025-09-23 14:48 | MHC.OFFVIS ---
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 Instructions: Doctor's Order ezetimibe 10 mg PO DAILY fenofibrate 160 mg PO DAILY fluticasone furoate-vilanterol 100-25 mcg/dose 1 inh inhalation DAILY fluticasone propionate 50 mcg/actuation 2 sprays intranasal DAILY latanoprost 0.005% 1 drp ophthalmic (eye) DAILY magnesium oxide 400 mg PO DAILY ondansetron 4 mg PO Q8H PRN polyethylene glycol 3350 (Miralax) 238 grams PO ONCE 1 day sucralfate (Carafate) 1 g PO BID valsartan 160 mg PO DAILY HPI Comments Details: This is a 70-year-old male patient coming in for a overdue follow-up visit after 2 years. Patient with a history of hypertension, hyperlipidemia, aortic stenosis, and coronary artery disease. Patient reports that his cardiac health has been well without any symptoms of exertional chest pain, shortness of breath, palpitations, dizziness, orthopnea, PND, leg edema, presyncope, or syncope. Patient does note that he has been having a lot of issues in the last 2 years where he was diagnosed with prostate cancer is now status post surgical resection. He also is reporting lot of right shoulder and arm pain from a rotator cuff tear for which he is meeting with orthopedics next month. Patient is otherwise reporting compliance with all his medications. PENDING SALE TO [facility] Medical History Atypical angina Chest pain Anemia Acid reflux Aortic stenosis CAD (coronary artery disease) Hyperlipidemia HTN (hypertension) Surgical History History of lung surgery History of esophagogastroduodenoscopy (EGD) H/O colonoscopy Hx of sigmoidoscopy Hx of cystoscopy Family History Father Cardiac arrest Hyperlipemia Mother No problems noted. Brother Cardiac arrest Social History Household Members: Spouse Alcohol intake: current Alcohol intake frequency: holidays/special occasions only Alcohol type: beer Patient Tobacco Use Status: Never used Tobacco Review of Systems Const Denies daytime sleepiness, Denies difficulty sleeping, Denies snoring, Denies stops breathing during sleep and Denies weakness Card Denies chest pain, Denies rapid heart rate, Denies irregular heart rhythm, Denies claudication, Denies leg edema, Denies lightheadedness, Denies palpitations, Denies dyspnea, Denies dyspnea on exertion, Denies orthopnea, Denies paroxysmal nocturnal dyspnea and Denies slow heart rate Resp Denies cough, Denies dyspnea, Denies dyspnea on exertion and Denies snoring GI Reports no additional complaints, Denies hematochezia, Denies change in stool character and Denies dyspepsia Musc Denies abnormal gait, Denies muscle weakness and Denies numbness Neuro Denies abnormal gait, Denies numbness and Denies weakness Endo Denies palpitations Physical Exam Vital Signs: Last Vital Signs Pulse 78 09/23/25 14:48 BP 128/78 09/23/25 14:48 BMI result Body Mass Index 33.4 Const General: cooperative, healthy appearing, comfortable and no acute distress Orientation/consciousness: patient oriented x3 HEENT Head: Yes normal to inspection Neck Neck: Yes normal visual inspection, Yes trachea midline and Yes supple Chest Chest palpation & inspection: normal inspection of the chest Resp Effort & Inspection: normal respiratory effort Auscultation: clear to auscultation bilaterally, no crackles, no rales, no rhonchi and no wheezes Cardio Jugular venous distension: no JVD Palpation: normal PMI Rate: regular rate Rhythm: regular rhythm Heart sounds: S1 normal heart sound present, S2 normal heart sound present, no click, no gallops, Murmur heart sound present systolic and no rubs Peripheral pulses: Peripheral pulses 2+ throughout GI Inspection: Yes normal to inspection Palpation (GI): Soft to palpation Auscultation: normal bowel sounds Skin General skin exam: no rashes or lesions noted Neuro General: patient oriented x3 Extrem General: Yes normal to inspection, No no pedal edema and No calf tenderness Psych Appearance: grossly normal Mental Status: mental status grossly normal Speech and movement: Normal speech and movement present Office Procedures EKG Details: EKG today showed normal sinus rhythm, rate 78 beats per minute, minimal voltage for LVH, nonspecific STT wave, [place], [place] [id number], Complete Assessment & Plan Assessment & Plan (1) CAD (coronary artery disease): Comment: Sees Dr. Blanchard Code(s): I25.10 - Atherosclerotic heart disease of [place] coronary artery without angina pectoris Category: Medical Plan: 03/06/2022 patient had a coronary CTA that showed mild stenosis in the proximal LAD with 25-49% disease. Clinically stable and without any cardiac symptoms. Patient is taking his baby aspirin and denies any signs of bleeding. Patient he is also on statin and Zetia therapy. No recent lipid profile and therefore have requested patient to complete these lissette. On the list of meds, patient on Repatha which he states that he never started. Patient understands that if his levels are elevated then he may need to go on PCS K 19 inhibitor. Advised on heart healthy diet. (2) Aortic stenosis: Code(s): I35.0 - Nonrheumatic aortic (valve) stenosis Category: Medical Plan: 10/19/2024-echo study showed a normal LV systolic function with the ejection fraction between 60-65% with mild LVH and impaired relaxation filling pattern, moderate aortic stenosis, and mildly dilated ascending aorta at 4.2 cm. Cardinal symptoms of reviewed with the patient. We will plan to update an echo. (3) HTN (hypertension): Code(s): I10 - Essential (primary) hypertension Category: Medical Qualifiers: Hypertension type: unspecified Qualified Code(s): I10 - Essential (primary) hypertension Plan: Blood pressure today is well-controlled. Continue current regimen with a blood pressure goal less than 130/80. Advised monitoring blood pressures at home. Advised on a low-salt diet. (4) Hyperlipidemia: Code(s): E78.5 - Hyperlipidemia, unspecified Category: Medical Plan: As above. Advised on heart healthy diet, regular exercise, losing weight, med compliance, and aggressive management of vascular risk factors. Follow up in 6 months. In the interim, patient will call the office with any concerns or change in symptoms. This note was generated using voice recognition software. While every effort has been made to ensure accuracy and proper research program assistant, there may be occasional errors that could affect the content or meaning of the described symptoms. Orders: Orders CA echo transthoracic complete 1 Month I35.0 - Nonrheumatic aortic (valve) stenosis Lipid Panel Today I25.10 - Atherosclerotic heart disease of [place] coronary artery without angina pectoris AMB EKG-In Office Today I25.10 - Atherosclerotic heart disease of [place] coronary artery without angina pectoris Coding Level of Care Code Est Pt Level 4 (78143) Complex visit Add On [id number] Diagnoses CAD (coronary artery disease) I25.10 Aortic stenosis I35.0 HTN (hypertension) I10 Hypertension type: unspecified Hyperlipidemia E78.5 CPT Codes EKG - CPT: 82827-[id number], Complete ([id number]) Time Spent (min) 31 Comment Time spent in reviewing the chart, test results, assessment, counseling and documentation.
== END 2025-09-23 15:18 | disposition home or self-care (01) ==
PROVIDERS: PCP Internal Medicine
DX: I25.10 Atherosclerotic heart disease of native coronary artery without angina pectoris (principal); I35.0 Nonrheumatic aortic (valve) stenosis; I10 Essential (primary) hypertension; E78.5 Hyperlipidemia, unspecified
CPT/HCPCS: 93010; 99214; G2211

== ENCOUNTER → 2025-09-23 14:44 | Outpatient (BNVA) | payer OTHER, SELFPAY | PROVIDERS: PCP Internal Medicine | DX: I25.10 Atherosclerotic heart disease of native coronary artery without angina pectoris (principal); I35.0 Nonrheumatic aortic (valve) stenosis; E78.5 Hyperlipidemia, unspecified; I10 Essential (primary) hypertension; Z71.82 Exercise counseling | CPT/HCPCS: 93005; 99212 ==

== ENCOUNTER 2025-09-30 12:03 | Outpatient (REF) | payer OTHER, SELFPAY ==
[2025-09-30 15:35] LABS: Cholesterol 207 mg/dL (<200); HDL Cholesterol 48 mg/dL (>40); Triglycerides 199 mg/dL (<150)
== END 2025-09-30 12:04 ==
LOC: HO.LAB 12:03
PROVIDERS: PCP Internal Medicine
DX: I25.10 Atherosclerotic heart disease of native coronary artery without angina pectoris (principal)
CPT/HCPCS: 36415; 80061